=== PATIENT | male | born 1935 | race Caucasian/White ===

== ENCOUNTER → 2016-05-23 | Outpatient (CLI) | payer BC ==
[~2016-05-23] MED LIST: ATEN-173 PO; ATOR-26 PO; CALC500C70 PO; CELE100C PO; CLB100 PO; CMP/10 PO; CYCL10TA6 PO; CYCL1CAP19 PO; DENOINJ IM; ENOX80IN SQ; ENZA1CAP PO; EZET10TA63 PO; IBUP-103 PO; LNX125 PO; LPRI75 IM; LVQ750 PO; MTR500 PO; MTRG45 TOP; MULTTAB PO; NTRGSL/4 UT; PRED-301 PO; PRED10TA PO; ULT50 PO; WARF5TAB7 PO; [UNRECOGNIZED DRUG - CODE] PO; atenolol PO
[2016-05-23 09:56] LABS: CHOLESTEROL/HDL RATIO 2.4
== END | disposition home or self-care (01) ==
LOC: C.LAB1850 08:42
PROVIDERS: ATTEND Internal Medicine Cardiovascular Disease
DX: E78.5 Hyperlipidemia, unspecified (principal)

== ENCOUNTER → 2016-06-27 | Outpatient (CLI) | payer BC ==
--- NOTE | 2016-06-27 14:55 | DIAGNOSTIC IMAGING REPORT ---
ULTRASOUND RIGHT VENOUS DOPP LOWER EXT UNILAT CLINICAL HISTORY: Right leg swelling. Prostate carcinoma. COMPARISON STUDY: No previous studies for comparison. FINDINGS: No thrombus is visualized in the common femoral or superficial femoral vein. There is acute occlusive thrombus within the right popliteal vein. Thrombus is also visualized within the right peroneal vein. IMPRESSION: Acute right popliteal vein DVT. Electronically signed by: Chandana Rojo M.D. 06/27/2016 2:54 PM Dictated Date/Time: 06/27/2016 2:50 PM
== END | disposition home or self-care (01) ==
LOC: C.ULTRBC 14:16
PROVIDERS: ATTEND Nurse Practitioner Family
DX: C61 Malignant neoplasm of prostate (principal); I82.431 Acute embolism and thrombosis of right popliteal vein

== ENCOUNTER → 2016-08-14 | Outpatient (CLI) | payer BC ==
[~2016-08-14] MED LIST changes: -CLB100 PO; -CYCL10TA6 PO; -IBUP-103 PO
--- NOTE | 2016-08-14 13:47 | DIAGNOSTIC IMAGING REPORT ---
ABDOMEN AND PELVIS CT WITH IV AND ORAL CONTRAST CT DOSE: HISTORY: Prostate carcinoma PROSTATE CANCER F/U CR = 1.3 ON 07/24/16 TECHNIQUE: Multiaxial CT images of the abdomen and pelvis were performed following the use of intravenous and oral contrast. COMPARISON STUDY: 11/04/2015 FINDINGS: Stable basilar nodularity and calcified granulomas. Liver spleen and pancreas remain unremarkable. Pancreas remains atrophic. Bilateral renal cysts unchanged. There is interval development of mild retroperitoneal and or perinephric adenopathy. Several nodes are present measuring from 0.8 to 1.6 cm. Several retrocrural nodes are present measuring up to 9 mm. Bowel pattern is nonobstructive. The rest of chronic sigmoid diverticulosis. There is a small focus of sclerosis involving the anterior margin left femoral head. Moderate degenerative change of the osseous structures persists. The sclerotic change anterior aspect of at least one right rib is unchanged. IMPRESSION: 1. Findings of a developing and or progressive aortic and retrocrural adenopathy. 2. Possible slight progression of bony metastatic change. 3. Stable bilateral renal cysts. Electronically signed by: Prudencio Pickens M.D. 08/14/2016 1:45 PM Dictated Date/Time: 08/14/2016 1:33 PM
--- NOTE | 2016-08-14 13:54 | DIAGNOSTIC IMAGING REPORT ---
CHEST CT WITH CONTRAST CT DOSE: 783.41 mGy.cm HISTORY: PROSTATE CANCER F/U CR = 1.3 ON 07/24/16 TECHNIQUE: Multiaxial CT images of the chest were performed following the intravenous administration of contrast. COMPARISON: Chest CT 11/04/2015. FINDINGS: The central airways are patent. No pleural effusions. No pneumothorax. Multiple scattered calcified granulomas are seen throughout the lungs. Patchy groundglass density within the right lung apex also remains unchanged. No new focal lung consolidations. Mild peripheral interstitial thickening at the lung bases persists. Old, healed left rib fractures. No change in the dense sclerotic lesion within the right fifth rib. There is an 8 mm sclerotic focus within the left anterior fifth rib on image 39 of 60. This is also unchanged. No new blastic lesions identified. No change in the 12 mm right axilla lymph node. There are 2 new enlarged right axillary lymph node measuring up to 19 x 14 mm. Calcified mediastinal and hilar lymph nodes. The heart is normal in size. The central pulmonary arteries are patent. Normal caliber thoracic aorta. IMPRESSION: 1. Progressive right axillary lymphadenopathy. 2. No change in the dense blastic lesion within the right anterior fifth rib and small sclerotic focus within the left anterior fifth rib. 3. Stable chronic changes within the lungs. Electronically signed by: Yinka Chang M.D. 08/14/2016 1:53 PM Dictated Date/Time: 08/14/2016 1:45 PM
--- NOTE | 2016-08-14 15:07 | DIAGNOSTIC IMAGING REPORT ---
WHOLE BODY BONE SCAN HISTORY: PROSTATE CANCER RADIOTRACER: 26.3 mCi Tc-99m MDP STUDY/IMAGES: Planar anterior and posterior whole body imaging was performed 3 hours following the intravenous administration of radiotracer. COMPARISON: Bone scan 01/20/2016. FINDINGS: There is again noted faint radiotracer uptake associated with the right anterior fifth rib. Mild radiotracer uptake within the left AC joint, right L4-5 facet, and wrists favor degenerative change. This remains unchanged. There is also a focal area of radiation uptake at the left hip which favors degenerative change. IMPRESSION: No change in the mild radiotracer uptake associated with the right anterior fifth rib lesion. No additional areas of suspicious radiotracer uptake seen within the axial or appendicular skeleton. Electronically signed by: Yinka Chang M.D. 08/14/2016 3:06 PM Dictated Date/Time: 08/14/2016 3:00 PM
== END | disposition home or self-care (01) ==
LOC: C.CTS 10:55
PROVIDERS: ATTEND Nurse Practitioner Family
DX: C61 Malignant neoplasm of prostate (principal); R59.0 Localized enlarged lymph nodes; N28.1 Cyst of kidney, acquired; M89.9 Disorder of bone, unspecified

== ENCOUNTER 2016-09-29 09:37 | Inpatient (IN) | payer OTHER, BC ==
[2016-09-29] VITALS (22 sets, daily range): BP systolic 75–101; BP diastolic 43–75; PULSE 110–120; TEMP 36.4–38.1; O2SAT 81–96; BMI 26.4
[~2016-09-29] VITALS: Ht 177.8 cm; Wt 85.1 kg
[~2016-09-29 09:37] MED LIST changes: -CELE100C PO; -CMP/10 PO; -CYCL1CAP19 PO; -ENOX80IN SQ; -ENZA1CAP PO; -LNX125 PO; -LVQ750 PO; -MTR500 PO; -MTRG45 TOP; -PRED10TA PO; -ULT50 PO; -[UNRECOGNIZED DRUG - CODE] PO; -atenolol PO
[2016-09-29] MEDS ORDERED: SODIUM CHLORIDE 0.9% 500ML 500 ML IV STA ×2 (10:04→21:04)
[2016-09-29] MEDS ORDERED: CMP/10 PO (10:27)
[2016-09-29] MEDS ORDERED: ENZA1CAP PO (10:27)
[2016-09-29] MEDS ORDERED: ULT50 PO (10:27)
[2016-09-29] MEDS ORDERED: PRED10TA PO (10:27)
[2016-09-29] MEDS ORDERED: CELE100C PO (10:27)
--- NOTE | 2016-09-29 10:35 | DIAGNOSTIC IMAGING REPORT ---
CHEST ONE VIEW PORTABLE HISTORY: Short of breath. COMPARISON: Chest 06/10/2013. Chest CT 08/14/2016. FINDINGS: Multiple scattered calcified granulomas are again noted. Small peripheral airspace of passive the within the right upper lobe is not significant changed. The heart is normal in size. Calcified mediastinal lymph nodes. No pleural effusions. No pneumothorax. Right anterior fifth rib sclerotic lesion is again noted. Question small nodular density the left lung base is likely due to a left anterior fifth rib lesion. This is unchanged from the prior chest CT. IMPRESSION: No change compared to the prior chest CT. Groundglass right upper lobe opacity remains stable and may represent chronic scarring. Bilateral anterior fifth rib sclerotic lesions are again noted. Electronically signed by: Yinka Chang M.D. 09/29/2016 10:33 AM Dictated Date/Time: 09/29/2016 10:30 AM
[2016-09-29 10:57] LABS: INR 1.9 (0.9-1.1); PARTIAL THROMBOPLASTIN RATIO 1.7
[2016-09-29 11:06] LABS: BUN/CREATININE RATIO 18.9 (10-20); CREATININE 2.1 mg/dl (0.60-1.40); MAGNESIUM 2.1 mg/dl (1.8-2.4); POTASSIUM 5.4 mmol/L (3.5-5.1)
[2016-09-29 11:08] LABS: CALCIUM 9.2 mg/dl (8.5-10.1); MEAN CORPUSCULAR HGB CONC 34.5 g/dl (32-36)
[2016-09-29] MEDS ORDERED: NovoLIN-R INSULIN PER UNIT CHARGE IV STA (11:08)
[2016-09-29] MEDS ORDERED: DEXTROSE 50% 50 ML SYR IV STA (11:08)
[2016-09-29 11:13] LABS: MEAN PLATELET VOLUME 10.2 fL (7.4-10.4); PLATELET COUNT 53 K/uL (130-400)
[2016-09-29 11:18] LABS: HEMATOCRIT 36.8 % (42-52); MEAN CELL VOLUME 95.3 fL (80-100); MEAN CORPUSCULAR HEMOGLOBIN 32.9 pg (25-34); RED BLOOD COUNT 3.86 M/uL (4.7-6.1); WHITE BLOOD COUNT 0.15 K/uL (4.8-10.8)
[2016-09-29 11:22] LABS: COMPLETE YES; GIANT PLATELETS 1+; LARGE PLATELETS 1+; LYMPH % 73.3 %; LYMPH ABS # 0.11 K/uL (1.2-3.4); NEUT % 6.7 %; PLT ESTIMATE DECREASED; TOXIC GRANULATION 1+
[2016-09-29] MEDS ORDERED: NITROGLYCERIN 0.4 MG SL PER TAB CHARGE UT PRN (11:45)
[2016-09-29] MEDS ORDERED: TRAMADOL HCL 50 MG TAB PO PRN (11:45)
[2016-09-29] MEDS ORDERED: MAGNESIUM HYDROXIDE SUSP 30 ML UDC PO PRN (12:15)
[2016-09-29] MEDS ORDERED: POLYETHYLENE (MIRALAX) 17 GM PACK PO PRN (12:15)
[2016-09-29] MEDS ORDERED: ALUMINUM/MAGNESIUM/SIMETH (MAALOX MAX) 30 ML UDC PO PRN (12:15)
[2016-09-29] MEDS ORDERED: ONDANSETRON INJ 2 MG/ML 2 ML VIAL IV PRN (12:15)
--- NOTE | 2016-09-29 12:40 | History and Physical ---
History & Physical Date & Time of Service: Sep 29, 2016 at 12:21 Chief Complaint: Lethargic Primary Care Physician: Sylvia Lara MD History of Present Illness Source: patient, family This patient presents particularly one week after recent chemotherapy for metastatic prostate cancer with decreased appetite, nausea, mild abdominal pain and profound weakness. The patient has had similar events in the past after chemotherapy but has not been in the hospital most recently. Patient states he has not been in he drink much due to his nausea has tried oral antiemetics without much help. The patient did receive Neulasta one week ago on Sunday the patient had variable bowel response but has not been constipated, he claims he making timmy colored urine. His only other complaint is mild neck discomfort from DJD of the cervical spine In the emergency department he started pancytopenia due to antineoplastic chemotherapy and have acute on chronic renal failure stage III Past Medical/Surgical History Medical Problems: (1) Arthritis pain of shoulder Status: Chronic (2) Prostate cancer Permanent Comment: blastic skeletal lesions Status: Chronic Family History Cancer Heart disease Hypertension Social History Smoking Status: Former Smoker Marital Status: Occupational Status: retired Immunizations History of Influenza Vaccine: No History of Tetanus Vaccine?: utd Tetanus Immunization Date: Nov 18, 2009 History of Pneumococcal: Yes History of Hepatitis B Vaccine: No Multi-Drug Resistant Organisms History of MDRO: No Allergies Coded Allergies: Amoxicillin (Verified Allergy, Intermediate, HIVES, 06/30/16) unverified; has had them since with no problem Cephalexin (Verified Allergy, Intermediate, HIVES, 06/30/16) has had recent allergy testing; unverified Levofloxacin (Verified Allergy, Intermediate, RED VEIN, FLUSHED, 03/06/14) Valacyclovir (Verified Allergy, Unknown, Unknown rxn, 03/06/14) Azithromycin (Verified Adverse Reaction, Mild, Nausea/Vomiting, 06/30/16) unverified; has taken since without porblems Home Medications Scheduled Atenolol (Tenormin), 12.5 MG PO DAILY Atorvastatin (Lipitor), 80 MG PO DAILY Calcium/Vitamin D (Os-Colton 500 Plus D), 1 TABLET PO BID Celecoxib (Celebrex), 200 MG PO DAILY Denosumab (Xgeva), 120 MG IM Q4WK Enzalutamide (Xtandi), 160 MG PO DAILY Ezetimibe (Zetia), 10 MG PO DAILY Leuprolide Acetate (Lupron Depot), 7.5 MG IM Q3 MONTHS Multivitamins/Minerals (Mvi With Minerals), 1 TABLET PO DAILY Prednisone Tab (Prednisone), 10 MG PO DAILY Warfarin Sod (Jantoven), 2.5 MG PO 5XWK Warfarin Sod (Jantoven), 5 MG PO 2XWK Scheduled PRN Nitroglycerin (Nitrostat), 0.4 MG UT UD PRN for Chest Pain Prochlorperazine Maleate (Prochlorperazine Maleate), 10 MG PO Q8 PRN for Nausea Tramadol HCl (Tramadol HCl), 50 MG PO Q6 PRN for Pain Review of Systems ROS: well nourished well developed No double vision blurry vision No problems with speech or swallowing, but has dry mouth No palpitations, chest pain or pressure Wheezing or breathing issues Mild abdominal pain nausea without vomiting or diarrhea No burning urine urine frequency or changes in color No focal joint pain or muscle pain, but profound weakness No skin rashes gross oral lesions No unusual bruising or bleeding No focused back pain or numbness or loss of strength, but cervical spine pain as mentioned this is 3 sharp in nature /10 worsened with movements No changes in memory or confusion Physical Exam Vital Signs Date Time Temp Pulse Resp B/P (MAP) Pulse Ox O2 Delivery O2 Flow Rate FiO2 09/29/16 11:53 94 Room Air 09/29/16 11:22 103 16 105/66 94 Room Air 09/29/16 11:04 101 16 95/54 105 85/54 09/29/16 10:01 102 09/29/16 09:40 36.9 101 18 92/69 94 Room Air General Appearance: WD/WN, + mild distress Head: normocephalic, atraumatic Eyes: PERRL, EOMI, sclerae normal ENT: hearing grossly normal, pharynx normal Neck: supple, no JVD Respiratory/Chest: chest non-tender, lungs clear, normal breath sounds Cardiovascular: regular rate, rhythm, no murmur Abdomen/GI: normal bowel sounds, soft, + tenderness Back: no CVA tenderness, no muscle spasm Extremities/Musculoskelatal: no pedal edema, normal range of motion Neurologic/Psych: alert, oriented x 3 Skin: normal color, warm/dry, no rash Diagnostics Laboratory Results Results Past 24 Hours Test 09/29/16 10:35 09/29/16 10:41 Range/Units White Blood Count 0.15 4.8-10.8 K/uL Red Blood Count 3.86 4.7-6.1 M/uL Hemoglobin 12.7 14.0-18.0 g/dL Hematocrit 36.8 42-52 % Mean Corpuscular Volume 95.3 80-100 fL Mean Corpuscular Hemoglobin 32.9 25-34 pg Mean Corpuscular Hemoglobin Concent 34.5 32-36 g/dl Platelet Count 53 130-400 K/uL Mean Platelet Volume 10.2 7.4-10.4 fL Neutrophils (%) (Auto) 6.7 % Lymphocytes (%) (Auto) 73.3 % Monocytes (%) (Auto) 20.0 % Eosinophils (%) (Auto) 0.0 % Basophils (%) (Auto) 0.0 % Neutrophils # (Auto) 0.01 1.4-6.5 K/uL Lymphocytes # (Auto) 0.11 1.2-3.4 K/uL Monocytes # (Auto) 0.03 0.11-0.59 K/uL Eosinophils # (Auto) 0.00 0-0.5 K/uL Basophils # (Auto) 0.00 0-0.2 K/uL RDW Standard Deviation 44.8 36.4-46.3 fL RDW Coefficient of Variation 12.9 11.5-14.5 % Immature Granulocyte % (Auto) 0.0 % Immature Granulocyte # (Auto) 0.00 0.00-0.02 K/uL Toxic Granulation 1+ Platelet Estimate DECREASED Large Platelets 1+ Giant Platelets 1+ Prothrombin Time 21.0 9.0-12.0 SECONDS Prothromb Time International Ratio 1.9 0.9-1.1 Activated Partial Thromboplast Time 44.3 21.0-31.0 SECONDS Partial Thromboplastin Ratio 1.7 Sodium Level 133 136-145 mmol/L Potassium Level 5.4 3.5-5.1 mmol/L Chloride Level 101 98-107 mmol/L Carbon Dioxide Level 23 21-32 mmol/L Anion Gap 9.0 3-11 mmol/L Blood Urea Nitrogen 40 7-18 mg/dl Creatinine 2.10 0.60-1.40 mg/dl Est Creatinine Clear Calc Drug Dose 28.0 ml/min Estimated GFR () 33.0 Estimated GFR (Non- 28.5 BUN/Creatinine Ratio 18.9 10-20 Random Glucose 93 70-99 mg/dl Calcium Level 9.2 8.5-10.1 mg/dl Magnesium Level 2.1 1.8-2.4 mg/dl Total Bilirubin 1.1 0.2-1 mg/dl Direct Bilirubin 0.4 0-0.2 mg/dl Aspartate Amino Transf (AST/SGOT) 22 15-37 U/L Alanine Aminotransferase (ALT/SGPT) 21 12-78 U/L Alkaline Phosphatase 47 45-117 U/L Total Protein 6.6 6.4-8.2 gm/dl Albumin 2.9 3.4-5.0 gm/dl Bedside Troponin I < 0.030 0-0.045 ng/ml CXR normal (minor changes rul non acute) Normal EKG Impression Assessment and Plan 79-year-old male with pancytopenia related to antineoplastic medication as treatment for prostate cancer. With acute on chronic renal failure stage III Regarding his pancytopenia is hemoglobin is 12. Platelets are 53 and neutrophil count is less than 0.1. The patient did receive Neulasta and should have a rebound of his bone marrow soon. We'll provide supportive care, he does not need platelet transfusion at this point in time as he is not bleeding, and he will have Neutropenic precautions Acute renal failure with hyperkalemia, the patient will be hydrated at this time he is no acute EKG changes not administer Kayexalate unless this persists and is currently 5.4 normal being 5.1 or less Coumadin anticoagulation for DVT in May, I found coagulation clinic who follows his INR since he was 3 months since his acute event we will let her know regarding the continuation of Coumadin versus transition to Lovenox at preventative dosing History of coronary artery disease status post stenting and and non-STEMI no aspirin due to low platelet count continue atenolol and risk reduction with atorvastatin and Zetia Level of Care Med/Surg Advanced Directives Existing Living Will: Yes Existing Power of Asset Recovery Specialist: Yes Resuscitation Status FULL RESUSCITATION VTE Prophylaxis VTE Risk Assessment Done? Y/N: Yes Risk Level: High Given or contraindicated: Warfarin (Coumadin)
[2016-09-29] MEDS ORDERED: HYDROCORTISONE IV 50 MG in SYRINGE 0 ML IV SCH (14:00)
[2016-09-29] MEDS: SODIUM CHLORIDE 0.9% 1000ML 1,000 ML IV SCH ×2 (14:23→22:01)
[2016-09-29 14:57] LABS: URINE APPEARANCE CLEAR (CLEAR); URINE BILIRUBIN NEG (NEG); URINE COLOR DK YELLOW; URINE EPITHELIAL CELL AUTO 20-30 /lpf (0-5); URINE NITRITE NEG (NEG); URINE PH 5.5 (4.5-7.5); URINE SPECIFIC GRAVITY 1.018 (1.000-1.030); UROBILINOGEN NEG (NEG)
[2016-09-29 15:08] LABS: MANUAL MICROSCOPIC REQUIRED? NO; REVIEW REQ? YES
[2016-09-29] MEDS ORDERED: WARFARIN SOD 5 MG TAB PO SCH (16:00)
[2016-09-29 16:07] LABS: URINE PATH CASTS 0-3 GRANULAR CASTS /lpf (0)
[2016-09-29] MEDS ORDERED: SODIUM CHLORIDE 0.9% 500ML 500 ML IV SCH (16:15)
[2016-09-29] MEDS ORDERED: MoRPHine SULFATE 2 MG/ML CARP IV PRN (16:15)
--- NOTE | 2016-09-29 16:29 | EMERGENCY ROOM VISIT NOTE ---
History Report prepared by Meaghan: Milly Drummond Under the Supervision of: Dr. Nathanael Villagran M.D. First contact with patient: 09:56 Chief Complaint: WEAKNESS Stated Complaint: LETHARGIC History of Present Illness The patient is a 81 year old male who presents to the Emergency Room with complaints of weakness beginning 2 weeks ago. The patient states that he has metastatic prostate cancer that was found in 2 lymph nodes. He states that he had chemotherapy 8 days ago and that he has felt weak ever since, but did not pass out. He reports that he was short of breath this morning and has also had abdominal pain which has subsided. He denies vomiting, chest pain, fevers, and headaches. The patient states that he has not had much to eat since yesterday. He reports that he had clots in his right leg and that he is currently on Coumadin. His right leg is normally larger than the left. The patient also complains of right shoulder pain from arthritis that he has had for 10 years. He came in today because he felt weaker than normal today. Source of History: patient Onset: 2 weeks ago Position: other (global) Quality: other (weakness ) Timing: constant Modifying Factors (Relieving): other (none) Associated Symptoms: + SOB, + abdominal pain, No fevers, No headache, No chest pain, No vomiting Review of Systems See HPI for pertinent positives & negatives. A total of 10 systems reviewed and were otherwise negative. Past Medical & Surgical Medical Problems: (1) Arthritis pain of shoulder (2) CAD (coronary artery disease) (3) Chronic diastolic (congestive) heart failure (4) Pancytopenia due to antineoplastic chemotherapy (5) Prostate cancer Family History Cancer Heart disease Hypertension Social History Smoking Status: Never Smoker Alcohol Use: occasionally Marital Status: Housing Status: lives with significant other Occupation Status: retired Current/Historical Medications Scheduled Atenolol (Tenormin), 12.5 MG PO DAILY Atorvastatin (Lipitor), 80 MG PO DAILY Calcium/Vitamin D (Os-[place] 500 Plus D), 1 TABLET PO BID Celecoxib (Celebrex), 200 MG PO DAILY Denosumab (Xgeva), 120 MG IM Q4WK Ezetimibe (Zetia), 10 MG PO DAILY Leuprolide Acetate (Lupron Depot), 7.5 MG IM Q3 MONTHS Multivitamins/Minerals (Mvi With Minerals), 1 TABLET PO DAILY Prednisone Tab (Prednisone), 10 MG PO DAILY Warfarin Sod (Jantoven), 2.5 MG PO 5XWK Warfarin Sod (Jantoven), 5 MG PO 2XWK Scheduled PRN Nitroglycerin (Nitrostat), 0.4 MG UT UD PRN for Chest Pain Prochlorperazine Maleate (Prochlorperazine Maleate), 10 MG PO Q8 PRN for Nausea Tramadol HCl (Tramadol HCl), 50 MG PO Q6 PRN for Pain Allergies Coded Allergies: Amoxicillin (Verified Allergy, Intermediate, HIVES, 06/30/16) unverified; has had them since with no problem Cephalexin (Verified Allergy, Intermediate, HIVES, 06/30/16) has had recent allergy testing; unverified Levofloxacin (Verified Allergy, Intermediate, RED VEIN, FLUSHED, 03/06/14) Valacyclovir (Verified Allergy, Unknown, Unknown rxn, 03/06/14) Azithromycin (Verified Adverse Reaction, Mild, Nausea/Vomiting, 06/30/16) unverified; has taken since without porblems Physical Exam Vital Signs Date Time Temp Pulse Resp B/P (MAP) Pulse Ox O2 Delivery O2 Flow Rate FiO2 09/29/16 11:53 94 Room Air 09/29/16 11:22 103 16 105/66 94 Room Air 09/29/16 11:04 101 16 95/54 105 85/54 09/29/16 10:01 102 09/29/16 09:40 36.9 101 18 92/69 94 Room Air Physical Exam Constitutional: Vital signs reviewed. Hypotensive. Eyes: Pupils are equal round reactive to light. Conjunctiva are noninjected. ENT: Pharynx is clear without erythema or exudate. Mucous membranes are moist. Neck supple without meningeal signs. No midline tenderness to the cervical spine. Respiratory: Clear to auscultation bilaterally. Breath sounds are equal bilaterally. Cardiovascular: Regular rate and rhythm. No rubs or gallops. GI: Soft, nondistended and nontender. Bowel sounds are present. Musculoskeletal: Right leg is larger than the left. No lower extremity tenderness. No bony tenderness to the left shoulder. Integumentary: No cyanosis. Neurological: The patient is awake and alert. No focal deficits. Psychiatric: Normal affect. Medical Decision & Procedures ER Provider Diagnostic Interpretation: X-ray results as stated below per interpretation by me and the radiologist: CHEST ONE VIEW PORTABLE HISTORY: Short of breath. COMPARISON: Chest 06/10/2013. Chest CT 08/14/2016. FINDINGS: Multiple scattered calcified granulomas are again noted. Small peripheral airspace of passive the within the right upper lobe is not significant changed. The heart is normal in size. Calcified mediastinal lymph nodes. No pleural effusions. No pneumothorax. Right anterior fifth rib sclerotic lesion is again noted. Question small nodular density the left lung base is likely due to a left anterior fifth rib lesion. This is unchanged from the prior chest CT. IMPRESSION: No change compared to the prior chest CT. [place]glass right upper lobe opacity remains stable and may represent chronic scarring. Bilateral anterior fifth rib sclerotic lesions are again noted. Electronically signed by: Yinka Chang M.D. 09/29/2016 10:33 AM Dictated Date/Time: 09/29/2016 10:30 AM Laboratory Results 09/29/16 10:35 Red Blood Count 3.86, Mean Corpuscular Volume 95.3, Mean Corpuscular Hemoglobin 32.9, Mean Corpuscular Hemoglobin Concent 34.5, Mean Platelet Volume 10.2, Neutrophils (%) (Auto) 6.7, Lymphocytes (%) (Auto) 73.3, Monocytes (%) (Auto) 20.0, Eosinophils (%) (Auto) 0.0, Basophils (%) (Auto) 0.0, Neutrophils # (Auto ) 0.01, Lymphocytes # (Auto) 0.11, Monocytes # (Auto) 0.03, Eosinophils # (Auto ) 0.00, Basophils # (Auto) 0.00 09/29/16 10:35 Test 09/29/16 00:00 09/29/16 10:35 09/29/16 10:41 Urine Color DK YELLOW Urine Appearance CLEAR (CLEAR) Urine pH 5.5 (4.5-7.5) Urine Specific [place] 1.018 (1.000-1.030) Urine Protein 2+ (NEG) Urine Glucose (UA) NEG (NEG) Urine Ketones NEG (NEG) Urine Occult Blood 1+ (NEG) Urine Nitrite NEG (NEG) Urine Bilirubin NEG (NEG) Urine Urobilinogen NEG (NEG) Urine Leukocyte Esterase NEG (NEG) Urine WBC (Auto) 1-5 /hpf (0-5) Urine RBC (Auto) 0-4 /hpf (0-4) Urine Hyaline Casts (Auto) 10-30 /lpf (0-5) Urine Epithelial Cells (Auto) 20-30 /lpf (0-5) Urine Bacteria (Auto) NEG (NEG) Urine Pathogenic Casts 0-3 GRANULAR CASTS /lpf (0) White Blood Count 0.15 K/uL (4.8-10.8) Red Blood Count 3.86 M/uL (4.7-6.1) Hemoglobin 12.7 g/dL (14.0-18.0) Hematocrit 36.8 % (42-52) Mean Corpuscular Volume 95.3 fL (80-100) Mean Corpuscular Hemoglobin 32.9 pg (25-34) Mean Corpuscular Hemoglobin Concent 34.5 g/dl (32-36) Platelet Count 53 K/uL (130-400) Mean Platelet Volume 10.2 fL (7.4-10.4) Neutrophils (%) (Auto) 6.7 % Lymphocytes (%) (Auto) 73.3 % Monocytes (%) (Auto) 20.0 % Eosinophils (%) (Auto) 0.0 % Basophils (%) (Auto) 0.0 % Neutrophils # (Auto) 0.01 K/uL (1.4-6.5) Lymphocytes # (Auto) 0.11 K/uL (1.2-3.4) Monocytes # (Auto) 0.03 K/uL (0.11-0.59) Eosinophils # (Auto) 0.00 K/uL (0-0.5) Basophils # (Auto) 0.00 K/uL (0-0.2) RDW Standard Deviation 44.8 fL (36.4-46.3) RDW Coefficient of Variation 12.9 % (11.5-14.5) Immature Granulocyte % (Auto) 0.0 % Immature Granulocyte # (Auto) 0.00 K/uL (0.00-0.02) Toxic Granulation 1+ Platelet Estimate DECREASED Large Platelets 1+ Giant Platelets 1+ Prothrombin Time 21.0 SECONDS (9.0-12.0) Prothromb Time International Ratio 1.9 (0.9-1.1) Activated Partial Thromboplast Time 44.3 SECONDS (21.0-31.0) Partial Thromboplastin Ratio 1.7 Anion Gap 9.0 mmol/L (3-11) Est Creatinine Clear Calc Drug Dose 28.0 ml/min Estimated GFR () 33.0 Estimated GFR (Non- 28.5 BUN/Creatinine Ratio 18.9 (10-20) Calcium Level 9.2 mg/dl (8.5-10.1) Magnesium Level 2.1 mg/dl (1.8-2.4) Total Bilirubin 1.1 mg/dl (0.2-1) Direct Bilirubin 0.4 mg/dl (0-0.2) Aspartate Amino Transf (AST/SGOT) 22 U/L (15-37) Alanine Aminotransferase (ALT/SGPT) 21 U/L (12-78) Alkaline Phosphatase 47 U/L (45-117) Total Protein 6.6 gm/dl (6.4-8.2) Albumin 2.9 gm/dl (3.4-5.0) Bedside Troponin I < 0.030 ng/ml (0-0.045) Laboratory results as reviewed by me. Medications Administered Medications (Trade) Dose Ordered Sig/Bisi Route Start Time Stop Time Status Last Admin Dose Admin Sodium Chloride 500 ml @ 999 mls/hr Q31M STAT IV 09/29/16 10:04 09/29/16 10:34 DC 09/29/16 11:00 999 MLS/HR Insulin Human Regular (novoLIN-R U-100 PER UNIT) 5 units NOW STAT IV 09/29/16 11:08 09/29/16 11:09 DC 09/29/16 11:25 5 UNITS Dextrose (Dextrose 50% 50ML Syringe) 30 ml NOW STAT IV 09/29/16 11:08 09/29/16 11:09 DC 09/29/16 11:27 30 ML Ondansetron HCl (Zofran Inj) 4 mg Q6H PRN IV 09/29/16 12:15 10/29/16 12:14 09/29/16 14:50 4 MG Sodium Chloride 1,000 ml @ 125 mls/hr Q8H IV 09/29/16 12:15 10/29/16 12:14 09/29/16 14:23 125 MLS/HR ECG Indication: weakness Rate (beats per minute): 101 Rhythm: sinus tachycardia Findings: Q waves (Inferior), T-wave inversion (Anterolateral), other (low voltage QRS) ED Course 0958: The patient was evaluated in room A2. A complete history and physical exam was performed. 1004: Ordered Sodium Chloride 500 ml @ 999 mls/hr IV. 1108: Ordered Dextrose 30 ml IV, Insulin Human Regular 5 units IV. 1118: I discussed the test results with the patient. 1125: I spoke with Dr. Kimbrough of [facility]. We discussed the patient and his results. The patient will be further evaluated by Dr. Kimbrough. Medical Decision This is an 81-year-old male who presents with weakness. Differential diagnosis includes anemia, neutropenia, infection, dehydration, renal failure, cardiac. I did perform a limited focused review of portions of the patient's old chart on the electronic medical record. The patient has had no recent pertinent visits to this hospital. The patient was found to be hypotensive. Medication Reconciliation: I attest that I have personally reviewed the patient' s current medication list. I did evaluate the patient as noted above. The patient is presenting with generalized weakness. He recently had chemotherapy. He is mildly hypotensive. IV access was established. The patient was placed on a continuous monitor tech. I did treat him with normal saline IV. I did order and personally review the patient's 12-lead EKG and chest x-ray as described above. I did order and review the patient's blood work as noted in the electronic medical record. He is severely neutropenic. He denies any fever. Neutropenia precautions were observed. He also has worsening kidney function. His potassium is elevated. I did treat him with IV insulin and glucose. I did discuss the test results with the patient. I did discuss case with the hospitalist and high risk case manager. Consults Time Called: 1120 Consulting Physician: Dr. Kimbrough- [facility] Returned Call: [address] Kimbrough of [facility]. We discussed the patient and his results. The patient will be further evaluated by Dr. Kimbrough. Impression Primary Impression: Severe neutropenia Additional Impressions: Acute renal failure Hypotension Hyperkalemia Subtherapeutic international normalized ratio (INR) Scribe Attestation The scribe's documentation has been prepared under my direct and personally reviewed by me in its entirety. I confirm that the note above accurately reflects all work, treatment, procedures, and medical decision making performed by me. Departure Information Dispostion Being Evaluated By Hospitalist Referrals Sylvia Lara MD (PCP) Patient Instructions My [facility] Problem Qualifiers Additional Impressions: Acute renal failure Acute renal failure type: unspecified Qualified Codes: N17.9 - Acute kidney failure, unspecified Hypotension Hypotension type: unspecified hypotension type Qualified Codes: I95.9 - Hypotension, unspecified
--- NOTE | 2016-09-29 16:46 | DIAGNOSTIC IMAGING REPORT ---
CT OF THE HEAD WITHOUT CONTRAST CLINICAL HISTORY: Low platelets. Evaluate for hemorrhage. COMPARISON STUDY: Head CT February 15, 2014. CT DOSE: 1228.53 mGy.cm TECHNIQUE: Helical axial images of the head were obtained without IV contrast. Automated exposure control was utilized for the study. FINDINGS: No acute intracranial hemorrhage, midline shift or mass effect is present. Ventricular system is stable. Basilar cisterns are patent. There are no extra-axial collections. Mild white matter hypodensity suggests small vessel disease. There are no findings to suggest acute dural sinus thrombosis or acute territorial infarct. A small amount of fluid is noted within the left mastoid air cells. There are no significant calvarial abnormalities. IMPRESSION: No acute intracranial findings. Electronically signed by: Trell Moseley M.D. 09/29/2016 4:44 PM Dictated Date/Time: 09/29/2016 4:41 PM
[2016-09-29] MEDS: ACETAMINOPHEN 325 MG TAB PO PRN (17:06)
[2016-09-29] MEDS ORDERED: IMIPENEM-CILASTATIN 500 MG in DEXTROSE 5% 100ML 100 ML IV ONE (17:30)
[2016-09-29] MEDS ORDERED: IMIPENEM/CILASTATIN CONSULT ACTIVE PRN (17:30)
[2016-09-29 18:32] LABS: BUN/CREATININE RATIO 16.8 (10-20); CALCIUM 8.3 mg/dl (8.5-10.1); CREATININE 2.4 mg/dl (0.60-1.40); POTASSIUM 4.7 mmol/L (3.5-5.1)
[2016-09-29] MEDS ORDERED: VANCOMYCIN CONSULT ACTIVE SCH (18:35)
[2016-09-29] MEDS ORDERED: NURSING VERBAL MED ORDER ONE ×2 (19:30→21:00)
[2016-09-29] MEDS ORDERED: ALBUMIN HUMAN 25% 12.5 GM/50 ML VIAL IV SCH ×2 (19:45→21:45)
--- NOTE | 2016-09-29 19:51 | Pharmacy Progress Note ---
Pharmacy Antibiotic Consult Date of Service: Sep 29, 2016. Pharmacy Dosing Scope Pharmacy is consulted to initiate vancomycin and imipenem IV dosing therapy, order appropriate labs and adjust drug dose/frequency. Subjective The patient is a 81 year old male admitted on Sep 29, 2016 at 12:20 with neutropenic fever. History of metastatic prostate Ca, chemotherapy one week ago , acute on chronic renal impairment. Objective Height (Feet): 5 Height (Inches): 10.00 Weight (Kilograms): 83.300 Lab Results (24hrs): Test 09/29/16 00:00 09/29/16 10:35 09/29/16 10:41 09/29/16 17:50 Urine Color DK YELLOW Urine Appearance CLEAR (CLEAR) Urine pH 5.5 (4.5-7.5) Urine Specific [place] 1.018 (1.000-1.030) Urine Protein 2+ (NEG) Urine Glucose (UA) NEG (NEG) Urine Ketones NEG (NEG) Urine Occult Blood 1+ (NEG) Urine Nitrite NEG (NEG) Urine Bilirubin NEG (NEG) Urine Urobilinogen NEG (NEG) Urine Leukocyte Esterase NEG (NEG) Urine WBC (Auto) 1-5 /hpf (0-5) Urine RBC (Auto) 0-4 /hpf (0-4) Urine Hyaline Casts (Auto) 10-30 /lpf (0-5) Urine Epithelial Cells (Auto) 20-30 /lpf (0-5) Urine Bacteria (Auto) NEG (NEG) Urine Pathogenic Casts 0-3 GRANULAR CASTS /lpf (0) White Blood Count 0.15 K/uL (4.8-10.8) Red Blood Count 3.86 M/uL (4.7-6.1) Hemoglobin 12.7 g/dL (14.0-18.0) Hematocrit 36.8 % (42-52) Mean Corpuscular Volume 95.3 fL (80-100) Mean Corpuscular Hemoglobin 32.9 pg (25-34) Mean Corpuscular Hemoglobin Concent 34.5 g/dl (32-36) Platelet Count 53 K/uL (130-400) Mean Platelet Volume 10.2 fL (7.4-10.4) Neutrophils (%) (Auto) 6.7 % Lymphocytes (%) (Auto) 73.3 % Monocytes (%) (Auto) 20.0 % Eosinophils (%) (Auto) 0.0 % Basophils (%) (Auto) 0.0 % Neutrophils # (Auto) 0.01 K/uL (1.4-6.5) Lymphocytes # (Auto) 0.11 K/uL (1.2-3.4) Monocytes # (Auto) 0.03 K/uL (0.11-0.59) Eosinophils # (Auto) 0.00 K/uL (0-0.5) Basophils # (Auto) 0.00 K/uL (0-0.2) RDW Standard Deviation 44.8 fL (36.4-46.3) RDW Coefficient of Variation 12.9 % (11.5-14.5) Immature Granulocyte % (Auto) 0.0 % Immature Granulocyte # (Auto) 0.00 K/uL (0.00-0.02) Toxic Granulation 1+ Platelet Estimate DECREASED Large Platelets 1+ Giant Platelets 1+ Prothrombin Time 21.0 SECONDS (9.0-12.0) Prothromb Time International Ratio 1.9 (0.9-1.1) Activated Partial Thromboplast Time 44.3 SECONDS (21.0-31.0) Partial Thromboplastin Ratio 1.7 Sodium Level 133 mmol/L (136-145) 132 mmol/L (136-145) Potassium Level 5.4 mmol/L (3.5-5.1) 4.7 mmol/L (3.5-5.1) Chloride Level 101 mmol/L (98-107) 101 mmol/L (98-107) Carbon Dioxide Level 23 mmol/L (21-32) 20 mmol/L (21-32) Anion Gap 9.0 mmol/L (3-11) 11.0 mmol/L (3-11) Blood Urea Nitrogen 40 mg/dl (7-18) 40 mg/dl (7-18) Creatinine 2.10 mg/dl (0.60-1.40) 2.40 mg/dl (0.60-1.40) Est Creatinine Clear Calc Drug Dose 28.0 ml/min 24.5 ml/min Estimated GFR () 33.0 28.1 Estimated GFR (Non- 28.5 24.2 BUN/Creatinine Ratio 18.9 (10-20) 16.8 (10-20) Random Glucose 93 mg/dl (70-99) 81 mg/dl (70-99) Calcium Level 9.2 mg/dl (8.5-10.1) 8.3 mg/dl (8.5-10.1) Magnesium Level 2.1 mg/dl (1.8-2.4) Total Bilirubin 1.1 mg/dl (0.2-1) Direct Bilirubin 0.4 mg/dl (0-0.2) Aspartate Amino Transf (AST/SGOT) 22 U/L (15-37) Alanine Aminotransferase (ALT/SGPT) 21 U/L (12-78) Alkaline Phosphatase 47 U/L (45-117) Total Protein 6.6 gm/dl (6.4-8.2) Albumin 2.9 gm/dl (3.4-5.0) Bedside Troponin I < 0.030 ng/ml (0-0.045) Troponin I 0.039 ng/ml (0-0.045) Chemistry Specimen Hemolysis Micro Results: 09/29 blood x2 pending Recent Pertinent Medications Item Value Date Time Imipenem/ 110 ml @ 100 mls/hr 09/30/16 0000 Cilastatin Sodium Q6H/IV 250 mg/Dextrose Vancomycin HCl 535 ml @ 200 mls/hr 09/29/16 2000 1750 mg/Sodium TODAY@2000/IV 09/29/16 1942 Chloride Imipenem/ 120 ml @ 100 mls/hr 09/29/16 1730 Cilastatin Sodium 1730 ONCE/IV 09/29/16 1803 500 mg/Dextrose Assessment & Plan Loading dose: vancomycin 1750 mg IV X 1 dose (~21 mg/kg) then: due to changing renal function will redose when random vancomycin level is less than 18. Goal peak level estimate: between 25-40 mcg/mL. Goal trough level estimate: between 15-20 mcg/mL. Random level has been ordered for: 09/30/16 with am labs. Imipenem loading dose 500 mg x1, then 250 mg IV q6h for CrCl 10-50 ml/min. Pharmacy will continue to follow and will adjust dose/frequency as necessary. Thank you
[2016-09-29] MEDS ORDERED: VANCOMYCIN INJ 1,750 MG in SODIUM CHLORIDE 0.9% 500ML 500 ML IV SCH (20:00)
--- NOTE | 2016-09-29 20:03 | DIAGNOSTIC IMAGING REPORT ---
SINGLE VIEW CHEST CLINICAL HISTORY: CHF. FINDINGS: An AP, portable, upright chest radiograph is compared to study performed the same day 09/29/2016 and correlated with chest CT dated 08/14/2016. The examination is significantly degraded by portable technique and patient rotation. There are calcified mediastinal and hilar lymph nodes. The heart is enlarged and there is atherosclerotic calcification of the thoracic aorta. The pulmonary vasculature is noncongested. Chronic interstitial thickening is noted. Numerous calcified granulomas and foci of parenchymal scarring are similar to previous. No lobar consolidation or large pleural effusion is identified. Left basilar atelectasis is observed. No pneumothorax is seen. The bony thorax is grossly intact. IMPRESSION: 1. Cardiomegaly without radiographic evidence of congestive failure. 2. No lobar consolidation or pleural effusion is identified. There has been no significant change from today's earlier examination. 3. Numerous calcified granulomas, foci of parenchymal scarring, and calcified mediastinal/hilar lymph nodes are similar to previous. Electronically signed by: Ramon Ruggiero M.D. 09/29/2016 8:02 PM Dictated Date/Time: 09/29/2016 8:00 PM
[2016-09-29] MEDS ORDERED: NOREPINEPHRINE BIT INJ 8 MG in DEXTROSE 5% 500ML 500 ML IV PRN (21:17)
[2016-09-29 21:47] LABS: ISTAT ALLEN TEST Pass; ISTAT ARTERIAL BLOOD GAS HCO3 17 meq/L (19-24); ISTAT ARTERIAL BLOOD GAS PCO2 28 mmHg (35-46); ISTAT ARTERIAL BLOOD GAS PO2 75 mmHg (80-95); ISTAT ARTERIAL BLOOD GAS pH 7.39 (7.35-7.45); ISTAT CARBON DIOXIDE 17 mEq/l (24-31); ISTAT DELIVERY SYSTEM Cannula; ISTAT SITE R Radial
[2016-09-29 21:47] LABS: ISTAT ALLEN TEST Pass; ISTAT ARTERIAL BLOOD GAS HCO3 19 meq/L (19-24); ISTAT ARTERIAL BLOOD GAS PCO2 36 mmHg (35-46); ISTAT ARTERIAL BLOOD GAS PO2 < 32 mmHg (80-95); ISTAT ARTERIAL BLOOD GAS pH 7.32 (7.35-7.45); ISTAT CARBON DIOXIDE 20 mEq/l (24-31); ISTAT DELIVERY SYSTEM Cannula; ISTAT SITE R Brachial
[2016-09-29 21:49] LABS: HEMATOCRIT 29.4 % (42-52); MEAN CELL VOLUME 94.2 fL (80-100); MEAN CORPUSCULAR HEMOGLOBIN 32.7 pg (25-34); MEAN CORPUSCULAR HGB CONC 34.7 g/dl (32-36); MEAN PLATELET VOLUME 10.4 fL (7.4-10.4); PLATELET COUNT 40 K/uL (130-400); RED BLOOD COUNT 3.12 M/uL (4.7-6.1); WHITE BLOOD COUNT 0.14 K/uL (4.8-10.8)
[2016-09-29] MEDS: HYDROCORTISONE IV 100 MG in SYRINGE 0 ML IV SCH (22:13)
[2016-09-29 22:14] LABS: COMPLETE YES; EOS % 14.3 %; LYMPH % 21.4 %; LYMPH ABS # 0.03 K/uL (1.2-3.4); MONO % 21.4 %; NEUT % 42.9 %
[2016-09-29 22:17] LABS: CKMB/CK RATIO 0.7 (0-3.0)
--- NOTE | 2016-09-29 23:03 | Critical Care Consultation ---
Critical Care Consultation Date of Consultation: Sep 29, 2016. Attending Physician: Nathanael Kimbrough M.D. Reason for Consultation: Hypotension History of Present Illness The patient is an 81-year-old man with a history of prostate cancer diagnosed in 2004. He has had many different treatments for what is now metastatic prostate cancer, most recently receiving Cabizatexel at [facility] 8 days ago. He presented to the emergency department today complaining of weakness. His reports that after his treatment with chemotherapy he was constipated but that seemed to pass. He became increasingly weak to the point where he couldn't walk today. She denies any falls but he also has had some complaints of shortness of breath and decreased appetite. He had some nausea but no vomiting. She believes he was drinking well until yesterday. He cannot give me any history of present secondary to drowsiness. He has chronic neck and shoulder pain but denies any recent headache, chest pain, fevers, chills, diarrhea. He has a history of a right lower extremity DVT and has been on Coumadin since May of this year. His denies any cough, nasal congestion, chest congestion, rashes. He was seen in the emergency department where labs were drawn and he was found to be pancytopenic, specifically his white blood cell count was 0.15, platelets 53. His creatinine was also 2.1 with a potassium of 5.4. He underwent chest x- ray which shows a groundglass right upper lobe opacity which remains stable and may represent chronic scarring. He also has bilateral anterior fifth rib sclerotic lesions which were noted again. He was ordered 500 mL of normal saline, insulin and dextrose and the hospitalist service was consulted for admission. EKG showed sinus tachycardia with anterolateral T-wave inversions. He was admitted to the floor and due to hypotension at some point was transferred to telemetry. He was later transferred to the intensive care unit secondary to ongoing hypotension. It is unclear to me how much IV fluid he is actually received as nothing is documented in the I/O's for the day. A Burdick catheter placement was attempted on arrival to the ICU however it was not able to be placed secondary to resistance with the catheter. Bladder scan shows 42 mL of urine. With fluid boluses in the ICU his blood pressure has improved to the 90s systolically. Blood cultures have also been done during this admission and he has been placed on imipenem and vancomycin. 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 He is undergone brachii therapy as well as multiple medications for his cancer. His most recent chemotherapy was the first dose that he is received of that particular drug for several years. He had a 7 year remission at one point. Chronic kidney disease stage III Right lower extremity DVT Degenerative joint disease of the C-spine History of diverticulosis Hypertension Coronary artery disease status post stenting, followed by Dr. Lea Tonsillectomy Dental extractions Family History Cancer Heart disease Hypertension Social History He quit smoking in 1964. 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 He does not drink any alcohol. Smoking Status: Never Smoker Marital Status: Housing Status: lives with significant other Occupation Status: retired Allergies Coded Allergies: Amoxicillin (Verified Allergy, Intermediate, HIVES, 06/30/16) unverified; has had them since with no problem Cephalexin (Verified Allergy, Intermediate, HIVES, 06/30/16) has had recent allergy testing; unverified Levofloxacin (Verified Allergy, Intermediate, RED VEIN, FLUSHED, 03/06/14) Valacyclovir (Verified Allergy, Unknown, Unknown rxn, 03/06/14) Azithromycin (Verified Adverse Reaction, Mild, Nausea/Vomiting, 06/30/16) unverified; has taken since without porblems Home Medications Scheduled Atenolol (Tenormin), 12.5 MG PO DAILY Atorvastatin (Lipitor), 80 MG PO DAILY Calcium/Vitamin D (Os-[place] 500 Plus D), 1 TABLET PO BID Celecoxib (Celebrex), 200 MG PO DAILY Denosumab (Xgeva), 120 MG IM Q4WK Ezetimibe (Zetia), 10 MG PO DAILY Leuprolide Acetate (Lupron Depot), 7.5 MG IM Q3 MONTHS Multivitamins/Minerals (Mvi With Minerals), 1 TABLET PO DAILY Prednisone Tab (Prednisone), 10 MG PO DAILY Warfarin Sod (Jantoven), 2.5 MG PO 5XWK Warfarin Sod (Jantoven), 5 MG PO 2XWK Scheduled PRN Nitroglycerin (Nitrostat), 0.4 MG UT UD PRN for Chest Pain Prochlorperazine Maleate (Prochlorperazine Maleate), 10 MG PO Q8 PRN for Nausea Tramadol HCl (Tramadol HCl), 50 MG PO Q6 PRN for Pain Current Inpatient Medications Current Inpatient Medications Medications (Trade) Dose Ordered Sig/Bisi Route Start Time Stop Time Status Last Admin Dose Admin Atorvastatin Calcium (Lipitor Tab) 80 mg DAILY PO 09/30/16 08:00 10/30/16 08:59 EZETIMIBE (Zetia Tab) 10 mg DAILY PO 09/30/16 08:00 10/30/16 08:59 Multivitamins/ Minerals (Multivitamin W/ Minerals Tab) 1 tab DAILY PO 09/30/16 08:00 10/30/16 08:59 Tramadol HCl (Ultram Tab) 50 mg Q6 PRN PO 09/29/16 11:45 10/29/16 11:44 Acetaminophen (Tylenol Tab) 650 mg Q4H PRN PO 09/29/16 12:15 10/29/16 12:14 09/29/16 17:06 650 MG Al Hydrox/Mg Hydrox/Simethicone (Maalox Max Susp) 15 ml Q4H PRN PO 09/29/16 12:15 10/29/16 12:14 Magnesium Hydroxide (Milk Of Magnesia Susp) 30 ml Q6H PRN PO 09/29/16 12:15 10/29/16 12:14 Polyethylene (Miralax Powder Packet) 17 gm DAILY PRN PO 09/29/16 12:15 10/29/16 12:14 Ondansetron HCl (Zofran Inj) 4 mg Q6H PRN IV 09/29/16 12:15 10/29/16 12:14 09/29/16 14:50 4 MG Sodium Chloride 1,000 ml @ 125 mls/hr Q8H IV 09/29/16 12:15 10/29/16 12:14 09/29/16 22:01 125 MLS/HR Prednisone (PredniSONE TAB) 10 mg DAILY PO 10/01/16 08:00 10/31/16 08:59 Warfarin Sodium (Coumadin Tab) 2.5 mg SuTuWeThSa@1600 PO 09/30/16 16:00 10/30/16 15:59 Warfarin Sodium (Coumadin Tab) 5 mg MoFr@1600 PO 09/29/16 16:00 10/29/16 15:59 09/29/16 17:07 5 MG Imipenem/ Cilastatin Sodium 250 mg/Dextrose 110 ml @ 100 mls/hr Q6H IV 09/30/16 00:00 10/02/16 00:00 Imipenem/ Cilastatin Sodium (Consult) 1 ea UD PRN N/A 09/29/16 17:30 10/29/16 17:29 Vancomycin HCl (Consult) 1 ea UD N/A 09/29/16 18:35 10/29/16 18:34 Vancomycin HCl 1750 mg/Sodium Chloride 535 ml @ 200 mls/hr TODAY@2000 IV 09/29/16 20:00 09/30/16 02:00 09/29/16 19:42 200 MLS/HR Hydrocortisone Sodium Succinate 100 mg/Syringe 2 ml @ 4 mls/min Q8 IV 09/29/16 22:00 09/30/16 23:00 09/29/16 22:13 4 MLS/MIN Norepinephrine Bitartrate 8 mg/ Dextrose 508 ml @ 0 mls/hr Q0M PRN IV 09/29/16 21:17 10/29/16 21:16 Review of Systems A 12 point review of systems was obtained. No focal weakness, no numbness or tingling. No fevers or chills. No recent diarrhea. Urine has been dark. No back pain. Additional review of systems are negative or noncontributory at 12 point system other than what is presented in history of present illness. Physical Exam Date Time Temp Pulse Resp B/P (MAP) Pulse Ox O2 Delivery O2 Flow Rate FiO2 09/29/16 22:29 37.5 110 20 81/57 (65) 96 Room Air 09/29/16 21:04 82/51 (61) 09/29/16 20:55 36.9 114 22 78/57 (64) 94 Nasal Cannula 3.0 09/29/16 20:42 92 Nasal Cannula 3.0 09/29/16 20:41 36.8 120 22 75/43 (54) 81 Room Air 09/29/16 20:10 36.7 111 20 94/59 (71) 91 Room Air 09/29/16 20:00 Room Air 09/29/16 19:16 36.8 117 22 93/58 (70) 91 Room Air 09/29/16 18:36 99/61 (74) 09/29/16 18:06 36.6 110 24 86/53 (64) 92 Room Air 09/29/16 17:46 79/50 (60) 09/29/16 17:30 114 30 88/58 (68) 92 Room Air 09/29/16 17:00 Room Air 09/29/16 16:45 38.1 111 28 80/53 (62) 93 Room Air 09/29/16 16:42 36.6 112 24 93 09/29/16 15:51 36.6 112 26 75/52 (60) 93 Room Air 09/29/16 13:50 36.4 120 22 101/65 (77) 93 Room Air 09/29/16 13:20 117 16 105/68 09/29/16 12:29 111 16 114/75 09/29/16 12:27 110 09/29/16 11:53 94 Room Air 09/29/16 11:22 103 16 105/66 94 Room Air 09/29/16 11:04 101 16 95/54 105 85/54 09/29/16 10:01 102 09/29/16 09:40 36.9 101 18 92/69 94 Room Air General: This is an elderly man who appears younger than his stated age lying supine in no distress. Neuro: He will awaken and talk to me but falls asleep quite easily. His speech is a bit garbled secondary to his dry mouth. He will follow simple commands and move all 4 extremities spontaneously but is very weak. His exam is limited by his inability to stay awake. Tongue is midline, no facial droop HEENT: Pupils are equally round and reactive to light, no scleral icterus, oral mucosa is extremely dry. Lungs: clear to auscultation bilaterally with moderate inspiratory effort. No rales rhonchi or wheezes Heart: Mildly tachycardic, regular no murmurs noted Abdomen: Soft mildly distended nontender active bowel sounds no rebound no guarding. Extremities: Warm, satisfactory capillary refill, the right leg is slightly larger than the left around the thigh. Radial and dorsalis pedis pulses are 1+ bilaterally. He has a peripheral IV in each arm. Skin: No obvious rashes. Laboratory Results Last 24 Hours Test 09/29/16 00:00 09/29/16 10:35 09/29/16 10:41 09/29/16 17:50 Urine Color DK YELLOW Urine Appearance CLEAR Urine pH 5.5 Urine Specific [place] 1.018 Urine Protein 2+ Urine Glucose (UA) NEG Urine Ketones NEG Urine Occult Blood 1+ Urine Nitrite NEG Urine Bilirubin NEG Urine Urobilinogen NEG Urine Leukocyte Esterase NEG Urine WBC (Auto) 1-5 /hpf Urine RBC (Auto) 0-4 /hpf Urine Hyaline Casts (Auto) 10-30 /lpf Urine Epithelial Cells (Auto) 20-30 /lpf Urine Bacteria (Auto) NEG Urine Pathogenic Casts 0-3 GRANULAR CASTS /lpf White Blood Count 0.15 K/uL Red Blood Count 3.86 M/uL Hemoglobin 12.7 g/dL Hematocrit 36.8 % Mean Corpuscular Volume 95.3 fL Mean Corpuscular Hemoglobin 32.9 pg Mean Corpuscular Hemoglobin Concent 34.5 g/dl Platelet Count 53 K/uL Mean Platelet Volume 10.2 fL Neutrophils (%) (Auto) 6.7 % Lymphocytes (%) (Auto) 73.3 % Monocytes (%) (Auto) 20.0 % Eosinophils (%) (Auto) 0.0 % Basophils (%) (Auto) 0.0 % Neutrophils # (Auto) 0.01 K/uL Lymphocytes # (Auto) 0.11 K/uL Monocytes # (Auto) 0.03 K/uL Eosinophils # (Auto) 0.00 K/uL Basophils # (Auto) 0.00 K/uL RDW Standard Deviation 44.8 fL RDW Coefficient of Variation 12.9 % Immature Granulocyte % (Auto) 0.0 % Immature Granulocyte # (Auto) 0.00 K/uL Toxic Granulation 1+ Platelet Estimate DECREASED Large Platelets 1+ Giant Platelets 1+ Prothrombin Time 21.0 SECONDS Prothromb Time International Ratio 1.9 Activated Partial Thromboplast Time 44.3 SECONDS Partial Thromboplastin Ratio 1.7 Sodium Level 133 mmol/L 132 mmol/L Potassium Level 5.4 mmol/L 4.7 mmol/L Chloride Level 101 mmol/L 101 mmol/L Carbon Dioxide Level 23 mmol/L 20 mmol/L Anion Gap 9.0 mmol/L 11.0 mmol/L Blood Urea Nitrogen 40 mg/dl 40 mg/dl Creatinine 2.10 mg/dl 2.40 mg/dl Est Creatinine Clear Calc Drug Dose 28.0 ml/min 24.5 ml/min Estimated GFR () 33.0 28.1 Estimated GFR (Non- 28.5 24.2 BUN/Creatinine Ratio 18.9 16.8 Random Glucose 93 mg/dl 81 mg/dl Calcium Level 9.2 mg/dl 8.3 mg/dl Magnesium Level 2.1 mg/dl Total Bilirubin 1.1 mg/dl Direct Bilirubin 0.4 mg/dl Aspartate Amino Transf (AST/SGOT) 22 U/L Alanine Aminotransferase (ALT/SGPT) 21 U/L Alkaline Phosphatase 47 U/L Total Protein 6.6 gm/dl Albumin 2.9 gm/dl Bedside Troponin I < 0.030 ng/ml Troponin I 0.039 ng/ml Chemistry Specimen Hemolysis Test 09/29/16 21:25 09/29/16 21:27 09/29/16 21:34 09/29/16 22:25 White Blood Count 0.14 K/uL Red Blood Count 3.12 M/uL Hemoglobin 10.2 g/dL Hematocrit 29.4 % Mean Corpuscular Volume 94.2 fL Mean Corpuscular Hemoglobin 32.7 pg Mean Corpuscular Hemoglobin Concent 34.7 g/dl Platelet Count 40 K/uL Mean Platelet Volume 10.4 fL Neutrophils (%) (Auto) 42.9 % Lymphocytes (%) (Auto) 21.4 % Monocytes (%) (Auto) 21.4 % Eosinophils (%) (Auto) 14.3 % Basophils (%) (Auto) 0.0 % Neutrophils # (Auto) 0.06 K/uL Lymphocytes # (Auto) 0.03 K/uL Monocytes # (Auto) 0.03 K/uL Eosinophils # (Auto) 0.02 K/uL Basophils # (Auto) 0.00 K/uL RDW Standard Deviation 45.1 fL RDW Coefficient of Variation 13.1 % Immature Granulocyte % (Auto) 0.0 % Immature Granulocyte # (Auto) 0.00 K/uL Nucleated RBC Absolute Count (auto) 0.05 K/uL Nucleated Red Blood Cells % 33.7 % Red Blood Cell Morphology Unremarkable Total Creatine Kinase 152 U/L Creatine Kinase MB 1.0 ng/ml Creatine Kinase MB Ratio 0.7 Troponin I 0.043 ng/ml Blood Gas Sample Site R Brachial R Radial Bedside Blood Gas pH (LAB) 7.32 7.39 Bedside Blood Gas pCO2 (LAB) 36 mmHg 28 mmHg Bedside Blood Gas pO2 (LAB) < 32 mmHg 75 mmHg Bedside Blood Gas HCO3 (LAB) 19 meq/L 17 meq/L Bedside Blood Gas Total CO2 20 mEq/l 17 mEq/l Bedside Blood Gas Base Excess (LAB) -8.0 meq/L -8.0 meq/L Bedside Blood Gas O2 Saturation 29.0 % 95.0 % Marko Test Pass Pass Oxygen Delivery Device Cannula Cannula Diagnostic Results EKG from 17:32 --- sinus tachycardia nonspecific ST-T wave changes. CT brain from today, no acute intracranial findings. Chest x-ray 2 from today reviewed. No definite infiltrate or effusion. Numerous calcified granulomas and foci of parenchymal scarring and calcified mediastinal lymph nodes are present. Assessment & Plan 1. Hypotension, likely secondary to volume depletion, sepsis or both. He is responding to volume resuscitation and lactate is pending. 2. Acute kidney injury with metabolic acidosis on chronic kidney disease stage III, likely ATN. Elevated potassium earlier in the day which improved. 3. Metabolic encephalopathy, no definitive focal neurologic signs 4. Neutropenia and thrombocytopenia status post his first round of IV chemotherapy 8 days ago. He has been given Neulasta within the past week, I believe about 1 week ago. 5. History of right lower extremity DVT, on Coumadin with INR 1.9 6. Metastatic prostate cancer 7. Profound weakness Plan: Cardiovascular: I have attempted to obtain consent for triple-lumen catheter and /or PICC line. His is reluctant to sign them recently. Continue volume resuscitation and peripheral vasodilators if necessary. Continue to rule out myocardial infarction and check echocardiogram tomorrow. Discontinue atenolol Infectious disease: Continue broad antibiotic coverage with imipenem and vancomycin. Follow cultures. Await lactic acid and trend. Pro calcitonin. Heme: Continue to watch for signs of bleeding. Consult the hematology/oncology service. Hopefully his counts will begin to recover. Recheck coags tomorrow before deciding on his Coumadin dosing. Pulmonary: If he is awake enough, encourage incentive spirometry. Watch for increasing oxygen requirements and acute lung injury. Renal: Continue volume resuscitation, renal ultrasound has been ordered, appropriately dose of medications and avoid nephrotoxins. I've discontinued Celebrex. Treat elevated potassium medically. Hopefully his renal function will improve, if not attempt coudet catheter. Continue bladder scans. GI: Maintain nothing by mouth status. GI prophylaxis with proton pump inhibitor IV. Endocrine: He is on stress dose steroids started by the hospitalist service. Check a random cortisol. Neuro: Avoid sedatives. He will certainly need physical therapy and occupational therapy once he improves. I discontinued his morphine secondary to its potential sedative effects. I discussed his care in detail with his . Questions were answered. She is still deciding about blood transfusion, triple-lumen catheter and/or PICC line insertion consent. Critical care time 60 minutes
--- NOTE | 2016-09-29 23:07 | DIAGNOSTIC IMAGING REPORT ---
ULTRASOUND KIDNEYS AND BLADDER CLINICAL HISTORY: Acute renal insufficiency. COMPARISON STUDY: Abdominal CT dated 08/14/2016. TECHNIQUE: Real-time, grayscale, and color flow sonography of the kidneys and bladder is performed. Images are reviewed in the transverse and longitudinal planes. FINDINGS: Kidneys: The kidneys demonstrate cortical atrophy. The right kidney measures 10.3 x 5.1 x 7.9 cm and the left kidney measures 11.3 x 6.0 x 7.7 cm. There is no hydronephrosis. No shadowing renal calculi are identified. A 7.3 cm cyst arises from the left kidney. There is no sonographic evidence of contour deforming renal mass lesion. No perinephric fluid is identified. Bladder: The bladder is decompressed and not well assessed. Ureteral jets could not be evaluated. IMPRESSION: 1. The kidneys are atrophic and without hydronephrosis. 2. The bladder was decompressed and not well assessed. Electronically signed by: Ramon Ruggiero M.D. 09/29/2016 11:06 PM Dictated Date/Time: 09/29/2016 11:05 PM
[2016-09-29] MEDS: IMIPENEM-CILASTATIN 250 MG in DEXTROSE 5% 100ML 100 ML IV SCH (23:41)
[2016-09-30] VITALS (61 sets, daily range): BP systolic 66–147; BP diastolic 45–93; PULSE 93–111; TEMP 36.4–36.8; O2SAT 85–99; Ht 177.8 cm; Wt 85.1 kg
[2016-09-30 00:05] LABS: BUN/CREATININE RATIO 17.6 (10-20); CALCIUM 8.1 mg/dl (8.5-10.1); CREATININE 2.4 mg/dl (0.60-1.40); POTASSIUM 4.6 mmol/L (3.5-5.1)
[2016-09-30] MEDS ORDERED: NURSING VERBAL MED ORDER ONE ×3 (00:30→21:00)
[2016-09-30] MEDS ORDERED: ALBUMIN HUMAN 25% 12.5 GM/50 ML VIAL IV ONE (00:45)
[2016-09-30] MEDS ORDERED: SODIUM CHLORIDE 0.9% 500ML 500 ML IV SCH (00:45)
[2016-09-30 01:59] LABS: CREATININE 2.4 mg/dl (0.60-1.40); POTASSIUM 4.7 mmol/L (3.5-5.1)
[2016-09-30 06:04] LABS: INR 3.5 (0.9-1.1)
[2016-09-30 06:18] LABS: HEMATOCRIT 32.2 % (42-52); MEAN CELL VOLUME 95.5 fL (80-100); MEAN CORPUSCULAR HEMOGLOBIN 32.9 pg (25-34); MEAN CORPUSCULAR HGB CONC 34.5 g/dl (32-36); PLATELET COUNT 33 K/uL (130-400); RED BLOOD COUNT 3.37 M/uL (4.7-6.1); WHITE BLOOD COUNT 0.29 K/uL (4.8-10.8)
[2016-09-30] MEDS: IMIPENEM-CILASTATIN 250 MG in DEXTROSE 5% 100ML 100 ML IV SCH ×4 (06:29→23:52)
[2016-09-30] MEDS: HYDROCORTISONE IV 100 MG in SYRINGE 0 ML IV SCH (06:30)
[2016-09-30 06:42] LABS: ECHINOCYTES 2+; LARGE PLATELETS 2+; TOXIC GRANULATION 1+; VACUOLIZATION 1+
[2016-09-30 06:44] LABS: COMPLETE YES; LYMPH ABS # 0.12 K/uL (1.2-3.4); LYMPHOCYTE % 40.2 %; NEUTROPHILS % 48.6 %
[2016-09-30 06:58] LABS: BUN/CREATININE RATIO 19.9 (10-20); CALCIUM 7.5 mg/dl (8.5-10.1); CKMB/CK RATIO 4.3 (0-3.0); CREATININE 2.3 mg/dl (0.60-1.40); PHOSPHORUS 5.2 mg/dl (2.5-4.9); POTASSIUM 4.7 mmol/L (3.5-5.1); THYROID STIMULATING HORMONE 0.624 uIu/ml (0.300-4.500)
[2016-09-30] MEDS ORDERED: PERFLUTREN LIPID MICROSPHERE (DEFINITY) IV ONE (07:41)
[2016-09-30] MEDS: SODIUM CHLORIDE 0.9% 1000ML 1,000 ML IV SCH (07:41)
[2016-09-30] MEDS ORDERED: CeleBREX 200 MG CAP PO SCH (08:00)
--- NOTE | 2016-09-30 08:13 | Medical Consult ---
Consultation Date of Consultation: Sep 30, 2016. Attending Physician: Nathanael Kimbrough M.D. History of Present Illness admitted after not feeling well. low uo after chemo last week. did have g csf but found to have pancytopenia on admission. anc remains low today, wbc slightly increased to 0.29, had fever, isotated yesterday, transferred to ICU, placed on broad spectrum abx, cultures obtained, penidng. ID asked to see pt for imipenem approval. family at bedside. states some nausea and poor po intake since sun. no vomiting. no diarrhea, no abd pain, no cp,cough, sob, wheeze, low uo but no pain. cxr, renal ultrasound, head ct negative. tolerating abx. currently abfebrile, on pressors. all remaining ros reviewed and are negative. Past Medical/Surgical History Medical Problems: (1) Acute renal failure Status: Acute (2) Hyperkalemia Status: Acute (3) Hypotension Status: Acute (4) Severe neutropenia Status: Acute (5) Subtherapeutic international normalized ratio (INR) Status: Acute Family History Cancer Heart disease Hypertension Social History Smoking Status: Never Smoker Marital Status: Housing Status: lives with significant other Occupation Status: retired Allergies Coded Allergies: Amoxicillin (Verified Allergy, Intermediate, HIVES, 06/30/16) unverified; has had them since with no problem Cephalexin (Verified Allergy, Intermediate, HIVES, 06/30/16) has had recent allergy testing; unverified Levofloxacin (Verified Allergy, Intermediate, RED VEIN, FLUSHED, 03/06/14) Valacyclovir (Verified Allergy, Unknown, Unknown rxn, 03/06/14) Azithromycin (Verified Adverse Reaction, Mild, Nausea/Vomiting, 06/30/16) unverified; has taken since without porblems Current Inpatient Medications Current Inpatient Medications Medications (Trade) Dose Ordered Sig/Bisi Route Start Time Stop Time Status Last Admin Dose Admin Atorvastatin Calcium (Lipitor Tab) 80 mg DAILY PO 09/30/16 08:00 10/30/16 08:59 EZETIMIBE (Zetia Tab) 10 mg DAILY PO 09/30/16 08:00 10/30/16 08:59 Multivitamins/ Minerals (Multivitamin W/ Minerals Tab) 1 tab DAILY PO 09/30/16 08:00 10/30/16 08:59 Tramadol HCl (Ultram Tab) 50 mg Q6 PRN PO 09/29/16 11:45 10/29/16 11:44 Acetaminophen (Tylenol Tab) 650 mg Q4H PRN PO 09/29/16 12:15 10/29/16 12:14 09/29/16 17:06 650 MG Al Hydrox/Mg Hydrox/Simethicone (Maalox Max Susp) 15 ml Q4H PRN PO 09/29/16 12:15 10/29/16 12:14 Magnesium Hydroxide (Milk Of Magnesia Susp) 30 ml Q6H PRN PO 09/29/16 12:15 10/29/16 12:14 Polyethylene (Miralax Powder Packet) 17 gm DAILY PRN PO 09/29/16 12:15 10/29/16 12:14 Ondansetron HCl (Zofran Inj) 4 mg Q6H PRN IV 09/29/16 12:15 10/29/16 12:14 09/29/16 14:50 4 MG Sodium Chloride 1,000 ml @ 125 mls/hr Q8H IV 09/29/16 12:15 10/29/16 12:14 09/30/16 07:41 125 MLS/HR Warfarin Sodium (Coumadin Tab) 5 mg MoFr@1600 PO 09/29/16 16:00 10/29/16 15:59 Future Hold 09/29/16 17:07 5 MG Imipenem/ Cilastatin Sodium 250 mg/Dextrose 110 ml @ 100 mls/hr Q6H IV 09/30/16 00:00 10/02/16 00:00 09/30/16 06:29 100 MLS/HR Imipenem/ Cilastatin Sodium (Consult) 1 ea UD PRN N/A 09/29/16 17:30 10/29/16 17:29 Vancomycin HCl (Consult) 1 ea UD N/A 09/29/16 18:35 10/29/16 18:34 Norepinephrine Bitartrate 8 mg/ Dextrose 508 ml @ 0 mls/hr Q0M PRN IV 09/29/16 21:17 10/29/16 21:16 09/29/16 23:40 0 MLS/HR Hydrocortisone Sodium Succinate 75 mg/Syringe 1.5 ml @ 4 mls/min Q8 IV 09/30/16 14:00 09/30/16 23:00 Physical Exam Date Time Temp Pulse Resp B/P (MAP) Pulse Ox O2 Delivery O2 Flow Rate FiO2 09/30/16 06:10 22 117/82 (94) 89 Nasal Cannula 5.0 09/30/16 06:00 21 129/92 (104) 09/30/16 05:50 18 112/82 (92) 88 Nasal Cannula 5.0 09/30/16 05:40 22 121/89 (100) 86 Nasal Cannula 3.0 09/30/16 05:30 20 119/90 (100) 09/30/16 05:20 20 115/81 (92) 88 Nasal Cannula 3.0 09/30/16 05:10 18 104/76 (85) 09/30/16 05:00 19 115/76 (89) 89 Nasal Cannula 3.0 09/30/16 04:50 18 111/79 (90) 09/30/16 04:45 23 90 09/30/16 04:45 23 90 09/30/16 04:40 17 110/83 (92) 09/30/16 04:30 18 108/78 (88) 09/30/16 04:22 20 109/88 (95) 89 09/30/16 04:15 31 88 09/30/16 04:10 20 110/79 (89) 09/30/16 04:00 36.4 18 110/80 (90) 91 Nasal Cannula 3.0 09/30/16 04:00 Nasal Cannula 3.0 09/30/16 03:50 16 105/76 (86) 90 09/30/16 03:45 21 90 09/30/16 03:40 25 117/85 (96) 09/30/16 03:30 20 109/77 (88) 90 09/30/16 03:20 19 105/78 (87) 09/30/16 03:15 18 89 09/30/16 03:10 20 114/82 (93) 09/30/16 03:01 19 115/77 (90) 91 09/30/16 02:50 16 99/68 (78) 09/30/16 02:40 16 88/65 (73) 09/30/16 02:30 17 87/59 (68) 09/30/16 02:21 22 83/64 (70) 93 09/30/16 02:11 19 93/64 (74) 93 09/30/16 02:00 24 88/61 (70) 09/30/16 01:50 18 82/55 (64) 09/30/16 01:45 21 92 09/30/16 01:40 17 75/55 (62) 09/30/16 01:31 19 66/45 (52) 09/30/16 01:30 20 94 09/30/16 01:21 20 82/56 (65) 91 09/30/16 01:15 22 94 09/30/16 01:11 22 100/74 (83) 93 Nasal Cannula 3.0 09/30/16 01:01 18 98/73 (81) 94 Nasal Cannula 3.0 09/30/16 00:30 18 93/71 (78) 92 Nasal Cannula 3.0 09/30/16 00:20 20 96/67 (77) 93 Nasal Cannula 3.0 09/30/16 00:10 16 91/70 (77) 94 Nasal Cannula 3.0 09/30/16 00:00 17 84/61 (69) 94 Nasal Cannula 3.0 09/29/16 23:59 Nasal Cannula 09/29/16 23:51 19 88/61 (70) 93 Nasal Cannula 3.0 09/29/16 23:40 23 85/59 (68) 94 Nasal Cannula 3.0 09/29/16 23:31 18 78/58 (65) 95 Nasal Cannula 3.0 09/29/16 23:20 20 79/57 (64) 91 Nasal Cannula 3.0 09/29/16 23:11 26 91/75 (80) 84 Nasal Cannula 3.0 09/29/16 23:00 36.5 23 79/55 (63) 92 Nasal Cannula 3.0 09/29/16 22:29 37.5 110 20 81/57 (65) 96 Room Air 09/29/16 21:04 82/51 (61) 09/29/16 20:55 36.9 114 22 78/57 (64) 94 Nasal Cannula 3.0 09/29/16 20:42 92 Nasal Cannula 3.0 09/29/16 20:41 36.8 120 22 75/43 (54) 81 Room Air 09/29/16 20:10 36.7 111 20 94/59 (71) 91 Room Air 09/29/16 20:00 Room Air 09/29/16 19:16 36.8 117 22 93/58 (70) 91 Room Air 09/29/16 18:36 99/61 (74) 09/29/16 18:06 36.6 110 24 86/53 (64) 92 Room Air 09/29/16 17:46 79/50 (60) 09/29/16 17:30 114 30 88/58 (68) 92 Room Air 09/29/16 17:00 Room Air 09/29/16 16:45 38.1 111 28 80/53 (62) 93 Room Air 09/29/16 16:42 36.6 112 24 93 09/29/16 15:51 36.6 112 26 75/52 (60) 93 Room Air 09/29/16 13:50 36.4 120 22 101/65 (77) 93 Room Air 09/29/16 13:20 117 16 105/68 09/29/16 12:29 111 16 114/75 09/29/16 12:27 110 09/29/16 11:53 94 Room Air 09/29/16 11:22 103 16 105/66 94 Room Air 09/29/16 11:04 101 16 95/54 105 85/54 09/29/16 10:01 102 09/29/16 09:40 36.9 101 18 92/69 94 Room Air General Appearance: WD/WN, no apparent distress Head: normocephalic, atraumatic Eyes: normal inspection, EOMI Neck: supple Respiratory/Chest: lungs clear, normal breath sounds, no respiratory distress Cardiovascular: regular rate, rhythm, no edema Abdomen/GI: non tender, soft Extremities/Musculoskelatal: normal inspection, no calf tenderness, no pedal edema Neurologic/Psych: alert, oriented x 3 Skin: normal color Laboratory Results Last 24 Hours Test 09/29/16 10:35 09/29/16 10:41 09/29/16 17:50 09/29/16 21:25 White Blood Count 0.15 K/uL 0.14 K/uL Red Blood Count 3.86 M/uL 3.12 M/uL Hemoglobin 12.7 g/dL 10.2 g/dL Hematocrit 36.8 % 29.4 % Mean Corpuscular Volume 95.3 fL 94.2 fL Mean Corpuscular Hemoglobin 32.9 pg 32.7 pg Mean Corpuscular Hemoglobin Concent 34.5 g/dl 34.7 g/dl Platelet Count 53 K/uL 40 K/uL Mean Platelet Volume 10.2 fL 10.4 fL Neutrophils (%) (Auto) 6.7 % 42.9 % Lymphocytes (%) (Auto) 73.3 % 21.4 % Monocytes (%) (Auto) 20.0 % 21.4 % Eosinophils (%) (Auto) 0.0 % 14.3 % Basophils (%) (Auto) 0.0 % 0.0 % Neutrophils # (Auto) 0.01 K/uL 0.06 K/uL Lymphocytes # (Auto) 0.11 K/uL 0.03 K/uL Monocytes # (Auto) 0.03 K/uL 0.03 K/uL Eosinophils # (Auto) 0.00 K/uL 0.02 K/uL Basophils # (Auto) 0.00 K/uL 0.00 K/uL RDW Standard Deviation 44.8 fL 45.1 fL RDW Coefficient of Variation 12.9 % 13.1 % Immature Granulocyte % (Auto) 0.0 % 0.0 % Immature Granulocyte # (Auto) 0.00 K/uL 0.00 K/uL Toxic Granulation 1+ Platelet Estimate DECREASED Large Platelets 1+ Giant Platelets 1+ Prothrombin Time 21.0 SECONDS Prothromb Time International Ratio 1.9 Activated Partial Thromboplast Time 44.3 SECONDS Partial Thromboplastin Ratio 1.7 Sodium Level 133 mmol/L 132 mmol/L 132 mmol/L Potassium Level 5.4 mmol/L 4.7 mmol/L 4.6 mmol/L Chloride Level 101 mmol/L 101 mmol/L 102 mmol/L Carbon Dioxide Level 23 mmol/L 20 mmol/L 18 mmol/L Anion Gap 9.0 mmol/L 11.0 mmol/L 12.0 mmol/L Blood Urea Nitrogen 40 mg/dl 40 mg/dl 42 mg/dl Creatinine 2.10 mg/dl 2.40 mg/dl 2.40 mg/dl Est Creatinine Clear Calc Drug Dose 28.0 ml/min 24.5 ml/min 24.5 ml/min Estimated GFR () 33.0 28.1 28.1 Estimated GFR (Non- 28.5 24.2 24.2 BUN/Creatinine Ratio 18.9 16.8 17.6 Random Glucose 93 mg/dl 81 mg/dl 81 mg/dl Calcium Level 9.2 mg/dl 8.3 mg/dl 8.1 mg/dl Magnesium Level 2.1 mg/dl Total Bilirubin 1.1 mg/dl Direct Bilirubin 0.4 mg/dl Aspartate Amino Transf (AST/SGOT) 22 U/L Alanine Aminotransferase (ALT/SGPT) 21 U/L Alkaline Phosphatase 47 U/L Total Protein 6.6 gm/dl Albumin 2.9 gm/dl Bedside Troponin I < 0.030 ng/ml Troponin I 0.039 ng/ml 0.043 ng/ml Chemistry Specimen Hemolysis Nucleated RBC Absolute Count (auto) 0.05 K/uL Nucleated Red Blood Cells % 33.7 % Red Blood Cell Morphology Unremarkable Total Creatine Kinase 152 U/L Creatine Kinase MB 1.0 ng/ml Creatine Kinase MB Ratio 0.7 Test 09/29/16 21:27 09/29/16 21:34 09/29/16 22:37 09/30/16 00:53 Blood Gas Sample Site R Brachial R Radial Bedside Blood Gas pH (LAB) 7.32 7.39 Bedside Blood Gas pCO2 (LAB) 36 mmHg 28 mmHg Bedside Blood Gas pO2 (LAB) < 32 mmHg 75 mmHg Bedside Blood Gas HCO3 (LAB) 19 meq/L 17 meq/L Bedside Blood Gas Total CO2 20 mEq/l 17 mEq/l Bedside Blood Gas Base Excess (LAB) -8.0 meq/L -8.0 meq/L Bedside Blood Gas O2 Saturation 29.0 % 95.0 % Marko Test Pass Pass Oxygen Delivery Device Cannula Cannula Lactic Acid Level 2.6 mmol/L Sodium Level 134 mmol/L Potassium Level 4.7 mmol/L Chloride Level 105 mmol/L Carbon Dioxide Level 17 mmol/L Anion Gap 12.0 mmol/L Blood Urea Nitrogen 46 mg/dl Creatinine 2.40 mg/dl Est Creatinine Clear Calc Drug Dose 24.5 ml/min Estimated GFR () 28.1 Estimated GFR (Non- 24.2 BUN/Creatinine Ratio 19.0 Random Glucose 84 mg/dl Calcium Level 8.0 mg/dl Troponin I 0.160 ng/ml Test 09/30/16 05:40 White Blood Count 0.29 K/uL Red Blood Count 3.37 M/uL Hemoglobin 11.1 g/dL Hematocrit 32.2 % Mean Corpuscular Volume 95.5 fL Mean Corpuscular Hemoglobin 32.9 pg Mean Corpuscular Hemoglobin Concent 34.5 g/dl Platelet Count 33 K/uL Mean Platelet Volume 11.0 fL RDW Standard Deviation 46.6 fL RDW Coefficient of Variation 13.3 % Neutrophils % (Manual) 48.6 % Lymphocytes % (Manual) 40.2 % Monocytes % (Manual) 11.2 % Neutrophils # (Manual) 0.14 K/uL Total Absolute Neutrophils 0.14 K/uL Lymphocytes # (Manual) 0.12 K/uL Total Absolute Lymphocytes 0.12 K/uL Monocytes # (Manual) 0.03 K/uL Toxic Granulation 1+ Toxic Vacuolation 1+ Large Platelets 2+ Echinocytes 2+ Prothrombin Time 39.0 SECONDS Prothromb Time International Ratio 3.5 Sodium Level 134 mmol/L Potassium Level 4.7 mmol/L Chloride Level 106 mmol/L Carbon Dioxide Level 18 mmol/L Anion Gap 10.0 mmol/L Blood Urea Nitrogen 46 mg/dl Creatinine 2.30 mg/dl Est Creatinine Clear Calc Drug Dose 28.9 ml/min Estimated GFR () 29.5 Estimated GFR (Non- 25.5 BUN/Creatinine Ratio 19.9 Random Glucose 103 mg/dl Lactic Acid Level 2.0 mmol/L Calcium Level 7.5 mg/dl Phosphorus Level 5.2 mg/dl Magnesium Level 2.0 mg/dl Total Bilirubin 1.2 mg/dl Direct Bilirubin 0.6 mg/dl Aspartate Amino Transf (AST/SGOT) 71 U/L Alanine Aminotransferase (ALT/SGPT) 38 U/L Alkaline Phosphatase 38 U/L Total Creatine Kinase 203 U/L Creatine Kinase MB 8.8 ng/ml Creatine Kinase MB Ratio 4.3 Troponin I 0.988 ng/ml Total Protein 6.1 gm/dl Albumin 2.9 gm/dl Procalcitonin 96.03 ng/ml Thyroid Stimulating Hormone (TSH) 0.624 uIu/ml Random Vancomycin Level 17.5 mcg/ml Assessment & Plan (1) Neutropenic fever Assessment & Plan: continue broad abx, follow cultures. consider g-csf as well.
--- NOTE | 2016-09-30 08:19 | DIAGNOSTIC IMAGING REPORT ---
CHEST ONE VIEW PORTABLE CLINICAL HISTORY: Hypoxia. COMPARISON STUDY: Chest radiograph September 29, [address] August 14, 2016. FINDINGS: There is no pneumothorax or pleural effusion. 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 Lung volumes are slightly diminished. There are calcified mediastinal lymph nodes. There is been interval development of interstitial thickening and asymmetric right lung airspace opacity. There is mild left basilar opacity. IMPRESSION: Interval development of bilateral airspace opacities and interstitial thickening. In part, the findings could be related to a hypoventilatory study but raise the possibility of an infectious process or pulmonary edema. Electronically signed by: Trell Moseley M.D. 09/30/2016 8:17 AM Dictated Date/Time: 09/30/2016 8:14 AM
[2016-09-30] MEDS: ATORVASTATIN 40 MG TAB PO SCH ×2 (09:00→09:14)
[2016-09-30] MEDS: EZETIMIBE 10MG TAB PO SCH ×2 (09:00→09:14)
[2016-09-30] MEDS: CEROVITE ADV FORMULA TAB PO SCH ×2 (09:00→09:14)
[2016-09-30] MEDS ORDERED: FUROSEMIDE 40 MG/4 ML VIAL IV STA (09:46)
[2016-09-30 10:28] LABS: ISTAT ALLEN TEST Pass; ISTAT ARTERIAL BLOOD GAS HCO3 15 meq/L (19-24); ISTAT ARTERIAL BLOOD GAS PCO2 29 mmHg (35-46); ISTAT ARTERIAL BLOOD GAS PO2 51 mmHg (80-95); ISTAT ARTERIAL BLOOD GAS pH 7.32 (7.35-7.45); ISTAT CARBON DIOXIDE 16 mEq/l (24-31); ISTAT DELIVERY SYSTEM SimpleMask; ISTAT SITE R Radial
--- NOTE | 2016-09-30 12:06 | Pharmacy Progress Note ---
Pharmacy Abx Dose Progress Nt Date of Service Sep 30, 2016. Pharmacy Dosing Scope The patient is currently receiving the following antimicrobial agents per Pharmacy consult: IV Vanco PRN and Primaxin Objective Height (Feet): 5 Height (Inches): 10.00 Weight (Kilograms): 97.000 Vital Signs (Past 12Hrs) Vital Signs Past 12 Hours Date Time Temp Pulse Resp B/P (MAP) Pulse Ox O2 Delivery O2 Flow Rate FiO2 09/30/16 10:30 103 98 100 09/30/16 08:00 95 21 108/83 (91) 89 Oxymask 11.0 09/30/16 06:10 22 117/82 (94) 89 Nasal Cannula 5.0 09/30/16 06:00 21 129/92 (104) 09/30/16 05:50 18 112/82 (92) 88 Nasal Cannula 5.0 09/30/16 05:40 22 121/89 (100) 86 Nasal Cannula 3.0 09/30/16 05:30 20 119/90 (100) 09/30/16 05:20 20 115/81 (92) 88 Nasal Cannula 3.0 09/30/16 05:10 18 104/76 (85) 09/30/16 05:00 19 115/76 (89) 89 Nasal Cannula 3.0 09/30/16 04:50 18 111/79 (90) 09/30/16 04:45 23 90 09/30/16 04:45 23 90 09/30/16 04:40 17 110/83 (92) 09/30/16 04:30 18 108/78 (88) 09/30/16 04:22 20 109/88 (95) 89 09/30/16 04:15 31 88 09/30/16 04:10 20 110/79 (89) 09/30/16 04:00 36.4 18 110/80 (90) 91 Nasal Cannula 3.0 09/30/16 04:00 Nasal Cannula 3.0 09/30/16 03:50 16 105/76 (86) 90 09/30/16 03:45 21 90 09/30/16 03:40 25 117/85 (96) 09/30/16 03:30 20 109/77 (88) 90 09/30/16 03:20 19 105/78 (87) 09/30/16 03:15 18 89 09/30/16 03:10 20 114/82 (93) 09/30/16 03:01 19 115/77 (90) 91 09/30/16 02:50 16 99/68 (78) 09/30/16 02:40 16 88/65 (73) 09/30/16 02:30 17 87/59 (68) 09/30/16 02:21 22 83/64 (70) 93 09/30/16 02:11 19 93/64 (74) 93 09/30/16 02:00 24 88/61 (70) 09/30/16 01:50 18 82/55 (64) 09/30/16 01:45 21 92 09/30/16 01:40 17 75/55 (62) 09/30/16 01:31 19 66/45 (52) 09/30/16 01:30 20 94 09/30/16 01:21 20 82/56 (65) 91 09/30/16 01:15 22 94 09/30/16 01:11 22 100/74 (83) 93 Nasal Cannula 3.0 09/30/16 01:01 18 98/73 (81) 94 Nasal Cannula 3.0 09/30/16 00:30 18 93/71 (78) 92 Nasal Cannula 3.0 09/30/16 00:20 20 96/67 (77) 93 Nasal Cannula 3.0 09/30/16 00:10 16 91/70 (77) 94 Nasal Cannula 3.0 09/30/16 00:00 17 84/61 (69) 94 Nasal Cannula 3.0 09/29/16 23:59 Nasal Cannula Lab Results (24Hrs) Laboratory Tests (24 Hours) Test 09/29/16 21:25 09/30/16 05:40 White Blood Count 0.14 K/uL (4.8-10.8) *L 0.29 K/uL (4.8-10.8) *L Red Blood Count 3.12 M/uL (4.7-6.1) L 3.37 M/uL (4.7-6.1) L Hemoglobin 10.2 g/dL (14.0-18.0) L 11.1 g/dL (14.0-18.0) L Hematocrit 29.4 % (42-52) L 32.2 % (42-52) L Mean Corpuscular Volume 94.2 fL (80-100) 95.5 fL (80-100) Mean Corpuscular Hemoglobin 32.7 pg (25-34) 32.9 pg (25-34) Mean Corpuscular Hemoglobin Concent 34.7 g/dl (32-36) 34.5 g/dl (32-36) Platelet Count 40 K/uL (130-400) L 33 K/uL (130-400) L Mean Platelet Volume 10.4 fL (7.4-10.4) 11.0 fL (7.4-10.4) H Neutrophils (%) (Auto) 42.9 % Lymphocytes (%) (Auto) 21.4 % Monocytes (%) (Auto) 21.4 % Eosinophils (%) (Auto) 14.3 % Basophils (%) (Auto) 0.0 % Neutrophils # (Auto) 0.06 K/uL (1.4-6.5) *L Lymphocytes # (Auto) 0.03 K/uL (1.2-3.4) L Monocytes # (Auto) 0.03 K/uL (0.11-0.59) L Eosinophils # (Auto) 0.02 K/uL (0-0.5) Basophils # (Auto) 0.00 K/uL (0-0.2) Lactic Acid Level 2.0 mmol/L (0.4-2.0) Procalcitonin 96.03 ng/ml (0-0.5) H Total Creatine Kinase 203 U/L (39-308) Micro Results Date/Time Source Procedure Growth Status 09/29/16 17:58 Blood Blood Culture - Preliminary Gram Negative Bacilli Resulted 09/29/16 17:50 Blood Blood Culture - Preliminary Gram Negative Bacilli Resulted 09/30/16 07:11 Urine , Clean Catch Urine Culture Pending Received Risk Factors for Resistance * Hospitalization for 48 hours or more within the past 90 days * Immunocompromised: leukopenia Assessment & Plan 09/30: Mr. Dalton p/w neutropenic fever and now growing GNRs in 2/2 BC. UC is pending. It doesn't appear that he has a h/o MDRO. However, due to his recent hospital admission and immunocompromised state I feel keeping him on broad spectrum antibx is prudent. Fever has since resolved. His renal fxn is elevated compared to his baseline. Current pt population p' kinetics: t1/2=24hrs, ke=.0285, Vd=0.6. He received a Vanco dose of 1750mg (21mg/kg) @1942 on 09/29 which achieved a peak of roughly 31mcg/mL. Random lvl this AM was 17.5mcg/mL. Which suggests he may be eliminating more Vanco than his NATALIIA/renal fxn suggests. I/O currently not being documented. Will receive Vanco 750mg (~9mg/kg) x1 @ 1400 today to ensure he remains therapeutic. Will check random lvl 10/01 @ 0444. Goal trough 15- 20mcg/mL for bacteremia. Primaxin: If renal fxn increases to eCrCl >30cc/min may need to increase Primaxin to 300mg q6h 10/01: Random lvl this AM slightly subtherapeutic at 14.8mcg/mL. Will increase dose to 1250mg(15mg/kg) daily. His renal fxn has improved closer to his baseline. Pt population p'kinetics: t1/2=20hrs, ke=[id number]. Trough ordered for 10/03 @ 0930. BC growing GNRs w sensitivities still pending. Repeat BC are pending. Will continue with MRSA coverage for now due to the critical nature of this patient and repeat BC still pending. Depending on pt improvement may consider d/c'ing Vanco in the future if c/s's not growing gram+/MRSA pathogens? Pharmacy will continue to follow and will adjust dose/frequency as necessary. Thank you.
[2016-09-30] MEDS ORDERED: DEXTROSE 5% IV ONE (13:00)
[2016-09-30] MEDS ORDERED: GENTAMICIN IV ONE (13:00)
[2016-09-30 13:47] LABS: BUN/CREATININE RATIO 19.6 (10-20); CALCIUM 7.7 mg/dl (8.5-10.1); CREATININE 2.3 mg/dl (0.60-1.40); POTASSIUM 4.4 mmol/L (3.5-5.1)
[2016-09-30] MEDS ORDERED: HYDROCORTISONE IV 50 MG in SYRINGE 0 ML IV SCH (14:00)
[2016-09-30] MEDS ORDERED: VANCOMYCIN INJ 750 MG in SODIUM CHLORIDE 0.9% 250ML 250 ML IV ONE (14:00)
[2016-09-30] MEDS ORDERED: HYDROCORTISONE IV 75 MG in SYRINGE 0 ML IV SCH (14:00)
--- NOTE | 2016-09-30 14:00 | Progress Note ---
Progress Note Date of Service Sep 30, 2016. 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 This afternoon his blood cultures have come back positive for gram negatives bacilli in both sets. He received 1 dose of gentamicin. He required low-dose Levophed overnight which has been weaned off. A Burdick catheter was finally able to be placed today. He became hypoxemic this morning and is now on BiPAP 12/7 100% with an oxygen saturation of 100%. He is comfortable out of bed sitting in a chair while on the BiPAP. He received Lasix 20 mg IV 1. Please also note that his intake and output for the past 24 hours may not be accurate. The only documentation for input and output was done once he was in the intensive care unit. He denies pain and is feeling better. His is pleased with his progress. Vital signs: Maximum temperature 38.1 heart rate 105-112 respiratory rate 21-30 oxygen saturation 100% blood pressure 75-129/70 temp 90. Fluid balance overnight +1.6 L. Exam: General: He is awake and alert, sitting in a chair breathing comfortably on the BiPAP. Lungs: Bibasilar rales no rhonchi or wheezes Heart: Tachycardic, regular, no murmurs. Abdomen: Soft, nondistended, nontender, active bowel sounds. Extremities: The right leg is slightly larger than the left. There is trace pretibial edema bilaterally. Neuro: He is oriented to person place and year. He follows commands and moves all 4 extremities but is still profoundly weak throughout. Medications: Acetaminophen, Maalox, Lipitor, Zetia, gentamicin 1 dose, hydrocortisone, imipenem day 2, milk of magnesia, multivitamin, Zofran, MiraLAX , normal saline 75 mL per hour, tramadol, vancomycin day 2, warfarin. Portable chest x-ray from this morning shows bilateral airspace opacities concerning for infection or pulmonary edema. Renal ultrasound from last night shows atrophic kidneys without hydronephrosis, bladder was decompressed and not well assessed. 09/30/16 05:40 Red Blood Count 3.37, Mean Corpuscular Volume 95.5, Mean Corpuscular Hemoglobin 32.9, Mean Corpuscular Hemoglobin Concent 34.5, Mean Platelet Volume 11.0 Test 09/29/16 17:50 09/29/16 21:25 09/30/16 05:40 09/30/16 10:15 Chemistry Specimen Hemolysis Immature Granulocyte % (Auto) 0.0 % White Blood Count 0.14 K/uL (4.8-10.8) 0.29 K/uL (4.8-10.8) Red Blood Count 3.12 M/uL (4.7-6.1) 3.37 M/uL (4.7-6.1) Hemoglobin 10.2 g/dL (14.0-18.0) 11.1 g/dL (14.0-18.0) Hematocrit 29.4 % (42-52) 32.2 % (42-52) Mean Corpuscular Volume 94.2 fL (80-100) 95.5 fL (80-100) Mean Corpuscular Hemoglobin 32.7 pg (25-34) 32.9 pg (25-34) Mean Corpuscular Hemoglobin Concent 34.7 g/dl (32-36) 34.5 g/dl (32-36) Platelet Count 40 K/uL (130-400) 33 K/uL (130-400) Mean Platelet Volume 10.4 fL (7.4-10.4) 11.0 fL (7.4-10.4) Neutrophils (%) (Auto) 42.9 % Lymphocytes (%) (Auto) 21.4 % Monocytes (%) (Auto) 21.4 % Eosinophils (%) (Auto) 14.3 % Basophils (%) (Auto) 0.0 % Neutrophils # (Auto) 0.06 K/uL (1.4-6.5) Lymphocytes # (Auto) 0.03 K/uL (1.2-3.4) Monocytes # (Auto) 0.03 K/uL (0.11-0.59) Eosinophils # (Auto) 0.02 K/uL (0-0.5) Basophils # (Auto) 0.00 K/uL (0-0.2) Immature Granulocyte # (Auto) 0.00 K/uL (0.00-0.02) Nucleated RBC Absolute Count (auto) 0.00 K/uL (0-0) Nucleated Red Blood Cells % 0.0 % Red Blood Cell Morphology Unremarkable RDW Standard Deviation 46.6 fL (36.4-46.3) RDW Coefficient of Variation 13.3 % (11.5-14.5) Neutrophils % (Manual) 48.6 % Lymphocytes % (Manual) 40.2 % Monocytes % (Manual) 11.2 % Neutrophils # (Manual) 0.14 K/uL (1.4-6.5) Total Absolute Neutrophils 0.14 K/uL (1.4-6.5) Lymphocytes # (Manual) 0.12 K/uL (1.2-3.4) Total Absolute Lymphocytes 0.12 K/uL (1.2-3.4) Monocytes # (Manual) 0.03 K/uL (0.11-0.59) Toxic Granulation 1+ Toxic Vacuolation 1+ Large Platelets 2+ Echinocytes 2+ Prothrombin Time 39.0 SECONDS (9.0-12.0) Prothromb Time International Ratio 3.5 (0.9-1.1) Est Creatinine Clear Calc Drug Dose 28.9 ml/min Lactic Acid Level 2.0 mmol/L (0.4-2.0) Phosphorus Level 5.2 mg/dl (2.5-4.9) Magnesium Level 2.0 mg/dl (1.8-2.4) Total Bilirubin 1.2 mg/dl (0.2-1) Direct Bilirubin 0.6 mg/dl (0-0.2) Aspartate Amino Transf (AST/SGOT) 71 U/L (15-37) Alanine Aminotransferase (ALT/SGPT) 38 U/L (12-78) Alkaline Phosphatase 38 U/L (45-117) Total Protein 6.1 gm/dl (6.4-8.2) Albumin 2.9 gm/dl (3.4-5.0) Procalcitonin 96.03 ng/ml (0-0.5) Thyroid Stimulating Hormone (TSH) 0.624 uIu/ml (0.300-4.500) Random Cortisol > 150.00 mcg/dl Random Vancomycin Level 17.5 mcg/ml Blood Gas Sample Site R Radial Bedside Blood Gas pH (LAB) 7.32 (7.35-7.45) Bedside Blood Gas pCO2 (LAB) 29 mmHg (35-46) Bedside Blood Gas pO2 (LAB) 51 mmHg (80-95) Bedside Blood Gas HCO3 (LAB) 15 meq/L (19-24) Bedside Blood Gas Total CO2 16 mEq/l (24-31) Bedside Blood Gas Base Excess (LAB) -11.0 meq/L (-9-1.8) Bedside Blood Gas O2 Saturation 84.0 % (90-95) Marko Test Pass Oxygen Delivery Device SimpleMask Test 09/30/16 11:36 09/30/16 13:16 Bedside Glucose 107 mg/dl (70-99) Creatine Kinase MB Ratio (0-3.0) Impression: 1. Gram-negative bacteremia in this neutropenic patient who is status post chemotherapy for metastatic prostate cancer 9 days ago. No definitive etiology identified. His abdominal exam is benign and he has not had any recent central lines. He is developing pulmonary infiltrates which may be secondary to sepsis and not the primary problem. This could also be secondary to translocation from the gut. 2. Septic shock, receiving imipenem and vancomycin and he has had one dose of gentamicin. He was on low-dose Levophed for several hours last night and that has been weaned off. Pro calcitonin 96.03 3. Neutropenia, improved 4. Thrombocytopenia, worse today. No signs of acute bleeding. His INR is also 3.5 and Coumadin is being held. 5. Acute hypoxemic respiratory failure, possible acute lung injury secondary to #2. 6. Metastatic prostate cancer 7. Acute kidney injury on chronic kidney disease, creatinine has not worsened over the past 24 hours. Potassium improved. 8. Acute metabolic encephalopathy, improved 9. Profound weakness 10. History of right lower extremity DVT diagnosed in May of this year. Supra therapeutic INR at 3.5. Coumadin being held. 11. Metastatic prostate cancer diagnosed in 2004 Plan: Infectious disease: Continue imipenem, vancomycin and gentamicin. Follow cultures and consider right upper quadrant ultrasound but his abdominal exam is completely benign. Repeat blood cultures tomorrow. Follow Pro calcitonin and lactic acid. Pulmonary: He has received Lasix 20 mg IV and this had a brisk response. Wean FiO2 on the BiPAP and consider bronchodilators. Cardiovascular: Await echocardiogram report. Hold any antihypertensives. Renal: Consider stopping IV fluids. Appropriately adjust medications and avoid nephrotoxins. Replete electro lites when necessary. GI: Clears for now and consider nutritional supplements. Hopefully he will be able to have breaks off the BiPAP mask. Heme: Consult hematology/oncology regarding whether or not another dose of Neulasta or Neupogen is reasonable. Watch for signs of bleeding and hold Coumadin. Endocrine: Decrease hydrocortisone. Eventually he can go back to his prednisone 10 mg daily. Neuro: Avoid sedatives, physical therapy and occupational therapy once his respiratory status improves. His signed a consent for PICC line and triple-lumen catheter. At this point his peripheral access is adequate and I would like to see what happens with his creatinine. I suspect he will be on IV antibiotics for a prolonged course and will need a PICC line eventually. I updated his at the bedside and questions were answered. Critical care time 60 minutes
[2016-09-30 14:26] LABS: CKMB/CK RATIO 5.8 (0-3.0)
--- NOTE | 2016-09-30 14:56 | Family Medicine Progress Note ---
Progress Note Date of Service Sep 30, 2016. Subjective Pt evaluation today including: conversation w/ patient, conversation w/ family , physical exam, chart review, lab review, review of studies, review of inpatient medication list Pain: pain improved PO Intake: Per nurse, Voiding: jose catheter in place Patient got a jose placed today and got Lasix and is maintaining urine output. He has been weened off Levophed. This AM, at encounter pat still wearing oxymask however pulse ox was 89 on % on 5L Constitutional: No fever, No chills Respiratory: + shortness of breath, No wheezing Cardiovascular: No chest pain, No claudication Abdomen: No pain, No nausea, No vomiting Male : + problem reported (jose in place) Neurologic: No numbness/tingling Skin: No rash, No itch Medications Current Inpatient Medications Medications (Trade) Dose Ordered Sig/Bisi Route Start Time Stop Time Status Last Admin Dose Admin Atorvastatin Calcium (Lipitor Tab) 80 mg DAILY PO 09/30/16 08:00 10/30/16 08:59 EZETIMIBE (Zetia Tab) 10 mg DAILY PO 09/30/16 08:00 10/30/16 08:59 Multivitamins/ Minerals (Multivitamin W/ Minerals Tab) 1 tab DAILY PO 09/30/16 08:00 10/30/16 08:59 Tramadol HCl (Ultram Tab) 50 mg Q6 PRN PO 09/29/16 11:45 10/29/16 11:44 Acetaminophen (Tylenol Tab) 650 mg Q4H PRN PO 09/29/16 12:15 10/29/16 12:14 09/29/16 17:06 650 MG Al Hydrox/Mg Hydrox/Simethicone (Maalox Max Susp) 15 ml Q4H PRN PO 09/29/16 12:15 10/29/16 12:14 Magnesium Hydroxide (Milk Of Magnesia Susp) 30 ml Q6H PRN PO 09/29/16 12:15 10/29/16 12:14 Polyethylene (Miralax Powder Packet) 17 gm DAILY PRN PO 09/29/16 12:15 10/29/16 12:14 Ondansetron HCl (Zofran Inj) 4 mg Q6H PRN IV 09/29/16 12:15 10/29/16 12:14 09/29/16 14:50 4 MG Sodium Chloride 1,000 ml @ 125 mls/hr Q8H IV 09/29/16 12:15 10/29/16 12:14 09/30/16 07:41 125 MLS/HR Warfarin Sodium (Coumadin Tab) 5 mg MoFr@1600 PO 09/29/16 16:00 10/29/16 15:59 Future Hold 09/29/16 17:07 5 MG Imipenem/ Cilastatin Sodium 250 mg/Dextrose 110 ml @ 100 mls/hr Q6H IV 09/30/16 00:00 10/07/16 00:00 09/30/16 12:33 100 MLS/HR Imipenem/ Cilastatin Sodium (Consult) 1 ea UD PRN N/A 09/29/16 17:30 10/29/16 17:29 Vancomycin HCl (Consult) 1 ea UD N/A 09/29/16 18:35 10/29/16 18:34 Norepinephrine Bitartrate 8 mg/ Dextrose 508 ml @ 0 mls/hr Q0M PRN IV 09/29/16 21:17 10/29/16 21:16 09/29/16 23:40 0 MLS/HR Hydrocortisone Sodium Succinate 50 mg/Syringe 1 ml @ 4 mls/min Q12H IV 09/30/16 14:00 09/30/16 23:00 09/30/16 14:06 4 MLS/MIN Vancomycin HCl 750 mg/Sodium Chloride 265 ml @ 125 mls/hr 1400 ONCE IV 09/30/16 14:00 09/30/16 16:07 09/30/16 14:06 125 MLS/HR Objective Vital Signs Date Time Temp Pulse Resp B/P (MAP) Pulse Ox O2 Delivery O2 Flow Rate FiO2 09/30/16 14:43 99 99 60 09/30/16 14:00 36.4 93 16 89/62 (71) 97 BiPAP 50 09/30/16 12:00 BiPAP 09/30/16 12:00 36.6 96 30 120/85 (97) 99 BiPAP 09/30/16 10:30 103 98 100 09/30/16 10:00 36.6 104 30 147/93 (111) 85 Oxymask 11.0 09/30/16 08:00 Oxymask 11.0 09/30/16 08:00 95 21 108/83 (91) 89 Oxymask 11.0 09/30/16 06:10 22 117/82 (94) 89 Nasal Cannula 5.0 09/30/16 06:00 21 129/92 (104) 09/30/16 05:50 18 112/82 (92) 88 Nasal Cannula 5.0 09/30/16 05:40 22 121/89 (100) 86 Nasal Cannula 3.0 09/30/16 05:30 20 119/90 (100) 09/30/16 05:20 20 115/81 (92) 88 Nasal Cannula 3.0 09/30/16 05:10 18 104/76 (85) 09/30/16 05:00 19 115/76 (89) 89 Nasal Cannula 3.0 09/30/16 04:50 18 111/79 (90) 09/30/16 04:45 23 90 09/30/16 04:45 23 90 09/30/16 04:40 17 110/83 (92) 09/30/16 04:30 18 108/78 (88) 09/30/16 04:22 20 109/88 (95) 89 09/30/16 04:15 31 88 09/30/16 04:10 20 110/79 (89) 09/30/16 04:00 36.4 18 110/80 (90) 91 Nasal Cannula 3.0 09/30/16 04:00 Nasal Cannula 3.0 09/30/16 03:50 16 105/76 (86) 90 09/30/16 03:45 21 90 09/30/16 03:40 25 117/85 (96) 09/30/16 03:30 20 109/77 (88) 90 09/30/16 03:20 19 105/78 (87) 09/30/16 03:15 18 89 09/30/16 03:10 20 114/82 (93) 09/30/16 03:01 19 115/77 (90) 91 09/30/16 02:50 16 99/68 (78) 09/30/16 02:40 16 88/65 (73) 09/30/16 02:30 17 87/59 (68) 09/30/16 02:21 22 83/64 (70) 93 09/30/16 02:11 19 93/64 (74) 93 09/30/16 02:00 24 88/61 (70) 09/30/16 01:50 18 82/55 (64) 09/30/16 01:45 21 92 09/30/16 01:40 17 75/55 (62) 09/30/16 01:31 19 66/45 (52) 09/30/16 01:30 20 94 09/30/16 01:21 20 82/56 (65) 91 09/30/16 01:15 22 94 09/30/16 01:11 22 100/74 (83) 93 Nasal Cannula 3.0 09/30/16 01:01 18 98/73 (81) 94 Nasal Cannula 3.0 09/30/16 00:30 18 93/71 (78) 92 Nasal Cannula 3.0 09/30/16 00:20 20 96/67 (77) 93 Nasal Cannula 3.0 09/30/16 00:10 16 91/70 (77) 94 Nasal Cannula 3.0 09/30/16 00:00 17 84/61 (69) 94 Nasal Cannula 3.0 09/29/16 23:59 Nasal Cannula 09/29/16 23:51 19 88/61 (70) 93 Nasal Cannula 3.0 09/29/16 23:40 23 85/59 (68) 94 Nasal Cannula 3.0 09/29/16 23:31 18 78/58 (65) 95 Nasal Cannula 3.0 09/29/16 23:20 20 79/57 (64) 91 Nasal Cannula 3.0 09/29/16 23:11 26 91/75 (80) 84 Nasal Cannula 3.0 09/29/16 23:00 36.5 23 79/55 (63) 92 Nasal Cannula 3.0 09/29/16 22:29 37.5 110 20 81/57 (65) 96 Room Air 09/29/16 21:04 82/51 (61) 09/29/16 20:55 36.9 114 22 78/57 (64) 94 Nasal Cannula 3.0 09/29/16 20:42 92 Nasal Cannula 3.0 09/29/16 20:41 36.8 120 22 75/43 (54) 81 Room Air 09/29/16 20:10 36.7 111 20 94/59 (71) 91 Room Air 09/29/16 20:00 Room Air 09/29/16 19:16 36.8 117 22 93/58 (70) 91 Room Air 09/29/16 18:36 99/61 (74) 09/29/16 18:06 36.6 110 24 86/53 (64) 92 Room Air 09/29/16 17:46 79/50 (60) 09/29/16 17:30 114 30 88/58 (68) 92 Room Air 09/29/16 17:00 Room Air 09/29/16 16:45 38.1 111 28 80/53 (62) 93 Room Air 09/29/16 16:42 36.6 112 24 93 09/29/16 15:51 36.6 112 26 75/52 (60) 93 Room Air Physical Exam General Appearance: WD/WN, no apparent distress Eyes: PERRL, EOMI Neck: supple, no carotid bruits, trachea midline Respiratory/Chest: no respiratory distress, no accessory muscle use, + rales ( khang basilar) Cardiovascular: regular rate, rhythm, no edema, no murmur Abdomen: normal bowel sounds, non tender, soft Extremities: no pedal edema, no calf tenderness Neurologic/Psychiatric: alert, normal mood/affect Skin: normal color, warm/dry Laboratory Results Results Past 24 Hours Test 09/29/16 17:50 09/29/16 21:25 09/29/16 21:27 09/29/16 21:34 Range/Units Sodium Level 132 132 136-145 mmol/L Potassium Level 4.7 4.6 3.5-5.1 mmol/L Chloride Level 101 102 98-107 mmol/L Carbon Dioxide Level 20 18 21-32 mmol/L Anion Gap 11.0 12.0 3-11 mmol/L Blood Urea Nitrogen 40 42 7-18 mg/dl Creatinine 2.40 2.40 0.60-1.40 mg/dl Est Creatinine Clear Calc Drug Dose 24.5 24.5 ml/min Estimated GFR () 28.1 28.1 Estimated GFR (Non- 24.2 24.2 BUN/Creatinine Ratio 16.8 17.6 10-20 Random Glucose 81 81 70-99 mg/dl Calcium Level 8.3 8.1 8.5-10.1 mg/dl Troponin I 0.039 0.043 0-0.045 ng/ml Chemistry Specimen Hemolysis White Blood Count 0.14 4.8-10.8 K/uL Red Blood Count 3.12 4.7-6.1 M/uL Hemoglobin 10.2 14.0-18.0 g/dL Hematocrit 29.4 42-52 % Mean Corpuscular Volume 94.2 80-100 fL Mean Corpuscular Hemoglobin 32.7 25-34 pg Mean Corpuscular Hemoglobin Concent 34.7 32-36 g/dl Platelet Count 40 130-400 K/uL Mean Platelet Volume 10.4 7.4-10.4 fL Neutrophils (%) (Auto) 42.9 % Lymphocytes (%) (Auto) 21.4 % Monocytes (%) (Auto) 21.4 % Eosinophils (%) (Auto) 14.3 % Basophils (%) (Auto) 0.0 % Neutrophils # (Auto) 0.06 1.4-6.5 K/uL Lymphocytes # (Auto) 0.03 1.2-3.4 K/uL Monocytes # (Auto) 0.03 0.11-0.59 K/uL Eosinophils # (Auto) 0.02 0-0.5 K/uL Basophils # (Auto) 0.00 0-0.2 K/uL RDW Standard Deviation 45.1 36.4-46.3 fL RDW Coefficient of Variation 13.1 11.5-14.5 % Immature Granulocyte % (Auto) 0.0 % Immature Granulocyte # (Auto) 0.00 0.00-0.02 K/uL Nucleated RBC Absolute Count (auto) 0.00 0-0 K/uL Nucleated Red Blood Cells % 0.0 % Red Blood Cell Morphology Unremarkable Total Creatine Kinase 152 39-308 U/L Creatine Kinase MB 1.0 0.5-3.6 ng/ml Creatine Kinase MB Ratio 0.7 0-3.0 Blood Gas Sample Site R Brachial R Radial Bedside Blood Gas pH (LAB) 7.32 7.39 7.35-7.45 Bedside Blood Gas pCO2 (LAB) 36 28 35-46 mmHg Bedside Blood Gas pO2 (LAB) < 32 75 80-95 mmHg Bedside Blood Gas HCO3 (LAB) 19 17 19-24 meq/L Bedside Blood Gas Total CO2 20 17 24-31 mEq/l Bedside Blood Gas Base Excess (LAB) -8.0 -8.0 -9-1.8 meq/L Bedside Blood Gas O2 Saturation 29.0 95.0 90-95 % Marko Test Pass Pass Oxygen Delivery Device Cannula Cannula Test 09/29/16 22:37 09/30/16 00:53 09/30/16 05:40 09/30/16 10:15 Range/Units Lactic Acid Level 2.6 2.0 0.4-2.0 mmol/L Sodium Level 134 134 136-145 mmol/L Potassium Level 4.7 4.7 3.5-5.1 mmol/L Chloride Level 105 106 98-107 mmol/L Carbon Dioxide Level 17 18 21-32 mmol/L Anion Gap 12.0 10.0 3-11 mmol/L Blood Urea Nitrogen 46 46 7-18 mg/dl Creatinine 2.40 2.30 0.60-1.40 mg/dl Est Creatinine Clear Calc Drug Dose 24.5 28.9 ml/min Estimated GFR () 28.1 29.5 Estimated GFR (Non- 24.2 25.5 BUN/Creatinine Ratio 19.0 19.9 10-20 Random Glucose 84 103 70-99 mg/dl Calcium Level 8.0 7.5 8.5-10.1 mg/dl Troponin I 0.160 0.988 0-0.045 ng/ml White Blood Count 0.29 4.8-10.8 K/uL Red Blood Count 3.37 4.7-6.1 M/uL Hemoglobin 11.1 14.0-18.0 g/dL Hematocrit 32.2 42-52 % Mean Corpuscular Volume 95.5 80-100 fL Mean Corpuscular Hemoglobin 32.9 25-34 pg Mean Corpuscular Hemoglobin Concent 34.5 32-36 g/dl Platelet Count 33 130-400 K/uL Mean Platelet Volume 11.0 7.4-10.4 fL RDW Standard Deviation 46.6 36.4-46.3 fL RDW Coefficient of Variation 13.3 11.5-14.5 % Neutrophils % (Manual) 48.6 % Lymphocytes % (Manual) 40.2 % Monocytes % (Manual) 11.2 % Neutrophils # (Manual) 0.14 1.4-6.5 K/uL Total Absolute Neutrophils 0.14 1.4-6.5 K/uL Lymphocytes # (Manual) 0.12 1.2-3.4 K/uL Total Absolute Lymphocytes 0.12 1.2-3.4 K/uL Monocytes # (Manual) 0.03 0.11-0.59 K/uL Toxic Granulation 1+ Toxic Vacuolation 1+ Large Platelets 2+ Echinocytes 2+ Prothrombin Time 39.0 9.0-12.0 SECONDS Prothromb Time International Ratio 3.5 0.9-1.1 Phosphorus Level 5.2 2.5-4.9 mg/dl Magnesium Level 2.0 1.8-2.4 mg/dl Total Bilirubin 1.2 0.2-1 mg/dl Direct Bilirubin 0.6 0-0.2 mg/dl Aspartate Amino Transf (AST/SGOT) 71 15-37 U/L Alanine Aminotransferase (ALT/SGPT) 38 12-78 U/L Alkaline Phosphatase 38 45-117 U/L Total Creatine Kinase 203 39-308 U/L Creatine Kinase MB 8.8 0.5-3.6 ng/ml Creatine Kinase MB Ratio 4.3 0-3.0 Total Protein 6.1 6.4-8.2 gm/dl Albumin 2.9 3.4-5.0 gm/dl Procalcitonin 96.03 0-0.5 ng/ml Thyroid Stimulating Hormone (TSH) 0.624 0.300-4.500 uIu/ml Random Cortisol > 150.00 mcg/dl Random Vancomycin Level 17.5 mcg/ml Blood Gas Sample Site R Radial Bedside Blood Gas pH (LAB) 7.32 7.35-7.45 Bedside Blood Gas pCO2 (LAB) 29 35-46 mmHg Bedside Blood Gas pO2 (LAB) 51 80-95 mmHg Bedside Blood Gas HCO3 (LAB) 15 19-24 meq/L Bedside Blood Gas Total CO2 16 24-31 mEq/l Bedside Blood Gas Base Excess (LAB) -11.0 -9-1.8 meq/L Bedside Blood Gas O2 Saturation 84.0 90-95 % Marko Test Pass Oxygen Delivery Device SimpleMask Test 09/30/16 11:36 09/30/16 13:16 Range/Units Bedside Glucose 107 70-99 mg/dl Sodium Level 134 136-145 mmol/L Potassium Level 4.4 3.5-5.1 mmol/L Chloride Level 104 98-107 mmol/L Carbon Dioxide Level 17 21-32 mmol/L Anion Gap 13.0 3-11 mmol/L Blood Urea Nitrogen 45 7-18 mg/dl Creatinine 2.30 0.60-1.40 mg/dl Est Creatinine Clear Calc Drug Dose 28.9 ml/min Estimated GFR () 29.5 Estimated GFR (Non- 25.5 BUN/Creatinine Ratio 19.6 10-20 Random Glucose 101 70-99 mg/dl Calcium Level 7.7 8.5-10.1 mg/dl Total Creatine Kinase 216 39-308 U/L Creatine Kinase MB 12.5 0.5-3.6 ng/ml Creatine Kinase MB Ratio 5.8 0-3.0 Troponin I 1.730 0-0.045 ng/ml Microbiology Results 09/29/16 Blood Culture - Preliminary, Resulted Gram Negative Bacilli 09/29/16 Blood Culture - Preliminary, Resulted Gram Negative Bacilli 09/30/16 Urine Culture, Received Pending Assessment and Plan 81 yo m w/ hx of Metastatic Prostate Cancer (2004) s/p chemo 1 wk ferry [employer] p/w nausea , dec'd appetite , abdominal pain, admitted with Pancytopenia secondary to chemotherapy, septic shock, Acute on Chronic Kidney Injury, and confirmed gram negative bacteremia on blood cx Sepsis with septic shock, Gram negative bacteremia in setting of Pancytopenia secondary to Chemotherapy - Blood cx's x2 positive for gram negative bacilli - c/w IV fluids, weaned off Levophed - awaiting final cx, and sensitivities - C/w Imipenem, Vanc, gentamycin - Procalcitonin: 96 - f/u repeat Cx's, procalcitonin, lactate Acute on Chronic Kidney Disease - Baseline Cr 1.1 -1.4 - Cr 2.3 - Continue to monitor BMP'S - C/w IV fluids Pancytopenia - secondary to chemotherapy for Metastatic Prostate Ca - Per infectious Disease, consider G-CSF Hx of DVT on coumadin at home - INR 3.5 -Warfarin held today CAD s/p stent,Chronic Diastolic HF -received Lasix today - weaned from Bipap to High flow thia AM - Echo ordered. F/u report c/s Ezetimibe, Atorvastatin Metastatic Prostate Cancer - dx 2004 -s/p chemotherapy 1 wk ferry [employer] DVT Proph -INR 3.5 - off warfarin currently -F/u repeat NR tmr Code status: Full Continued [facility] stay due to: abnormal vital signs Discharge planning: uncertain Resident Tracking Resident Involvement: Resident Care Provided Care Provided: Adult Hospital Medicine Reviewed: Pt Seen/Exam by Me History comfortable in bed off Levophed now c/o lower abdomen pain Constitutional: denies: fever Respiratory: negative: short of breath Cardiovascular: denies chest pain Gastrointestinal/Abdominal: negative: abdominal pain General Appearance: no apparent distress Respiratory: lungs clear, no respiratory distress Cardiovascular: regular rate, rhythm Gastrointestinal: normal bowel sounds, soft, tenderness (lower abdomen) Neurologic/Psychiatric: alert, oriented x 3 Skin Characteristics: warm/dry Assessment/Plan Resident Physician Supervision Note: I was present with Dr. Javed in bedside. I verified the mckeon history and physical, reviewed labs and image studies, discussed the case with the resident and agree with the findings and care plan.
[2016-09-30] MEDS ORDERED: WARFARIN SOD 2.5 MG TAB PO SCH (16:00)
[2016-09-30 17:07] LABS: BUN/CREATININE RATIO 21.5 (10-20); CALCIUM 7.5 mg/dl (8.5-10.1); CREATININE 2.2 mg/dl (0.60-1.40); POTASSIUM 4.6 mmol/L (3.5-5.1)
[2016-09-30] MEDS ORDERED: SODIUM BICARBONATE 8.4% INJ 150 MEQ in DEXTROSE 5% 1000ML 1,000 ML IV SCH (17:30)
--- NOTE | 2016-09-30 18:41 | ECHOCARDIOGRAM REPORT ---
*NOTICE TO RECEIVING [employer] [facility] This information is strictly Confidential and protected under [place] law. [place] law prohibits you from making any further disclosure of this information unless further disclosure is expressly permitted by the written consent of the person to whom it pertains or is authorized by law. A general authorization for the release of medical or other information is not sufficient for this purpose. Hospital accepts no responsibility if the information is made available to any other person, INCLUDING THE PATIENT. Interpretation Summary * Name: KI MONROE JR Study Date: 09/30/2016 06:53 AM BP: 110/83 mmHg * Patient Location: .MSICU\S\E112\S\1 HR: 102 * : 1935 (M/d/) Gender: Male Height: 70 in * Age: 81 yrs Ethnicity: CA Weight: 183 lb * Ordering Physician: Ara Godfrey * Referring Physician: Self, Referred * Performed By: Eduin Chaney RDCS * * Reason For Study: Hypotension, recent chemo * BSA: 2.0 m2 * -- Conclusions -- * 1. Normal left ventricular size with low-normal systolic function. Estimated EF 50%. Severe hypokinesis to akinesis of the inferior base and septal base. No left ventricular hypertrophy. Type 1 diastolic dysfunction. * 2. There is mild mitral regurgitation. * 3. Technically difficult study, enhanced with IV Definity. * 4. Compared to prior study on 12/19/2010, LV systolic function is no longer hyperdynamic, but rather low normal. Procedure Details * A complete two-dimensional transthoracic echocardiogram was performed (2D, M-mode, Doppler and color flow Doppler). * The study was technically difficult. * There were technical limitations due to patient'spoor positioning * The study was technically difficult, but visualization was adequate with the administration of Definity ultrasound contrast. * A contrast injection of Definity was performed to improve assessment of LV function. * Contrast was injected into an intravenous site in the left arm. * One vial of Definity ultrasound contrast was diluted in normal saline to a total volume of 10 ml. A total of '5' ml of solution was administered during imaging. * Lot # [id number] of Definity utilized for procedure. * Expiration date . * The attending nurse who injected the contrast agent was RADHIKA Casillas. Left Ventricle * Normal left ventricular size with low-normal systolic function. Estimated EF 50%. Severe hypokinesis to akinesis of the inferior base and septal base. No left ventricular hypertrophy. Type 1 diastolic dysfunction. Right Ventricle * The right ventricle is normal in size and function. * The right ventricular systolic function is normal as assessed by tricuspid annular plane systolic excursion (TAPSE) (normal >1.5 cm). Atria * The left atrial size is normal. * Right atrial size is normal. * There is no evidence of atrial septal defect, but resolution does not allow assessment for a patent foramen ovale. Mitral Valve * There is mild mitral annular calcification. * There is no mitral valve stenosis. * There is mild mitral regurgitation. Tricuspid Valve * The tricuspid valve is not well visualized, but is grossly normal. * There is no tricuspid stenosis. * There is trace tricuspid regurgitation. Aortic Valve * The aortic valve is not well visualized. * The aortic valve opens well. * No hemodynamically significant valvular aortic stenosis. * No aortic regurgitation is present. Pulmonic Valve * The pulmonic valve is not well visualized. * There is no pulmonic valvular stenosis. * There is no significant pulmonary regurgitation. Great Vessels * The aortic root is normal size. Pericardium/Pleural * There is no pericardial effusion. Great Vessels * Mildly dilated IVC. MMode 2D Measurements and Calculations IVSd 1.0 cm IVSs 1.5 cm LVIDd 4.9 cm LVIDs 3.2 cm LVPWd 0.94 cm IVS/LVPW 1.1 FS 35.3 % EDV(Teich) 113.9 ml ESV(Teich) 40.4 ml EF(Teich) 64.5 % EDV(cubed) 119.1 ml ESV(cubed) 32.2 ml EF(cubed) 72.9 % % IVS thick 45.5 % LV mass(C)d 174.7 grams LV mass(C)dI 86.9 grams/m\S\2 SV(Teich) 73.5 ml SI(Teich) 36.5 ml/m\S\2 SV(cubed) 86.8 ml SI(cubed) 43.2 ml/m\S\2 Ao root diam 3.1 cm Ao root area 7.7 cm\S\2 ACS 1.8 cm LA dimension 4.0 cm LA/Ao 1.3 LVOT diam 2.0 cm LVOT area 3.2 cm\S\2 LVAd ap4 41.6 cm\S\2 LVLd ap4 9.6 cm EDV(MOD-sp4) 144.0 ml EDV(sp4-el) 102.7 ml LVAs ap4 26.9 cm\S\2 LVLs ap4 8.5 cm ESV(MOD-sp4) 68.0 ml ESV(sp4-el) 50.1 ml EF(MOD-sp4) 52.8 % EF(sp4-el) 51.2 % LVAd ap2 24.9 cm\S\2 LVLd ap2 7.3 cm EDV(MOD-sp2) 71.0 ml LVAs ap2 16.1 cm\S\2 LVLs ap2 6.3 cm ESV(MOD-sp2) 35.0 ml EF(MOD-sp2) 50.7 % SV(MOD-sp4) 76.0 ml SI(MOD-sp4) 37.8 ml/m\S\2 SV(MOD-sp2) 36.0 ml SI(MOD-sp2) 17.9 ml/m\S\2 SV(sp4-el) 52.6 ml SI(sp4-el) 26.2 ml/m\S\2 Doppler Measurements and Calculations MV E max eduar 70.6 cm/sec MV A max eduar 78.5 cm/sec MV E/A 0.90 MV dec time 0.11 sec Ao V2 max 83.3 cm/sec Ao max PG 2.8 mmHg Ao max PG (full) 1.5 mmHg CLIFF(V,A) 2.1 cm\S\2 CLIFF(V,D) 2.1 cm\S\2 LV V1 max PG 1.3 mmHg LV V1 max 56.3 cm/sec PA V2 max 80.8 cm/sec PA max PG 2.6 mmHg TR max eduar 247.1 cm/sec
[2016-09-30] MEDS ORDERED: BOOST VANILLA PO STA ×2 (21:03)
[2016-09-30] MEDS ORDERED: HYDROCORTISONE IV 50 MG in SYRINGE 0 ML IV ONE (23:45)
[2016-09-30] MEDS ORDERED: HYDROCORTISONE SOD SUCCINATE 100 MG/2 ML VIAL IV ONE (23:45)
[2016-09-30] MEDS: HYDROCORTISONE IV 50 MG in SYRINGE 0 ML IV SCH (23:52)
[2016-10-01] VITALS (28 sets, daily range): BP systolic 84–123; BP diastolic 55–89; PULSE 91–146; TEMP 36.4–36.8; O2SAT 90–95
[2016-10-01] MEDS ORDERED: NURSING VERBAL MED ORDER ONE ×4 (04:30→21:30)
[2016-10-01] MEDS ORDERED: DIGOXIN IV 250 MCG in SYRINGE 9 ML IV ONE (04:45)
[2016-10-01] MEDS: IMIPENEM-CILASTATIN 250 MG in DEXTROSE 5% 100ML 100 ML IV SCH ×3 (05:32→17:26)
[2016-10-01] MEDS ORDERED: ALBUMIN HUMAN 25% 12.5 GM/50 ML VIAL IV ONE (05:45)
[2016-10-01] MEDS ORDERED: LORAZEPAM 2 MG/ML 1 ML VIAL IV STA (05:50)
[2016-10-01 05:51] LABS: PROTHROMBIN TIME (PATIENT) 97.7 SECONDS (9.0-12.0)
[2016-10-01] MEDS ORDERED: LORAZEPAM 2 MG/ML 1 ML VIAL ONE (05:53)
[2016-10-01] MEDS ORDERED: SODIUM CHLORIDE 0.9% 500ML 500 ML IV ONE (06:00)
[2016-10-01 06:01] LABS: BUN/CREATININE RATIO 23.8 (10-20); CALCIUM 7.1 mg/dl (8.5-10.1); CREATININE 1.8 mg/dl (0.60-1.40); POTASSIUM 3.3 mmol/L (3.5-5.1)
[2016-10-01 06:11] LABS: INR > 8.0 (0.9-1.1)
[2016-10-01 06:12] LABS: HEMATOCRIT 29.5 % (42-52); MEAN CELL VOLUME 92.5 fL (80-100); MEAN CORPUSCULAR HEMOGLOBIN 32.9 pg (25-34); MEAN CORPUSCULAR HGB CONC 35.6 g/dl (32-36); MEAN PLATELET VOLUME 10.7 fL (7.4-10.4); PLATELET COUNT 32 K/uL (130-400); RED BLOOD COUNT 3.19 M/uL (4.7-6.1); WHITE BLOOD COUNT 0.55 K/uL (4.8-10.8)
[2016-10-01] MEDS ORDERED: NURSING VERBAL MED ORDER STA (06:13)
[2016-10-01 06:21] LABS: ECHINOCYTES 1+; GIANT PLATELETS 3+; TOXIC GRANULATION 2+; VACUOLIZATION 2+
[2016-10-01 06:22] LABS: COMPLETE YES; LYMPH ABS # 0.21 K/uL (1.2-3.4); LYMPHOCYTE % 37.3 %; NEUTROPHILS % 49.3 %
[2016-10-01 06:23] LABS: ISTAT ALLEN TEST Pass; ISTAT ARTERIAL BLOOD GAS HCO3 18 meq/L (19-24); ISTAT ARTERIAL BLOOD GAS PCO2 27 mmHg (35-46); ISTAT ARTERIAL BLOOD GAS PO2 66 mmHg (80-95); ISTAT ARTERIAL BLOOD GAS pH 7.44 (7.35-7.45); ISTAT CARBON DIOXIDE 19 mEq/l (24-31); ISTAT DELIVERY SYSTEM Other; ISTAT FIO2 0 %; ISTAT SITE R Radial
[2016-10-01] MEDS ORDERED: TIGEcycline INJ 100 MG in DEXTROSE 5% 100ML 100 ML IV ONE (06:30)
[2016-10-01] MEDS ORDERED: PHYTONADIONE INJ 10 MG in SODIUM CHLORIDE 0.9% 50ML 50 ML IV ONE (06:45)
[2016-10-01] MEDS ORDERED: POTASSIUM CHLORIDE 10 MEQ TABCR PO STA (07:58)
[2016-10-01] MEDS: ATORVASTATIN 40 MG TAB PO SCH (09:00)
[2016-10-01] MEDS: EZETIMIBE 10MG TAB PO SCH (09:00)
[2016-10-01] MEDS: CEROVITE ADV FORMULA TAB PO SCH (09:00)
--- NOTE | 2016-10-01 09:00 | DIAGNOSTIC IMAGING REPORT ---
SINGLE VIEW CHEST CLINICAL HISTORY: Follow-up airspace consolidation. FINDINGS: An AP, portable, upright chest radiograph is compared to study performed the same day 09/30/2016 and correlated with chest CT dated 08/14/2016. The examination is significantly degraded by portable technique and patient rotation. There are calcified mediastinal and hilar lymph nodes. The heart is enlarged and there is atherosclerotic calcification of the thoracic aorta. There is mild pulmonary vascular congestion. Chronic interstitial thickening is noted. Bilateral airspace opacities are observed. Numerous calcified granulomas and foci of parenchymal scarring are similar to previous. There are small pleural effusions. No pneumothorax is seen. The skeletal structures are osteopenic. The bony thorax is grossly intact. IMPRESSION: 1. Cardiomegaly with developing pulmonary vascular congestion. 2. There are patchy bilateral airspace opacities. This likely represents a component of interstitial edema. Orally clinically for evidence of superimposed pneumonia. 3. Trace pleural effusions. 4. Numerous calcified granulomas, foci of parenchymal scarring, and calcified mediastinal/hilar lymph nodes are similar to previous. Electronically signed by: Ramon Ruggiero M.D. 10/01/2016 8:58 AM Dictated Date/Time: 10/01/2016 8:56 AM
[2016-10-01] MEDS: HYDROCORTISONE IV 50 MG in SYRINGE 0 ML IV SCH ×2 (09:08→16:16)
[2016-10-01] MEDS: POTASSIUM CHLR 10 MEQ / WTR 10 MEQ in PREMIXED WATER 100 ML IV SCH ×8 (09:08→19:11)
[2016-10-01 09:32] LABS: INR 3.1 (0.9-1.1); PROTHROMBIN TIME (PATIENT) 35.2 SECONDS (9.0-12.0)
[2016-10-01] MEDS ORDERED: FUROSEMIDE 40 MG/4 ML VIAL IV STA (10:58)
[2016-10-01] MEDS ORDERED: METOPROLOL TARTRATE 1 MG/ML VIAL IV ONE (11:00)
--- NOTE | 2016-10-01 11:46 | Family Medicine Progress Note ---
Progress Note Date of Service Oct 01, 2016. Subjective Pt evaluation today including: conversation w/ patient, conversation w/ family , physical exam, chart review, lab review, review of studies, conversation w/ polymer materials consultant (Critical Care), review of inpatient medication list Pain: denies Voiding: jose catheter in place Overnight, Patient went in to Afib, and became hypotensive. He was given dose of IV Digoxin and started on Tigecycline. Patient was also given ativan for sleep however was reported to have acute confusion and hallucinations this morning. INR this AM was >8 f for which he was given Vit K 10 mg Additional Comments: Constitutional: No fever, No chills Respiratory: + shortness of breath, No wheezing Cardiovascular: No chest pain, No claudication Abdomen: No pain, No nausea, No vomiting Male : + problem reported (jose in place) Neurologic: No numbness/tingling Skin: No rash, No itch Medications Current Inpatient Medications Medications (Trade) Dose Ordered Sig/Bisi Route Start Time Stop Time Status Last Admin Dose Admin Atorvastatin Calcium (Lipitor Tab) 80 mg DAILY PO 09/30/16 08:00 10/30/16 08:59 EZETIMIBE (Zetia Tab) 10 mg DAILY PO 09/30/16 08:00 10/30/16 08:59 Multivitamins/ Minerals (Multivitamin W/ Minerals Tab) 1 tab DAILY PO 09/30/16 08:00 10/30/16 08:59 Tramadol HCl (Ultram Tab) 50 mg Q6 PRN PO 09/29/16 11:45 10/29/16 11:44 10/01/16 04:07 50 MG Acetaminophen (Tylenol Tab) 650 mg Q4H PRN PO 09/29/16 12:15 10/29/16 12:14 09/29/16 17:06 650 MG Al Hydrox/Mg Hydrox/Simethicone (Maalox Max Susp) 15 ml Q4H PRN PO 09/29/16 12:15 10/29/16 12:14 Magnesium Hydroxide (Milk Of Magnesia Susp) 30 ml Q6H PRN PO 09/29/16 12:15 10/29/16 12:14 Polyethylene (Miralax Powder Packet) 17 gm DAILY PRN PO 09/29/16 12:15 10/29/16 12:14 Ondansetron HCl (Zofran Inj) 4 mg Q6H PRN IV 09/29/16 12:15 10/29/16 12:14 09/29/16 14:50 4 MG Warfarin Sodium (Coumadin Tab) 5 mg MoFr@1600 PO 09/29/16 16:00 10/29/16 15:59 Future Hold 09/29/16 17:07 5 MG Imipenem/ Cilastatin Sodium 250 mg/Dextrose 110 ml @ 100 mls/hr Q6H IV 09/30/16 00:00 10/07/16 00:00 10/01/16 12:05 100 MLS/HR Imipenem/ Cilastatin Sodium (Consult) 1 ea UD PRN N/A 09/29/16 17:30 10/29/16 17:29 Vancomycin HCl (Consult) 1 ea UD N/A 09/29/16 18:35 10/29/16 18:34 Norepinephrine Bitartrate 8 mg/ Dextrose 508 ml @ 0 mls/hr Q0M PRN IV 09/29/16 21:17 10/29/16 21:16 09/29/16 23:40 0 MLS/HR Hydrocortisone Sodium Succinate 50 mg/Syringe 1 ml @ 4 mls/min Q8H IV 10/01/16 00:00 10/31/16 00:00 10/01/16 09:08 4 MLS/MIN Tigecycline 50 mg/ Dextrose 105 ml @ 200 mls/hr Q12H IV 10/01/16 18:00 10/15/16 17:59 Potassium Chloride 10 meq/ Prmx 100 ml @ 100 mls/hr Q1H IV 10/01/16 11:15 10/01/16 13:14 10/01/16 12:05 100 MLS/HR Metoprolol Tartrate (Lopressor Iv) 2.5 mg Q4H IV. 10/01/16 14:00 10/31/16 13:59 Objective Vital Signs Date Time Temp Pulse Resp B/P (MAP) Pulse Ox O2 Delivery O2 Flow Rate FiO2 10/01/16 12:01 109 10/01/16 12:00 36.6 106 22 123/74 (90) 92 Nasal Cannula 2.0 10/01/16 12:00 Oxymask 2.0 Nasal Cannula 10/01/16 10:00 36.6 94 24 121/76 (91) 90 Nasal Cannula 2.0 10/01/16 08:00 Oxymask 2.0 Nasal Cannula 10/01/16 08:00 116 23 107/66 (80) 92 Nasal Cannula 2.0 10/01/16 06:00 140 26 93/69 (77) 93 10/01/16 05:31 144 21 94/56 (69) 93 10/01/16 05:00 137 24 115/73 (87) 94 10/01/16 04:38 140 10/01/16 04:30 130 24 102/76 (85) 92 10/01/16 04:23 36.8 146 27 117/78 (91) 90 10/01/16 04:11 93 Nasal Cannula 4.0 10/01/16 04:00 116 33 113/66 (82) 92 10/01/16 03:00 108 27 93/55 (68) 94 10/01/16 02:54 103 23 87/61 (70) 94 10/01/16 02:08 36.8 108 26 91/59 (70) 94 10/01/16 02:00 100 19 84/57 (66) 93 10/01/16 01:30 106 23 92/58 (69) 94 10/01/16 01:00 108 21 96/60 (72) 95 10/01/16 00:00 93 Nasal Cannula 4.0 10/01/16 00:00 108 27 91/56 (68) 93 Oxymask 4.0 09/30/16 23:30 105 22 93/56 (68) 94 Oxymask 4.0 09/30/16 23:19 106 22 82/59 (67) 95 Oxymask 4.0 09/30/16 23:00 106 23 86/49 (61) 94 Oxymask 4.0 09/30/16 22:00 110 24 116/71 (86) 92 Oxymask 09/30/16 21:30 111 24 122/77 (92) 93 Oxymask 09/30/16 21:00 104 24 98/69 (79) 93 Oxymask 09/30/16 20:30 104 28 104/70 (81) 94 Oxymask 4.0 09/30/16 20:00 93 Nasal Cannula 4.0 09/30/16 20:00 36.8 107 31 110/75 (87) Oxymask 4.0 09/30/16 19:31 107 29 95/67 (76) 91 09/30/16 19:00 109 27 103/70 (81) 93 09/30/16 18:00 36.6 98 18 104/65 (78) 93 Nasal Cannula 4.0 09/30/16 16:00 Nasal Cannula 4.0 09/30/16 16:00 104 25 92/68 (76) 95 Nasal Cannula 4.0 09/30/16 14:43 99 99 60 09/30/16 14:00 36.4 93 16 89/62 (71) 97 BiPAP 50 Physical Exam Notes: General Appearance: WD/WN, no apparent distress Eyes: PERRL, EOMI Neck: supple, no carotid bruits, trachea midline Respiratory/Chest: no respiratory distress, no accessory muscle use, + rales ( khang basilar) Cardiovascular: regular rate, rhythm, no edema, no murmur Abdomen: normal bowel sounds, non tender, soft Extremities: no pedal edema, no calf tenderness Neurologic/Psychiatric: alert, normal mood/affect Skin: normal color, warm/dry Laboratory Results Results Past 24 Hours Test 09/30/16 16:39 09/30/16 17:52 10/01/16 00:09 10/01/16 05:15 Range/Units Sodium Level 133 133 136-145 mmol/L Potassium Level 4.6 3.3 3.5-5.1 mmol/L Chloride Level 106 102 98-107 mmol/L Carbon Dioxide Level 16 21 21-32 mmol/L Anion Gap 11.0 10.0 3-11 mmol/L Blood Urea Nitrogen 47 43 7-18 mg/dl Creatinine 2.20 1.80 0.60-1.40 mg/dl Est Creatinine Clear Calc Drug Dose 30.2 37.0 ml/min Estimated GFR () 31.2 39.7 Estimated GFR (Non- 26.9 34.3 BUN/Creatinine Ratio 21.5 23.8 10-20 Random Glucose 105 134 70-99 mg/dl Calcium Level 7.5 7.1 8.5-10.1 mg/dl Chemistry Specimen Hemolysis Bedside Glucose 136 143 70-99 mg/dl White Blood Count 0.55 4.8-10.8 K/uL Red Blood Count 3.19 4.7-6.1 M/uL Hemoglobin 10.5 14.0-18.0 g/dL Hematocrit 29.5 42-52 % Mean Corpuscular Volume 92.5 80-100 fL Mean Corpuscular Hemoglobin 32.9 25-34 pg Mean Corpuscular Hemoglobin Concent 35.6 32-36 g/dl Platelet Count 32 130-400 K/uL Mean Platelet Volume 10.7 7.4-10.4 fL RDW Standard Deviation 43.5 36.4-46.3 fL RDW Coefficient of Variation 12.7 11.5-14.5 % Neutrophils % (Manual) 49.3 % Lymphocytes % (Manual) 37.3 % Monocytes % (Manual) 13.4 % Neutrophils # (Manual) 0.27 1.4-6.5 K/uL Total Absolute Neutrophils 0.27 1.4-6.5 K/uL Lymphocytes # (Manual) 0.21 1.2-3.4 K/uL Total Absolute Lymphocytes 0.21 1.2-3.4 K/uL Monocytes # (Manual) 0.07 0.11-0.59 K/uL Toxic Granulation 2+ Toxic Vacuolation 2+ Giant Platelets 3+ Echinocytes 1+ Prothrombin Time 97.7 9.0-12.0 SECONDS Prothromb Time International Ratio > 8.0 0.9-1.1 Lactic Acid Level 2.5 0.4-2.0 mmol/L Magnesium Level 2.0 1.8-2.4 mg/dl Troponin I 0.891 0-0.045 ng/ml Random Vancomycin Level 14.8 mcg/ml Test 10/01/16 06:09 10/01/16 06:22 10/01/16 08:26 10/01/16 12:18 Range/Units Blood Gas Sample Site R Radial Bedside Blood Gas pH (LAB) 7.44 7.35-7.45 Bedside Blood Gas pCO2 (LAB) 27 35-46 mmHg Bedside Blood Gas pO2 (LAB) 66 80-95 mmHg Bedside Blood Gas HCO3 (LAB) 18 19-24 meq/L Bedside Blood Gas Total CO2 19 24-31 mEq/l Bedside Blood Gas Base Excess (LAB) -6.0 -9-1.8 meq/L Bedside Blood Gas O2 Saturation 94.0 90-95 % Marko Test Pass Oxygen Delivery Device Other Bedside FiO2 0 % Procalcitonin 50.16 0-0.5 ng/ml Prothrombin Time 35.2 9.0-12.0 SECONDS Prothromb Time International Ratio 3.1 0.9-1.1 Bedside Glucose 112 70-99 mg/dl Microbiology Results 10/01/16 Blood Culture, Received Pending 10/01/16 Blood Culture, Received Pending Assessment and Plan 81 yo m w/ hx of Metastatic Prostate Cancer (2004) s/p chemo 1 wk lpta p/w nausea , dec'd appetite , abdominal pain, admitted with Pancytopenia secondary to chemotherapy, septic shock, Acute on Chronic Kidney Injury, and confirmed gram negative bacteremia on blood cx Sepsis with septic shock, Gram negative bacteremia in setting of Pancytopenia secondary to Chemotherapy - Blood cx's x2 positive for gram negative bacilli - c/w IV fluids, weaned off Levophed (09/30) - awaiting final cx, and sensitivities - C/w Imipenem, Vanc, gentamycin - Procalcitonin: 96 --->50 - repeat Cx's Pending -Tigecycline started overnight to be held until ID weighs in Afib with RVR -asx -s/p Digoxin treatment overnight -HR as high as 146 this morning - Metoprolol IV 2.5mg q4 started today Delirium - acute confusion, hallucinations overnight - may have been secondary to Ativan usage -mental status improved from overnight - Ativan to be avoided -Continue to monitor Acute on Chronic Kidney Disease - Baseline Cr 1.1 -1.4 - Cr 2.3 -->1.8, trending down - Continue to monitor BMP'S - C/w IV fluids Pancytopenia - secondary to chemotherapy for Metastatic Prostate Ca - Per infectious Disease, consider G-CSF 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 -c/w Ezetimibe, Atorvastatin Metastatic Prostate Cancer - dx 2004 -s/p chemotherapy 1 wk lpta DVT Proph -INR 3.5 from 8+ as stated above -off warfarin currently -F/u repeat INR tmr PTOT Continued [facility] stay due to: abnormal vital signs, multiple IV medications needed Discharge planning: uncertain Resident Tracking Resident Involvement: Resident Care Provided Care Provided: Adult Hospital Medicine Reviewed: Pt Seen/Exam by Me History stable overnight. Constitutional: denies: fever Respiratory: negative: short of breath Cardiovascular: denies chest pain Gastrointestinal/Abdominal: negative: abdominal pain General Appearance: no apparent distress Respiratory: lungs clear, no respiratory distress Cardiovascular: regular rate, rhythm Gastrointestinal: normal bowel sounds, non tender, soft Neurologic/Psychiatric: alert, other (somnolent - appropriately responsive) Skin Characteristics: warm/dry Assessment/Plan Resident Physician Supervision Note: I was present with Dr. Javed in bedside. I verified the mckeon history and physical, reviewed labs and image studies, discussed the case with the resident and agree with the findings and care plan.
--- NOTE | 2016-10-01 12:47 | Critical Care Progress Note ---
Critical Care Progress Note Date of Service Oct 01, 2016. ICU Day ICU Day Number: 2 Attending Subjective Early this morning the patient went into atrial fibrillation with rapid ventricular response. He was evaluated by the hospitalist and given digoxin 0.25 mg, his sodium bicarbonate infusion was increased, and he received 2 mg of Ativan. His INR was greater than 8 and he received 10 mg of IV vitamin K. He was started on Tygacil and his hydrocortisone was increased to 50 mg IV every 8 hours from 50 mg IV every 12 hours. His arterial blood gas showed a respiratory alkalosis and he has been primarily in sinus rhythm from mid morning until noon. He required BiPAP 12/7 50% yesterday but has not used it since yesterday evening. He was given 1 dose of gentamicin yesterday when his blood cultures came back positive for gram-negative bacilli. His reports he has become more delirious over the night. The patient reports right shoulder pain which is chronic. He is not taking by mouth well, less so this morning due to his delirium. Objective Vitals: Maximum temperature 36.8, heart rate 95-140, respiratory rate 19-33, blood pressure 93-102 / 50s -60s, oxygen saturation 93% on 4 L oxygen max. 24 hour fluid balance +1.2 L. No bowel movement since admission Exam: Gen: He was asleep when I entered the room. He appears tired and has difficulty staying awake. Neuro: CAM assessment negative. Strength in the upper and lower extremities is 4 over 5, left lower extremity testing is limited by leg and back pain. Lungs: Bibasilar rales no rhonchi or wheezes. Heart: Regular rate, irregular rhythm. No murmurs. Abdomen: Very mildly distended, firm, nontender, active bowel sounds. Extremities: No significant edema. Assessment & Plan Assessment: 1. Neutropenic sepsis, gram-negative bacteremia status post chemotherapy for metastatic prostate cancer. He remains on Primaxin, vancomycin and tigecycline which was added by the hospitalist last night. He has multiple allergies to medications and has received one dose of gentamicin yesterday. Source is unclear, likely translocation from the gut. Abdominal exam is benign. 2. Septic shock, resolved 3. Atrial fibrillation with rapid ventricular response, treated with digoxin. He has had a mildly elevated troponin as well. This is likely secondary to demand ischemia. Echo with severe hypokinesis to akinesis of the inferior base and septal base, ejection fraction 50%. He has a history of coronary artery disease and is followed by Dr. Nelson as an outpatient. Atenolol has been held secondary to his hypotension. Pro calcitonin is decreasing. 4. Neutropenia, continues to improve. He received Neulasta the day after his chemotherapy. I discussed this with Dr. Arvizu yesterday via phone. He did not recommend additional dosing of Neulasta or Neupogen. 5. Thrombocytopenia, hopefully stabilizing. 6. Acute hypoxemic respiratory failure secondary to acute lung injury from sepsis. 7. Acute kidney injury on chronic kidney disease, improving. Renal ultrasound essentially unremarkable. Probable ATN. 8. Acute metabolic encephalopathy and delirium. I suspect it is worse due to the Ativan he received this morning. He seemed much better yesterday. 9. Constipation. 10. Elevated INR, secondary to Coumadin as well as acute illness. He received 10 mg of IV vitamin K today. Repeat INR is 3.5. 11. History of right lower extremity DVT diagnosed in May of this year. 12. Metastatic prostate cancer, diagnosis in 2004 Plan: Neuro: Avoid benzodiazepines. Treat pain with acetaminophen and Ultram if he can by mouth. This is an outpatient medication for him. Pulmonary: Wean oxygen and diuresis. BiPAP when necessary. Incentive spirometry when he is able. Cardiovascular: Begin Lopressor 5 mg IV every 4 hours. GI: Proton pump inhibitor for prophylaxis, Colace and MiraLAX, nutritional supplements and advance diet when he is more awake. Infectious disease: Continue Primaxin and vancomycin. He seems to be tolerating the tigecycline so I will keep that for now and await infectious disease recommendations. Renal: Gentle diuresis. Discontinue soda bicarbonate infusion. If he is not beginning to eat by later today, gentle IV fluids. Replete potassium. Heme: Continue to follow counts which hopefully will be improving. Watch for any signs of bleeding. SCDs for DVT prophylaxis. Endocrine: He is on prednisone 10 mg as an outpatient. Continue to wean hydrocortisone. Physical therapy and occupational therapy have been ordered to begin tomorrow. His has been updated in detail at the bedside and I have answered her questions. Overall, other than atrial fibrillation, he seems to have stabilized. He has peripheral IVs and a Burdick catheter. Eventually he will require a PICC line. Consults & Procedures Consultants: Infectious disease Dr. Conley Procedures: None Data Medications: Current Inpatient Medications Medications (Trade) Dose Ordered Sig/Ibsi Route Start Time Stop Time Status Last Admin Dose Admin Atorvastatin Calcium (Lipitor Tab) 80 mg DAILY PO 09/30/16 08:00 10/30/16 08:59 EZETIMIBE (Zetia Tab) 10 mg DAILY PO 09/30/16 08:00 10/30/16 08:59 Multivitamins/ Minerals (Multivitamin W/ Minerals Tab) 1 tab DAILY PO 09/30/16 08:00 10/30/16 08:59 Tramadol HCl (Ultram Tab) 50 mg Q6 PRN PO 09/29/16 11:45 10/29/16 11:44 10/01/16 04:07 50 MG Acetaminophen (Tylenol Tab) 650 mg Q4H PRN PO 09/29/16 12:15 10/29/16 12:14 09/29/16 17:06 650 MG Al Hydrox/Mg Hydrox/Simethicone (Maalox Max Susp) 15 ml Q4H PRN PO 09/29/16 12:15 10/29/16 12:14 Magnesium Hydroxide (Milk Of Magnesia Susp) 30 ml Q6H PRN PO 09/29/16 12:15 10/29/16 12:14 Polyethylene (Miralax Powder Packet) 17 gm DAILY PRN PO 09/29/16 12:15 10/29/16 12:14 Ondansetron HCl (Zofran Inj) 4 mg Q6H PRN IV 09/29/16 12:15 10/29/16 12:14 09/29/16 14:50 4 MG Warfarin Sodium (Coumadin Tab) 5 mg MoFr@1600 PO 09/29/16 16:00 10/29/16 15:59 Future Hold 09/29/16 17:07 5 MG Imipenem/ Cilastatin Sodium 250 mg/Dextrose 110 ml @ 100 mls/hr Q6H IV 09/30/16 00:00 10/07/16 00:00 10/01/16 12:05 100 MLS/HR Imipenem/ Cilastatin Sodium (Consult) 1 ea UD PRN N/A 09/29/16 17:30 10/29/16 17:29 Vancomycin HCl (Consult) 1 ea UD N/A 09/29/16 18:35 10/29/16 18:34 Norepinephrine Bitartrate 8 mg/ Dextrose 508 ml @ 0 mls/hr Q0M PRN IV 09/29/16 21:17 10/29/16 21:16 09/29/16 23:40 0 MLS/HR Hydrocortisone Sodium Succinate 50 mg/Syringe 1 ml @ 4 mls/min Q8H IV 10/01/16 00:00 10/31/16 00:00 10/01/16 09:08 4 MLS/MIN Tigecycline 50 mg/ Dextrose 105 ml @ 200 mls/hr Q12H IV 10/01/16 18:00 10/15/16 17:59 Potassium Chloride 10 meq/ Prmx 100 ml @ 100 mls/hr Q1H IV 10/01/16 11:15 10/01/16 13:14 10/01/16 12:05 100 MLS/HR Metoprolol Tartrate (Lopressor Iv) 2.5 mg Q4H IV. 10/01/16 14:00 10/31/16 13:59 Vital Signs: Date Time Temp Pulse Resp B/P (MAP) Pulse Ox O2 Delivery O2 Flow Rate FiO2 10/01/16 12:01 109 10/01/16 10:00 36.6 94 24 121/76 (91) 90 Nasal Cannula 2.0 10/01/16 08:00 Oxymask 2.0 Nasal Cannula 10/01/16 08:00 116 23 107/66 (80) 92 Nasal Cannula 2.0 10/01/16 06:00 140 26 93/69 (77) 93 10/01/16 05:31 144 21 94/56 (69) 93 10/01/16 05:00 137 24 115/73 (87) 94 10/01/16 04:38 140 10/01/16 04:30 130 24 102/76 (85) 92 10/01/16 04:23 36.8 146 27 117/78 (91) 90 10/01/16 04:11 93 Nasal Cannula 4.0 10/01/16 04:00 116 33 113/66 (82) 92 10/01/16 03:00 108 27 93/55 (68) 94 10/01/16 02:54 103 23 87/61 (70) 94 10/01/16 02:08 36.8 108 26 91/59 (70) 94 10/01/16 02:00 100 19 84/57 (66) 93 10/01/16 01:30 106 23 92/58 (69) 94 10/01/16 01:00 108 21 96/60 (72) 95 10/01/16 00:00 93 Nasal Cannula 4.0 10/01/16 00:00 108 27 91/56 (68) 93 Oxymask 4.0 09/30/16 23:30 105 22 93/56 (68) 94 Oxymask 4.0 09/30/16 23:19 106 22 82/59 (67) 95 Oxymask 4.0 09/30/16 23:00 106 23 86/49 (61) 94 Oxymask 4.0 09/30/16 22:00 110 24 116/71 (86) 92 Oxymask 09/30/16 21:30 111 24 122/77 (92) 93 Oxymask 09/30/16 21:00 104 24 98/69 (79) 93 Oxymask 09/30/16 20:30 104 28 104/70 (81) 94 Oxymask 4.0 09/30/16 20:00 93 Nasal Cannula 4.0 09/30/16 20:00 36.8 107 31 110/75 (87) Oxymask 4.0 09/30/16 19:31 107 29 95/67 (76) 91 09/30/16 19:00 109 27 103/70 (81) 93 09/30/16 18:00 36.6 98 18 104/65 (78) 93 Nasal Cannula 4.0 09/30/16 16:00 Nasal Cannula 4.0 09/30/16 16:00 104 25 92/68 (76) 95 Nasal Cannula 4.0 09/30/16 14:43 99 99 60 09/30/16 14:00 36.4 93 16 89/62 (71) 97 BiPAP 50 Laboratory Results: EKG is from this morning were reviewed. Chest x-ray 10/01/16 IMPRESSION: 1. Cardiomegaly with developing pulmonary vascular congestion. 2. There are patchy bilateral airspace opacities. This likely represents a component of interstitial edema. Orally clinically for evidence of superimposed pneumonia. 3. Trace pleural effusions. 4. Numerous calcified granulomas, foci of parenchymal scarring, and calcified mediastinal/hilar lymph nodes are similar to previous. Echocardiogram 7/1/17 * -- Conclusions -- * 1. Normal left ventricular size with low-normal systolic function. Estimated EF 50%. Severe hypokinesis to akinesis of the inferior base and septal base. No left ventricular hypertrophy. Type 1 diastolic dysfunction. * 2. There is mild mitral regurgitation. * 3. Technically difficult study, enhanced with IV Definity. 4. Compared to prior study on 12/19/2010, LV systolic function is no longer hyperdynamic, but rather low normal Last 24 Hours Test 09/30/16 13:16 09/30/16 16:39 09/30/16 17:52 10/01/16 00:09 Sodium Level 134 mmol/L 133 mmol/L Potassium Level 4.4 mmol/L 4.6 mmol/L Chloride Level 104 mmol/L 106 mmol/L Carbon Dioxide Level 17 mmol/L 16 mmol/L Anion Gap 13.0 mmol/L 11.0 mmol/L Blood Urea Nitrogen 45 mg/dl 47 mg/dl Creatinine 2.30 mg/dl 2.20 mg/dl Est Creatinine Clear Calc Drug Dose 28.9 ml/min 30.2 ml/min Estimated GFR () 29.5 31.2 Estimated GFR (Non- 25.5 26.9 BUN/Creatinine Ratio 19.6 21.5 Random Glucose 101 mg/dl 105 mg/dl Calcium Level 7.7 mg/dl 7.5 mg/dl Total Creatine Kinase 216 U/L Creatine Kinase MB 12.5 ng/ml Creatine Kinase MB Ratio 5.8 Troponin I 1.730 ng/ml Chemistry Specimen Hemolysis Bedside Glucose 136 mg/dl 143 mg/dl Test 10/01/16 05:15 10/01/16 06:09 10/01/16 06:22 10/01/16 08:26 White Blood Count 0.55 K/uL Red Blood Count 3.19 M/uL Hemoglobin 10.5 g/dL Hematocrit 29.5 % Mean Corpuscular Volume 92.5 fL Mean Corpuscular Hemoglobin 32.9 pg Mean Corpuscular Hemoglobin Concent 35.6 g/dl Platelet Count 32 K/uL Mean Platelet Volume 10.7 fL RDW Standard Deviation 43.5 fL RDW Coefficient of Variation 12.7 % Neutrophils % (Manual) 49.3 % Lymphocytes % (Manual) 37.3 % Monocytes % (Manual) 13.4 % Neutrophils # (Manual) 0.27 K/uL Total Absolute Neutrophils 0.27 K/uL Lymphocytes # (Manual) 0.21 K/uL Total Absolute Lymphocytes 0.21 K/uL Monocytes # (Manual) 0.07 K/uL Toxic Granulation 2+ Toxic Vacuolation 2+ Giant Platelets 3+ Echinocytes 1+ Prothrombin Time 97.7 SECONDS 35.2 SECONDS Prothromb Time International Ratio > 8.0 3.1 Sodium Level 133 mmol/L Potassium Level 3.3 mmol/L Chloride Level 102 mmol/L Carbon Dioxide Level 21 mmol/L Anion Gap 10.0 mmol/L Blood Urea Nitrogen 43 mg/dl Creatinine 1.80 mg/dl Est Creatinine Clear Calc Drug Dose 37.0 ml/min Estimated GFR () 39.7 Estimated GFR (Non- 34.3 BUN/Creatinine Ratio 23.8 Random Glucose 134 mg/dl Lactic Acid Level 2.5 mmol/L Calcium Level 7.1 mg/dl Magnesium Level 2.0 mg/dl Troponin I 0.891 ng/ml Random Vancomycin Level 14.8 mcg/ml Blood Gas Sample Site R Radial Bedside Blood Gas pH (LAB) 7.44 Bedside Blood Gas pCO2 (LAB) 27 mmHg Bedside Blood Gas pO2 (LAB) 66 mmHg Bedside Blood Gas HCO3 (LAB) 18 meq/L Bedside Blood Gas Total CO2 19 mEq/l Bedside Blood Gas Base Excess (LAB) -6.0 meq/L Bedside Blood Gas O2 Saturation 94.0 % Marko Test Pass Oxygen Delivery Device Other Bedside FiO2 0 % Procalcitonin 50.16 ng/ml
[2016-10-01] MEDS ORDERED: VANCOMYCIN INJ 1,250 MG in SODIUM CHLORIDE 0.9% 250ML 250 ML IV SCH (13:30)
[2016-10-01] MEDS ORDERED: METOPROLOL TARTRATE 1 MG/ML VIAL IV. SCH (14:00)
[2016-10-01 15:21] LABS: HEMATOCRIT 30.9 % (42-52); MEAN CELL VOLUME 91.7 fL (80-100); RED BLOOD COUNT 3.37 M/uL (4.7-6.1); WHITE BLOOD COUNT 1.06 K/uL (4.8-10.8)
[2016-10-01 15:28] LABS: INR 1.5 (0.9-1.1); PROTHROMBIN TIME (PATIENT) 16.1 SECONDS (9.0-12.0)
[2016-10-01 15:32] LABS: MEAN PLATELET VOLUME 11.5 fL (7.4-10.4); PLATELET COUNT 31 K/uL (130-400)
[2016-10-01 15:40] LABS: BUN/CREATININE RATIO 29.2 (10-20); CALCIUM 7.3 mg/dl (8.5-10.1); CREATININE 1.5 mg/dl (0.60-1.40); MAGNESIUM 1.9 mg/dl (1.8-2.4); POTASSIUM 3.4 mmol/L (3.5-5.1)
[2016-10-01] MEDS ORDERED: FUROSEMIDE INJ 20 MG in SYRINGE 0 ML IV SCH (16:00)
[2016-10-01] MEDS ORDERED: BISACODYL 10 MG SUPP PR PRN (16:00)
[2016-10-01] MEDS ORDERED: MAGNESIUM SULFATE 1GM / D5W 1 GM in PREMIXED IN D5W 100 ML IV ONE (16:15)
[2016-10-01] MEDS: METOPROLOL TARTRATE 1 MG/ML VIAL IV. SCH ×2 (17:26→23:18)
[2016-10-01] MEDS: TIGEcycline INJ 50 MG in DEXTROSE 5% 100ML 100 ML IV SCH (17:26)
[2016-10-01] MEDS: ACETAMINOPHEN 1000 MG/100 ML IV IV PRN (20:13)
[2016-10-01] MEDS ORDERED: BOOST VANILLA PO ONE ×2 (21:45)
[2016-10-02] VITALS (30 sets, daily range): BP systolic 100–128; BP diastolic 63–95; PULSE 81–112; TEMP 36.3–36.8; O2SAT 89–95
[2016-10-02] MEDS: IMIPENEM-CILASTATIN 250 MG in DEXTROSE 5% 100ML 100 ML IV SCH ×2 (00:08→05:07)
[2016-10-02] MEDS: HYDROCORTISONE IV 50 MG in SYRINGE 0 ML IV SCH ×2 (00:08→08:38)
[2016-10-02] MEDS: METOPROLOL TARTRATE 1 MG/ML VIAL IV. SCH ×2 (01:48→06:17)
[2016-10-02] MEDS: TIGEcycline INJ 50 MG in DEXTROSE 5% 100ML 100 ML IV SCH (05:07)
[2016-10-02 05:52] LABS: HEMATOCRIT 33.3 % (42-52); MEAN CELL VOLUME 91.7 fL (80-100); MEAN CORPUSCULAR HEMOGLOBIN 31.7 pg (25-34); MEAN CORPUSCULAR HGB CONC 34.5 g/dl (32-36); RED BLOOD COUNT 3.63 M/uL (4.7-6.1); WHITE BLOOD COUNT 2.55 K/uL (4.8-10.8)
[2016-10-02 05:55] LABS: MEAN PLATELET VOLUME 11.9 fL (7.4-10.4); PLATELET COUNT 31 K/uL (130-400)
[2016-10-02 06:05] LABS: INR 1.3 (0.9-1.1); PROTHROMBIN TIME (PATIENT) 13.5 SECONDS (9.0-12.0)
[2016-10-02 06:20] LABS: BUN/CREATININE RATIO 38.4 (10-20); CALCIUM 7.5 mg/dl (8.5-10.1); CREATININE 1.3 mg/dl (0.60-1.40); MAGNESIUM 2.1 mg/dl (1.8-2.4); POTASSIUM 3.2 mmol/L (3.5-5.1)
[2016-10-02 06:49] LABS: PHOSPHORUS 2.6 mg/dl (2.5-4.9)
[2016-10-02 06:50] LABS: COMPLETE YES; EOS % 1.6 %; IG% 2.7 %; LARGE PLATELETS 2+; LYMPH % 9.8 %; LYMPH ABS # 0.25 K/uL (1.2-3.4); MONO % 9.4 %; NEUT % 76.5 %; TOXIC GRANULATION 2+; VACUOLIZATION 1+
[2016-10-02] MEDS ORDERED: HEPARIN IV LOW DOSE NO BOLUS SCH (07:06)
[2016-10-02 07:45] LABS: PARTIAL THROMBOPLASTIN RATIO 1.4
[2016-10-02] MEDS: CEROVITE ADV FORMULA TAB PO SCH (08:38)
[2016-10-02] MEDS: ATORVASTATIN 40 MG TAB PO SCH (08:39)
[2016-10-02] MEDS: EZETIMIBE 10MG TAB PO SCH (08:39)
[2016-10-02] MEDS: HEPARIN 25,000 UNIT/500ML D5W 500 ML IV PRN (08:45)
--- NOTE | 2016-10-02 09:09 | Clinical Documentation Query ---
LIZZIE Agee : CLINICAL DOCUMENTATION QUERIES QUERY 1 OF 2 Please document the (likely/suspected) present on admission status for "sepsis" as this directly impacts DRG assignment and therefore severity of illness and risk of mortality. Thank you. In your clinical opinion is this patient being managed for: ( ) Sepsis, present on admission, progressing to septic shock due to gram negative bacteremia in the setting of pancytopenia due to chemotherapy ( ) Other explanation of clinical findings (Please Explain) ( ) Unable to determine (Please Define) ( ) Need to Discuss ( ) Not Agree The medical record reflects the following clinical findings, treatment, and risk factors. Clinical Indicators: Gram negative bacteremia from cultures drawn shortly after but day of admission. Treatment: IVF, IV antibiotics, IV vasopressors, IV corticosteroids, ICU standard of care, water quality manager consultation.Risk Factors: Neutropenia in the setting of chemotherapy QUERY 2 OF 2 CK-MB, CK-MB ratio, and troponin values noted to be elevated with peak troponin of 1.73 ng/ml, or nearly 40 times the upper limit of the normal reference range. In your clinical opinion is this patient being managed for: ( ) Type II NSTEMI ( ) Other explanation of clinical findings (Please Explain) ( ) Unable to determine (Please Define) ( ) Need to Discuss ( ) Not Agree The medical record reflects the following clinical findings, treatment, and risk factors. Clinical Indicators: Treatment: IV heparin, ICU standard of care, Lopressor, serial enzymes, EKG's, echocardiogram treatment of sepsis Risk Factors: Septic shock Please clarify and document your clinical opinion in the progress notes and discharge summary. Terms such as "probable", "suspected", "likely", "questionable", "possible", or "still to be ruled out" are acceptable. IF IN AGREEMENT, YOU MUST DOCUMENT ABOVE DIAGNOSTIC STATEMENT IN DAILY PROGRESS NOTES AND DISCHARGE SUMMARY. This document is not part of the patient's record. Thank You, Serg Guillory, RN [phone]
--- NOTE | 2016-10-02 09:10 | Clinical Documentation Query ---
DELIA Ascencio : CLINICAL DOCUMENTATION QUERIES QUERY 1 OF 2 Please document the (likely/suspected) present on admission status for "sepsis" as this directly impacts DRG assignment and therefore severity of illness and risk of mortality. Thank you. In your clinical opinion is this patient being managed for: ( x ) Sepsis, present on admission, progressing to septic shock due to gram negative bacteremia in the setting of pancytopenia due to chemotherapy ( ) Other explanation of clinical findings (Please Explain) ( ) Unable to determine (Please Define) ( ) Need to Discuss ( ) Not Agree The medical record reflects the following clinical findings, treatment, and risk factors. Clinical Indicators: Gram negative bacteremia from cultures drawn shortly after but day of admission. Treatment: IVF, IV antibiotics, IV vasopressors, IV corticosteroids, ICU standard of care, transfer driver consultation.Risk Factors: Neutropenia in the setting of chemotherapy QUERY 2 OF 2 CK-MB, CK-MB ratio, and troponin values noted to be elevated with peak troponin of 1.73 ng/ml, or nearly 40 times the upper limit of the normal reference range. In your clinical opinion is this patient being managed for: ( x ) Type II NSTEMI ( ) Other explanation of clinical findings (Please Explain) ( ) Unable to determine (Please Define) ( ) Need to Discuss ( ) Not Agree The medical record reflects the following clinical findings, treatment, and risk factors. Clinical Indicators: As above Treatment: IV heparin, ICU standard of care, Lopressor, serial enzymes, EKG's, echocardiogram treatment of sepsis Risk Factors: Septic shock Please clarify and document your clinical opinion in the progress notes and discharge summary. Terms such as "probable", "suspected", "likely", "questionable", "possible", or "still to be ruled out" are acceptable. IF IN AGREEMENT, YOU MUST DOCUMENT ABOVE DIAGNOSTIC STATEMENT IN DAILY PROGRESS NOTES AND DISCHARGE SUMMARY. This document is not part of the patient's record. Thank You, Serg Guillory, RADHIKA [phone]
--- NOTE | 2016-10-02 09:51 | Progress Note ---
Subjective Date of Service: Oct 02, 2016. Subjective pt awake, afebrile. working with OT. Initial blood cultures with pseudomonas, I to gent only. Is now on multiple abx, vanco, imipenem and tig. did receive one time dose gent also. creat much improved. repeat blood cultures pending. urine culture pending. ANC >1000, pancytopenia improving. afebrile over weekend. no overnight events. appears comfortable. Problem List Medical Problems: (1) Acute renal failure Status: Acute (2) Hyperkalemia Status: Acute (3) Hypotension Status: Acute (4) Severe neutropenia Status: Acute (5) Subtherapeutic international normalized ratio (INR) Status: Acute Objective Vital Signs Date Time Temp Pulse Resp B/P (MAP) Pulse Ox O2 Delivery O2 Flow Rate FiO2 10/02/16 07:30 36.3 94 16 121/77 (92) 93 Nasal Cannula 2.0 10/02/16 07:30 Nasal Cannula 2.0 10/02/16 06:17 97 128/95 10/02/16 05:59 36.8 10/02/16 04:04 93 Nasal Cannula 4.0 10/02/16 04:00 97 16 128/95 (106) 93 Nasal Cannula 2.0 10/02/16 03:00 92 29 126/80 (95) 94 Nasal Cannula 2.0 10/02/16 02:01 81 21 117/77 (90) 94 Nasal Cannula 2.0 10/02/16 02:00 83 21 93 Nasal Cannula 2.0 10/02/16 01:48 92 119/85 10/02/16 01:28 36.7 10/02/16 00:49 93 Nasal Cannula 4.0 10/02/16 00:00 92 17 119/85 (96) 94 Nasal Cannula 2.0 10/01/16 23:18 97 120/79 10/01/16 23:01 91 18 107/89 (95) 93 Nasal Cannula 2.0 10/01/16 23:00 94 18 94 Nasal Cannula 2.0 10/01/16 22:01 103 28 113/73 (86) 94 10/01/16 22:00 104 20 94 10/01/16 21:00 97 24 120/79 (93) 93 10/01/16 20:18 96 23 114/71 (85) 93 10/01/16 20:00 36.6 109 32 93 10/01/16 20:00 93 Nasal Cannula 4.0 10/01/16 19:00 94 32 117/78 (91) 94 10/01/16 18:00 36.6 96 24 117/78 (91) 94 Oxymask 2.0 10/01/16 17:26 106 10/01/16 16:00 36.6 96 24 114/78 (90) 94 Oxymask 2.0 10/01/16 16:00 Oxymask 2.0 10/01/16 14:00 36.4 99 21 117/78 (91) 93 Nasal Cannula 2.0 10/01/16 13:53 107 10/01/16 12:01 109 10/01/16 12:00 36.6 106 22 123/74 (90) 92 Nasal Cannula 2.0 10/01/16 12:00 Oxymask 2.0 Nasal Cannula 10/01/16 10:00 36.6 94 24 121/76 (91) 90 Nasal Cannula 2.0 Physical Exam Neck: supple Respiratory/Chest: normal breath sounds, no respiratory distress Neurologic/Psychiatric: alert, oriented x 3 Skin: normal color Laboratory Results Item Value Date Time Blood Culture - Preliminary Resulted 09/29/16 1750 Blood Pseudomonas Aeruginosa Blood Culture - Final Complete 09/29/16 1758 Blood Pseudomonas Aeruginosa Urine Culture - Preliminary Resulted 09/30/16 0711 Urine , Clean Catch PIN-POINT GROWTH PRESENT, REINCUBATING. Last 24 Hours Test 10/01/16 12:18 10/01/16 15:10 10/02/16 04:59 Bedside Glucose 112 mg/dl White Blood Count 1.06 K/uL 2.55 K/uL Red Blood Count 3.37 M/uL 3.63 M/uL Hemoglobin 10.8 g/dL 11.5 g/dL Hematocrit 30.9 % 33.3 % Mean Corpuscular Volume 91.7 fL 91.7 fL Mean Corpuscular Hemoglobin 32.0 pg 31.7 pg Mean Corpuscular Hemoglobin Concent 35.0 g/dl 34.5 g/dl RDW Standard Deviation 43.1 fL 43.2 fL RDW Coefficient of Variation 12.9 % 12.8 % Platelet Count 31 K/uL 31 K/uL Mean Platelet Volume 11.5 fL 11.9 fL Prothrombin Time 16.1 SECONDS 13.5 SECONDS Prothromb Time International Ratio 1.5 1.3 Sodium Level 134 mmol/L 135 mmol/L Potassium Level 3.4 mmol/L 3.2 mmol/L Chloride Level 100 mmol/L 102 mmol/L Carbon Dioxide Level 22 mmol/L 21 mmol/L Anion Gap 12.0 mmol/L 12.0 mmol/L Blood Urea Nitrogen 44 mg/dl 50 mg/dl Creatinine 1.50 mg/dl 1.30 mg/dl Est Creatinine Clear Calc Drug Dose 42.4 ml/min 45.2 ml/min Estimated GFR () 49.5 58.9 Estimated GFR (Non- 42.7 50.8 BUN/Creatinine Ratio 29.2 38.4 Random Glucose 112 mg/dl 133 mg/dl Calcium Level 7.3 mg/dl 7.5 mg/dl Magnesium Level 1.9 mg/dl 2.1 mg/dl Neutrophils (%) (Auto) 76.5 % Lymphocytes (%) (Auto) 9.8 % Monocytes (%) (Auto) 9.4 % Eosinophils (%) (Auto) 1.6 % Basophils (%) (Auto) 0.0 % Neutrophils # (Auto) 1.95 K/uL Lymphocytes # (Auto) 0.25 K/uL Monocytes # (Auto) 0.24 K/uL Eosinophils # (Auto) 0.04 K/uL Basophils # (Auto) 0.00 K/uL Immature Granulocyte % (Auto) 2.7 % Immature Granulocyte # (Auto) 0.07 K/uL Toxic Granulation 2+ Toxic Vacuolation 1+ Large Platelets 2+ Activated Partial Thromboplast Time 36.6 SECONDS Partial Thromboplastin Ratio 1.4 Phosphorus Level 2.6 mg/dl Assessment and Plan (1) Neutropenic fever Assessment & Plan: neutropenia resolved. afebrile >24h. will narrow abx to imipenem. stop vanco and tig. no more gent. follow urine culture and repeat blood cultures. will need 14 days from first negative, has levaquin allergy Continued [facility] stay due to: abnormal vital signs, multiple IV medications needed Discharge planning: uncertain
[2016-10-02] MEDS ORDERED: POTASSIUM CHLORIDE 20 MEQ TABCR PO ONE (10:00)
[2016-10-02] MEDS: LEVOFLOXACIN 750MG / D5W IV SCH (10:37)
--- NOTE | 2016-10-02 11:03 | DIAGNOSTIC IMAGING REPORT ---
CHEST ONE VIEW PORTABLE CLINICAL HISTORY: 81 years year-old Male presenting with f/u infiltrates, history of prostate cancer. COMPARISON STUDY: 10/01/2016, 09/30/2016, and 09/29/2016. TECHNIQUE: Single portable upright AP view of the chest was obtained. FINDINGS: Cardiomediastinal silhouette remains mildly prominent with a tortuous aorta. Pulmonary vasculature is stable to slightly less prominent. Calcified hilar and mediastinal lymph nodes best appreciated on most recent CT from July 2016. Multiple calcified granulomas noted. Bibasilar and perihilar opacities are stable to slightly decreased from prior. Minimal blunting of the left costophrenic angle may indicate a trace left effusion. No large right effusion. No pneumothorax. Sclerotic lesion in the anterolateral right fifth rib also better appreciated on recent CT. Previously reported left anterior fifth rib sclerotic lesion not visible on this radiograph. Mild gaseous distention of colon again noted. IMPRESSION: 1. Cardiomegaly with stable to slightly decreased pulmonary vascular congestion. 2. Stable to slightly decreased bilateral opacities, which may indicate mild pulmonary edema. Superimposed infection cannot be excluded. Electronically signed by: Ramesh Acuna 10/02/2016 7:16 AM Dictated Date/Time: 10/02/2016 7:01 AM
--- NOTE | 2016-10-02 13:36 | Critical Care Progress Note ---
Critical Care Progress Note Date of Service Oct 02, 2016. Attending Dr. Freedman Subjective No complaint, feels improved Objective Vitals: Maximum temperature 36.8, heart rate 95-140, respiratory rate 19-33, blood pressure 93-102 / 50s -60s, oxygen saturation 93% on 4 L oxygen max. 24 hour fluid balance +1.2 L. No bowel movement since admission Exam: Neuro: CAM assessment negative. Lungs: Bibasilar rales no rhonchi or wheezes. Heart: Regular rate, irregular rhythm. No murmurs. Abdomen: Very mildly distended, firm, nontender, active bowel sounds. Extremities: No significant edema. Assessment & Plan Assessment: 1. Neutropenic sepsis, gram-negative bacteremia status post chemotherapy for metastatic prostate cancer. 2. Septic shock, resolved 3. Atrial fibrillation with rapid ventricular response, treated with digoxin. He has had a mildly elevated troponin as well. This is likely secondary to demand ischemia. Echo with severe hypokinesis to akinesis of the inferior base and septal base, ejection fraction 50%. He has a history of coronary artery disease and is followed by Dr. Nelson as an outpatient. Atenolol has been restarted 4. Neutropenia, continues to improve. He received Neulasta the day after his chemotherapy. 5. Thrombocytopenia, hopefully stabilizing. 6. Acute hypoxemic respiratory failure secondary to acute lung injury from sepsis. 7. Acute kidney injury on chronic kidney disease, improving. Probable ATN. 8. Acute metabolic encephalopathy and delirium. Avoid Benzodiazepines 9. Constipation. 10. Start coumadin, continue heparin 11. History of right lower extremity DVT diagnosed in May of this year. 12. Metastatic prostate cancer, diagnosis in 2004 Plan: Neuro: Avoid benzodiazepines. Treat pain with acetaminophen and Ultram if he can by mouth. This is an outpatient medication for him. Pulmonary: Wean oxygen. Cardiovascular: Restart home atenolol GI: Proton pump inhibitor for prophylaxis, Colace and MiraLAX, nutritional supplements. Infectious disease: Pseudomonas bacteremia, downgraded to Levaquin. Reviewed Levaquin reported allergy, it was an adverse reaction Levaquin still best medication at this point. EKG reviewed QTc 453 we'll obtain daily EKGs. Renal: Gentle diuresis. Discontinue soda bicarbonate infusion. If he is not beginning to eat by later today, gentle IV fluids. Replete potassium. Heme: Restart Coumadin, will be cautious as patient concurrently on Levaquin. Continue heparin for DVT treatment Endocrine: He is on prednisone 10 mg as an outpatient restart home dosing I discussed the case with the hospitalist stable for downgraded out of the ICU. Consults & Procedures Consultants: Infectious disease Dr. Conley Procedures: None Data Medications: Current Inpatient Medications Medications (Trade) Dose Ordered Sig/Bisi Route Start Time Stop Time Status Last Admin Dose Admin Atorvastatin Calcium (Lipitor Tab) 80 mg DAILY PO 09/30/16 08:00 10/30/16 08:59 10/02/16 08:39 80 MG EZETIMIBE (Zetia Tab) 10 mg DAILY PO 09/30/16 08:00 10/30/16 08:59 10/02/16 08:39 10 MG Multivitamins/ Minerals (Multivitamin W/ Minerals Tab) 1 tab DAILY PO 09/30/16 08:00 10/30/16 08:59 10/02/16 08:38 1 TAB Acetaminophen (Tylenol Tab) 650 mg Q4H PRN PO 09/29/16 12:15 10/29/16 12:14 09/29/16 17:06 650 MG Al Hydrox/Mg Hydrox/Simethicone (Maalox Max Susp) 15 ml Q4H PRN PO 09/29/16 12:15 10/29/16 12:14 Magnesium Hydroxide (Milk Of Magnesia Susp) 30 ml Q6H PRN PO 09/29/16 12:15 10/29/16 12:14 Polyethylene (Miralax Powder Packet) 17 gm DAILY PRN PO 09/29/16 12:15 10/29/16 12:14 Bisacodyl (Dulcolax Supp) 10 mg DAILY PRN [place] 10/01/16 16:00 10/31/16 15:59 Acetaminophen (Ofirmev Iv) 1,000 mg Q6H PRN IV 10/01/16 17:30 10/31/16 17:29 10/01/16 20:13 1,000 MG Heparin Sodium/ Dextrose 500 ml @ 19 mls/hr Q24H PRN IV 10/02/16 07:45 11/01/16 07:44 10/02/16 08:45 19 MLS/HR Levofloxacin 750 mg/Prmx 150 ml @ 100 mls/hr Q24H IV 10/02/16 10:00 10/16/16 09:59 10/02/16 10:37 100 MLS/HR Warfarin Sodium (Coumadin Tab) 5 mg DAILY@1600 PO 10/02/16 16:00 11/01/16 15:59 Atenolol (Tenormin Tab) 12.5 mg QAM PO 10/02/16 10:00 11/01/16 09:59 10/02/16 11:09 12.5 MG Prednisone (PredniSONE TAB) 10 mg DAILY PO 10/03/16 09:00 11/02/16 08:59 Vital Signs: Date Time Temp Pulse Resp B/P (MAP) Pulse Ox O2 Delivery O2 Flow Rate FiO2 10/02/16 11:40 Nasal Cannula 2.0 10/02/16 11:30 36.7 96 16 112/76 (88) 94 Nasal Cannula 2.0 10/02/16 07:30 36.3 94 16 121/77 (92) 93 Nasal Cannula 2.0 10/02/16 07:30 Nasal Cannula 2.0 10/02/16 06:17 97 128/95 10/02/16 05:59 36.8 10/02/16 04:04 93 Nasal Cannula 4.0 10/02/16 04:00 97 16 128/95 (106) 93 Nasal Cannula 2.0 10/02/16 03:00 92 29 126/80 (95) 94 Nasal Cannula 2.0 10/02/16 02:01 81 21 117/77 (90) 94 Nasal Cannula 2.0 10/02/16 02:00 83 21 93 Nasal Cannula 2.0 10/02/16 01:48 92 119/85 10/02/16 01:28 36.7 10/02/16 00:49 93 Nasal Cannula 4.0 10/02/16 00:00 92 17 119/85 (96) 94 Nasal Cannula 2.0 10/01/16 23:18 97 120/79 10/01/16 23:01 91 18 107/89 (95) 93 Nasal Cannula 2.0 10/01/16 23:00 94 18 94 Nasal Cannula 2.0 10/01/16 22:01 103 28 113/73 (86) 94 10/01/16 22:00 104 20 94 10/01/16 21:00 97 24 120/79 (93) 93 10/01/16 20:18 96 23 114/71 (85) 93 10/01/16 20:00 36.6 109 32 93 10/01/16 20:00 93 Nasal Cannula 4.0 10/01/16 19:00 94 32 117/78 (91) 94 10/01/16 18:00 36.6 96 24 117/78 (91) 94 Oxymask 2.0 10/01/16 17:26 106 10/01/16 16:00 36.6 96 24 114/78 (90) 94 Oxymask 2.0 10/01/16 16:00 Oxymask 2.0 10/01/16 14:00 36.4 99 21 117/78 (91) 93 Nasal Cannula 2.0 10/01/16 13:53 107 Laboratory Results: Last 24 Hours Test 10/01/16 15:10 10/02/16 04:59 White Blood Count 1.06 K/uL 2.55 K/uL Red Blood Count 3.37 M/uL 3.63 M/uL Hemoglobin 10.8 g/dL 11.5 g/dL Hematocrit 30.9 % 33.3 % Mean Corpuscular Volume 91.7 fL 91.7 fL Mean Corpuscular Hemoglobin 32.0 pg 31.7 pg Mean Corpuscular Hemoglobin Concent 35.0 g/dl 34.5 g/dl RDW Standard Deviation 43.1 fL 43.2 fL RDW Coefficient of Variation 12.9 % 12.8 % Platelet Count 31 K/uL 31 K/uL Mean Platelet Volume 11.5 fL 11.9 fL Prothrombin Time 16.1 SECONDS 13.5 SECONDS Prothromb Time International Ratio 1.5 1.3 Sodium Level 134 mmol/L 135 mmol/L Potassium Level 3.4 mmol/L 3.2 mmol/L Chloride Level 100 mmol/L 102 mmol/L Carbon Dioxide Level 22 mmol/L 21 mmol/L Anion Gap 12.0 mmol/L 12.0 mmol/L Blood Urea Nitrogen 44 mg/dl 50 mg/dl Creatinine 1.50 mg/dl 1.30 mg/dl Est Creatinine Clear Calc Drug Dose 42.4 ml/min 45.2 ml/min Estimated GFR () 49.5 58.9 Estimated GFR (Non- 42.7 50.8 BUN/Creatinine Ratio 29.2 38.4 Random Glucose 112 mg/dl 133 mg/dl Calcium Level 7.3 mg/dl 7.5 mg/dl Magnesium Level 1.9 mg/dl 2.1 mg/dl Neutrophils (%) (Auto) 76.5 % Lymphocytes (%) (Auto) 9.8 % Monocytes (%) (Auto) 9.4 % Eosinophils (%) (Auto) 1.6 % Basophils (%) (Auto) 0.0 % Neutrophils # (Auto) 1.95 K/uL Lymphocytes # (Auto) 0.25 K/uL Monocytes # (Auto) 0.24 K/uL Eosinophils # (Auto) 0.04 K/uL Basophils # (Auto) 0.00 K/uL Immature Granulocyte % (Auto) 2.7 % Immature Granulocyte # (Auto) 0.07 K/uL Toxic Granulation 2+ Toxic Vacuolation 1+ Large Platelets 2+ Activated Partial Thromboplast Time 36.6 SECONDS Partial Thromboplastin Ratio 1.4 Phosphorus Level 2.6 mg/dl
[2016-10-02 15:20] LABS: PARTIAL THROMBOPLASTIN RATIO 1.9
[2016-10-02] MEDS: WARFARIN SOD 5 MG TAB PO SCH (16:06)
--- NOTE | 2016-10-02 16:43 | Family Medicine Progress Note ---
Progress Note Date of Service Oct 02, 2016. Subjective Pt evaluation today including: conversation w/ patient, physical exam PO Intake: good Voiding: jose catheter in place Patient says he feels much better then he did yesterday Having Has occasional chills, but denies any fevers Constitutional: + chills, No fever, No weakness Respiratory: + shortness of breath, No cough Cardiovascular: No chest pain, No edema, No palpitations Abdomen: No pain, No nausea, No vomiting Medications Current Inpatient Medications Medications (Trade) Dose Ordered Sig/Bisi Route Start Time Stop Time Status Last Admin Dose Admin Atorvastatin Calcium (Lipitor Tab) 80 mg DAILY PO 09/30/16 08:00 10/30/16 08:59 10/02/16 08:39 80 MG EZETIMIBE (Zetia Tab) 10 mg DAILY PO 09/30/16 08:00 10/30/16 08:59 10/02/16 08:39 10 MG Multivitamins/ Minerals (Multivitamin W/ Minerals Tab) 1 tab DAILY PO 09/30/16 08:00 10/30/16 08:59 10/02/16 08:38 1 TAB Acetaminophen (Tylenol Tab) 650 mg Q4H PRN PO 09/29/16 12:15 10/29/16 12:14 09/29/16 17:06 650 MG Al Hydrox/Mg Hydrox/Simethicone (Maalox Max Susp) 15 ml Q4H PRN PO 09/29/16 12:15 10/29/16 12:14 Magnesium Hydroxide (Milk Of Magnesia Susp) 30 ml Q6H PRN PO 09/29/16 12:15 10/29/16 12:14 Polyethylene (Miralax Powder Packet) 17 gm DAILY PRN PO 09/29/16 12:15 10/29/16 12:14 Bisacodyl (Dulcolax Supp) 10 mg DAILY PRN [place] 10/01/16 16:00 10/31/16 15:59 Acetaminophen (Ofirmev Iv) 1,000 mg Q6H PRN IV 10/01/16 17:30 10/31/16 17:29 10/01/16 20:13 1,000 MG Heparin Sodium/ Dextrose 500 ml @ 19 mls/hr Q24H PRN IV 10/02/16 07:45 11/01/16 07:44 10/02/16 08:45 19 MLS/HR Levofloxacin 750 mg/Prmx 150 ml @ 100 mls/hr Q24H IV 10/02/16 10:00 10/16/16 09:59 10/02/16 10:37 100 MLS/HR Warfarin Sodium (Coumadin Tab) 5 mg DAILY@1600 PO 10/02/16 16:00 11/01/16 15:59 10/02/16 16:06 5 MG Atenolol (Tenormin Tab) 12.5 mg QAM PO 10/02/16 10:00 11/01/16 09:59 10/02/16 11:09 12.5 MG Prednisone (PredniSONE TAB) 10 mg DAILY PO 10/03/16 09:00 11/02/16 08:59 Objective Physical Exam General Appearance: WD/WN, no apparent distress, + pertinent finding (nasal cannula in place) Respiratory/Chest: chest non-tender, lungs clear, no respiratory distress, no accessory muscle use, + rhonchi (at the bases) Cardiovascular: no edema, no murmur, + irregularly irregular Abdomen: normal bowel sounds, non tender, soft Neurologic/Psychiatric: no motor/sensory deficits, normal mood/affect, oriented x 3 Laboratory Results Results Past 24 Hours Test 10/02/16 04:59 10/02/16 14:55 Range/Units White Blood Count 2.55 4.8-10.8 K/uL Red Blood Count 3.63 4.7-6.1 M/uL Hemoglobin 11.5 14.0-18.0 g/dL Hematocrit 33.3 42-52 % Mean Corpuscular Volume 91.7 80-100 fL Mean Corpuscular Hemoglobin 31.7 25-34 pg Mean Corpuscular Hemoglobin Concent 34.5 32-36 g/dl Platelet Count 31 130-400 K/uL Mean Platelet Volume 11.9 7.4-10.4 fL Neutrophils (%) (Auto) 76.5 % Lymphocytes (%) (Auto) 9.8 % Monocytes (%) (Auto) 9.4 % Eosinophils (%) (Auto) 1.6 % Basophils (%) (Auto) 0.0 % Neutrophils # (Auto) 1.95 1.4-6.5 K/uL Lymphocytes # (Auto) 0.25 1.2-3.4 K/uL Monocytes # (Auto) 0.24 0.11-0.59 K/uL Eosinophils # (Auto) 0.04 0-0.5 K/uL Basophils # (Auto) 0.00 0-0.2 K/uL RDW Standard Deviation 43.2 36.4-46.3 fL RDW Coefficient of Variation 12.8 11.5-14.5 % Immature Granulocyte % (Auto) 2.7 % Immature Granulocyte # (Auto) 0.07 0.00-0.02 K/uL Toxic Granulation 2+ Toxic Vacuolation 1+ Large Platelets 2+ Prothrombin Time 13.5 9.0-12.0 SECONDS Prothromb Time International Ratio 1.3 0.9-1.1 Activated Partial Thromboplast Time 36.6 50.3 21.0-31.0 SECONDS Partial Thromboplastin Ratio 1.4 1.9 Sodium Level 135 136-145 mmol/L Potassium Level 3.2 3.5-5.1 mmol/L Chloride Level 102 98-107 mmol/L Carbon Dioxide Level 21 21-32 mmol/L Anion Gap 12.0 3-11 mmol/L Blood Urea Nitrogen 50 7-18 mg/dl Creatinine 1.30 0.60-1.40 mg/dl Est Creatinine Clear Calc Drug Dose 45.2 ml/min Estimated GFR () 58.9 Estimated GFR (Non- 50.8 BUN/Creatinine Ratio 38.4 10-20 Random Glucose 133 70-99 mg/dl Calcium Level 7.5 8.5-10.1 mg/dl Phosphorus Level 2.6 2.5-4.9 mg/dl Magnesium Level 2.1 1.8-2.4 mg/dl Microbiology Results 10/02/16 MRSA DNA Surveillance Screen - Final, Complete Specimen Negative for MRSA by DNA Probe Assessment and Plan 81 yo m w/ hx of Metastatic Prostate Cancer (2004) s/p chemo 1 wk [employer] p/w nausea , dec'd appetite , abdominal pain, admitted with Pancytopenia secondary to chemotherapy, septic shock, Acute on Chronic Kidney Injury, and confirmed gram negative bacteremia on blood cx Sepsis with septic shock, Gram negative bacteremia in setting of Pancytopenia secondary to Chemotherapy - Blood cx's x2 positive for pseudomonas - pansensitive --> patient switched to levofloxacin IV - follow repeat blood culture and urine culture - follow cbc Afib with RVR - atenolol 12.5 qam - patient on telemetry Pancytopenia - secondary to chemotherapy for Metastatic Prostate Ca - Per infectious Disease, consider G-CSF Hx of DVT on coumadin at home - restarted 5mg daily of coumadin - INR 1.3, continue to monitor CAD s/p stent,Chronic Diastolic HF - Echo (09/30): -Low-normal systolic function, Estimated EF 50% -Severe hypokinesis to akinesis of the inferior base and septal base -Type 1 diastolic dysfunction. -c/w Ezetimibe, Atorvastatin Metastatic Prostate Cancer - dx 2004 -s/p chemotherapy 1 wk [employer] - patient on 10mg prednisone DVT Proph - warfarin PTOT Code - FULL Resident Physician Supervision Note: I was present with PGY1 Dr. Koffi Flores during the history and exam. I discussed the case with the resident and agree with the findings and plan as documented in the note. Any exceptions or clarifications are listed here: none. Pt feels better today. Pt is off pressors. Prior to admission he states he had urinary frequency but no hesitancy or dysuria. He cont w/ abd pain in multiple locations. VSS afebrile gen -nontoxic, NAD mouth - mild mucositis heart - irregular, mildly tachy lungs - scant rales bases, no increased WOB abd - soft, tender high epigastric area, slightly in the RUQ, and also periumbilical ext - no edema admission blood cx's + for pseudomonas, sens to cipro/levaquin urine cx - diphtherioids repeat blood cx's neg ANC now >2000 WBC improved platelets 31 Cr 1.3 K 3.2 A/P: 1. septic shock 2nd to pseudomonas - source unclear. 2. pancytopenia 2nd to chemotherapy for prostate ca. 3. stage 4 prostate ca. 4. sepsis-associated ATN leading to acute kidney injury. 5. thrombocytopenia. 6. hypokalemia. 7. neutropenia - resolved. 8. new-onset a. fib. 9. +troponin - probably type 2 [place] / myocardial demand ischemia in setting of # 1. 10. acute/chronic systolic/diastolic CHF - improved. 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 agree with levaquin IV and at least 2 weeks of Rx. follow repeat blood cx's. cont BB for rate control for a. fib. replete K. daily CBC, BMP. recommend prostate exam to r/o prostatitis as cause of bacteremia. if this is not the source then GI/intra-abdominal source will need to be ruled out; potential culprits - gall bladder, kidney, etc. may need CT abd/pelvis. ok to transition to telemetry unit. updated Documented By: Gavin Luu MD Continued [facility] stay due to: multiple IV medications needed
[2016-10-02] MEDS ORDERED: MAGIC MOUTHWASH PO SCH (17:15)
[2016-10-02] MEDS: DEXAMETHASONE CONC SOLN 3.75 MG, NYSTATIN SUSP 30 ML, DiphenhydrAMINE HCL SYRUP 300 MG,... PO SCH ×5 (20:05)
[2016-10-03] VITALS (8 sets, daily range): BP systolic 91–140; BP diastolic 58–76; PULSE 78–105; TEMP 36.3–36.6; O2SAT 94–96
[2016-10-03] MEDS: DEXAMETHASONE CONC SOLN 3.75 MG, NYSTATIN SUSP 30 ML, DiphenhydrAMINE HCL SYRUP 300 MG,... PO SCH ×20 (05:48→20:26)
[2016-10-03 06:08] LABS: INR 1.6 (0.9-1.1); PARTIAL THROMBOPLASTIN RATIO 2.4; PROTHROMBIN TIME (PATIENT) 17.4 SECONDS (9.0-12.0)
[2016-10-03 06:14] LABS: CALCIUM 7.7 mg/dl (8.5-10.1); CREATININE 1.1 mg/dl (0.60-1.40); POTASSIUM 3.1 mmol/L (3.5-5.1)
[2016-10-03 06:19] LABS: BASO % 0.4 %; BASO ABS # 0.03 K/uL (0-0.2); COMPLETE YES; ECHINOCYTES 1+; GIANT PLATELETS 2+; HEMATOCRIT 33.7 % (42-52); IG% 3.2 %; LYMPH % 7.8 %; MEAN CELL VOLUME 93.4 fL (80-100); MEAN CORPUSCULAR HEMOGLOBIN 32.7 pg (25-34); MEAN PLATELET VOLUME 12.5 fL (7.4-10.4); MONO % 1.3 %; NEUT % 87.3 %; PLATELET COUNT 32 K/uL (130-400); PLT ESTIMATE SIGNIFIC DECREASED; RED BLOOD COUNT 3.61 M/uL (4.7-6.1); TOXIC GRANULATION 1+; VACUOLIZATION 1+; WHITE BLOOD COUNT 7.73 K/uL (4.8-10.8)
[2016-10-03] MEDS: ATORVASTATIN 40 MG TAB PO SCH (08:34)
[2016-10-03] MEDS: EZETIMIBE 10MG TAB PO SCH (08:34)
[2016-10-03] MEDS: CEROVITE ADV FORMULA TAB PO SCH (08:34)
[2016-10-03] MEDS: ACETAMINOPHEN 1000 MG/100 ML IV IV PRN (08:40)
[2016-10-03] MEDS ORDERED: VANCOMYCIN TROUGH ONE (09:30)
[2016-10-03] MEDS: HEPARIN 25,000 UNIT/500ML D5W 500 ML IV PRN (09:55)
[2016-10-03] MEDS: LEVOFLOXACIN 750MG / D5W IV SCH (10:14)
[2016-10-03] MEDS: POTASSIUM CHLORIDE 20 MEQ TABCR PO SCH ×3 (10:15→20:27)
--- NOTE | 2016-10-03 10:59 | Family Medicine Progress Note ---
Progress Note Date of Service Oct 03, 2016. Subjective Pt evaluation today including: conversation w/ patient, conversation w/ family , physical exam Pain: minimal PO Intake: good Voiding: no voiding problems Patient feeling well today decreased appetite. drinking well and had jose catheter removed this morning, still has not urinated Denies any fevers, chills or sweats Unable to wean off 2L of oxygen Had a few semi formed stools overnight Constitutional: No fever, No chills, No sweats Eyes: No worsening of vision Respiratory: + cough (dry), + shortness of breath, + dyspnea on exertion, No sputum Cardiovascular: No chest pain, No edema, No palpitations Abdomen: + diarrhea, No pain, No nausea, No vomiting, No constipation Musculoskeletal: No joint pain, No muscle pain, No swelling Male : No dysuria, No urinary frequency, No incontinence Medications Current Inpatient Medications Medications (Trade) Dose Ordered Sig/Bisi Route Start Time Stop Time Status Last Admin Dose Admin Atorvastatin Calcium (Lipitor Tab) 80 mg DAILY PO 09/30/16 08:00 10/30/16 08:59 10/03/16 08:34 80 MG EZETIMIBE (Zetia Tab) 10 mg DAILY PO 09/30/16 08:00 10/30/16 08:59 10/03/16 08:34 10 MG Multivitamins/ Minerals (Multivitamin W/ Minerals Tab) 1 tab DAILY PO 09/30/16 08:00 10/30/16 08:59 10/03/16 08:34 1 TAB Acetaminophen (Tylenol Tab) 650 mg Q4H PRN PO 09/29/16 12:15 10/29/16 12:14 09/29/16 17:06 650 MG Al Hydrox/Mg Hydrox/Simethicone (Maalox Max Susp) 15 ml Q4H PRN PO 09/29/16 12:15 10/29/16 12:14 Magnesium Hydroxide (Milk Of Magnesia Susp) 30 ml Q6H PRN PO 09/29/16 12:15 10/29/16 12:14 Polyethylene (Miralax Powder Packet) 17 gm DAILY PRN PO 09/29/16 12:15 10/29/16 12:14 Bisacodyl (Dulcolax Supp) 10 mg DAILY PRN [place] 10/01/16 16:00 10/31/16 15:59 Acetaminophen (Ofirmev Iv) 1,000 mg Q6H PRN IV 10/01/16 17:30 10/31/16 17:29 10/03/16 08:40 1,000 MG Heparin Sodium/ Dextrose 500 ml @ 19 mls/hr Q24H PRN IV 10/02/16 07:45 11/01/16 07:44 10/03/16 09:55 19 MLS/HR Levofloxacin 750 mg/Prmx 150 ml @ 100 mls/hr Q24H IV 10/02/16 10:00 10/16/16 09:59 10/03/16 10:14 100 MLS/HR Warfarin Sodium (Coumadin Tab) 5 mg DAILY@1600 PO 10/02/16 16:00 11/01/16 15:59 10/02/16 16:06 5 MG Atenolol (Tenormin Tab) 12.5 mg QAM PO 10/02/16 10:00 11/01/16 09:59 10/03/16 08:34 12.5 MG Prednisone (PredniSONE TAB) 10 mg DAILY PO 10/03/16 09:00 11/02/16 08:59 10/03/16 08:34 10 MG Dexamethasone/ Nystatin/ Diphenhydramine HCl/Sucrose/ Microcrystalline Cellulose/Barcode ACHS PO 10/02/16 21:00 11/01/16 20:59 10/03/16 10:17 5 ML Potassium Chloride (Klor-Con Tab) 40 meq TID PO 10/03/16 10:00 10/03/16 21:01 10/03/16 10:15 40 MEQ Objective Vital Signs Date Time Temp Pulse Resp B/P (MAP) Pulse Ox O2 Delivery O2 Flow Rate FiO2 10/03/16 07:30 Nasal Cannula 2.0 10/03/16 07:30 36.4 105 18 140/76 (97) 94 Nasal Cannula 2.0 10/03/16 04:00 95 Nasal Cannula 2.0 10/03/16 04:00 36.4 85 18 124/72 (89) 95 Nasal Cannula 2.0 10/02/16 23:59 36.4 95 17 127/73 (91) 95 Nasal Cannula 2.0 10/02/16 23:59 95 Nasal Cannula 2.0 10/02/16 20:00 36.4 88 23 104/67 (79) 94 Nasal Cannula 2.0 10/02/16 20:00 94 Nasal Cannula 2.0 10/02/16 13:01 106 17 100/63 (75) 94 10/02/16 13:00 100 18 94 10/02/16 12:01 94 29 100/69 (79) 93 10/02/16 12:00 102 30 95 10/02/16 11:40 Nasal Cannula 2.0 10/02/16 11:30 36.7 96 16 112/76 (88) 94 Nasal Cannula 2.0 10/02/16 11:01 95 18 112/76 (88) 94 10/02/16 11:00 98 24 94 Physical Exam General Appearance: WD/WN, no apparent distress, + pertinent finding (on 2L via nasal cannula) ENT: hearing grossly normal, pharynx normal Neck: supple, thyroid normal, no JVD, no carotid bruits, trachea midline Respiratory/Chest: no respiratory distress, no accessory muscle use, + rhonchi (at the bases) Cardiovascular: regular rate, rhythm, no edema, no gallop, no murmur Abdomen: normal bowel sounds, soft, + tenderness (in the suprapubic, RLQ and LLQ) Extremities: normal range of motion, non-tender, no calf tenderness, normal capillary refill Neurologic/Psychiatric: alert, normal mood/affect, oriented x 3 Skin: normal color, warm/dry, no rash Laboratory Results Results Past 24 Hours Test 10/02/16 14:55 10/03/16 05:40 Range/Units Activated Partial Thromboplast Time 50.3 61.6 21.0-31.0 SECONDS Partial Thromboplastin Ratio 1.9 2.4 White Blood Count 7.73 4.8-10.8 K/uL Red Blood Count 3.61 4.7-6.1 M/uL Hemoglobin 11.8 14.0-18.0 g/dL Hematocrit 33.7 42-52 % Mean Corpuscular Volume 93.4 80-100 fL Mean Corpuscular Hemoglobin 32.7 25-34 pg Mean Corpuscular Hemoglobin Concent 35.0 32-36 g/dl Platelet Count 32 130-400 K/uL Mean Platelet Volume 12.5 7.4-10.4 fL Neutrophils (%) (Auto) 87.3 % Lymphocytes (%) (Auto) 7.8 % Monocytes (%) (Auto) 1.3 % Eosinophils (%) (Auto) 0.0 % Basophils (%) (Auto) 0.4 % Neutrophils # (Auto) 6.75 1.4-6.5 K/uL Lymphocytes # (Auto) 0.60 1.2-3.4 K/uL Monocytes # (Auto) 0.10 0.11-0.59 K/uL Eosinophils # (Auto) 0.00 0-0.5 K/uL Basophils # (Auto) 0.03 0-0.2 K/uL RDW Standard Deviation 44.9 36.4-46.3 fL RDW Coefficient of Variation 13.1 11.5-14.5 % Immature Granulocyte % (Auto) 3.2 % Immature Granulocyte # (Auto) 0.25 0.00-0.02 K/uL Toxic Granulation 1+ Toxic Vacuolation 1+ Platelet Estimate SIGNIFIC DECREASED Giant Platelets 2+ Echinocytes 1+ Prothrombin Time 17.4 9.0-12.0 SECONDS Prothromb Time International Ratio 1.6 0.9-1.1 Sodium Level 138 136-145 mmol/L Potassium Level 3.1 3.5-5.1 mmol/L Chloride Level 106 98-107 mmol/L Carbon Dioxide Level 24 21-32 mmol/L Anion Gap 8.0 3-11 mmol/L Blood Urea Nitrogen 46 7-18 mg/dl Creatinine 1.10 0.60-1.40 mg/dl Est Creatinine Clear Calc Drug Dose 53.5 ml/min Estimated GFR () 72.1 Estimated GFR (Non- 62.2 BUN/Creatinine Ratio 42.0 10-20 Random Glucose 94 70-99 mg/dl Calcium Level 7.7 8.5-10.1 mg/dl Microbiology Results 10/02/16 MRSA DNA Surveillance Screen - Final, Complete Specimen Negative for MRSA by DNA Probe Assessment and Plan 81 yo m w/ hx of Metastatic Prostate Cancer (2004) s/p chemo 1 wk [employer] p/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 Patient tender in the lower abdomen. Still trying to find source of infection. Will do prostate exam this afternoon to check for possible prostatitis. If negative prostate exam then will do CT of abdomen to check for other intraabdominal sources Sepsis with septic shock, Gram negative bacteremia in setting of Pancytopenia secondary to Chemotherapy - Blood cx's x2 positive for pseudomonas - pansensitive --> patient on levofloxacin IV - Urine culture grew diptheroids (likely contaminant) - repeat blood culture negative to date - follow cbc - Prostate possible source? Intraabdominal possible source Afib with RVR - atenolol 12.5 qam - patient on telemetry Pancytopenia - secondary to chemotherapy for Metastatic Prostate Ca - Per infectious Disease, consider G-CSF Hx of DVT on coumadin at home - restarted 5mg daily of coumadin - INR 1.6, continue to monitor CAD s/p stent,Chronic Diastolic HF - Echo (09/30): -Low-normal systolic function, Estimated EF 50% -Severe hypokinesis to akinesis of the inferior base and septal base -Type 1 diastolic dysfunction. -c/w Ezetimibe, Atorvastatin Metastatic Prostate Cancer - dx 2004 -s/p chemotherapy 1 wk [employer]'s [employer] - patient on 10mg prednisone DVT Proph - warfarin PTOT- PT suggest home health, OT suggests patient can go home with Code - FULL Resident Physician Supervision Note: I was present with PGY1 Dr. Koffi Flores during the history and exam. I discussed the case with the resident and agree with the findings and plan as documented in the note. Any exceptions or clarifications are listed here: none. Pt w/ poor appetite. Tele with NSR overnight. Cont with LLQ pain. Some liquid type stools. No emesis. Denies cough/dyspnea. at bedside. VSS afebrile gen -nontoxic, NAD - but looks tired mouth - mild mucositis is improved; no thrush heart - RRR, s1, s2 lungs - CTA b/l abd - soft, tender LLQ, no peritoneal signs ext - no edema rectal - there was scant amount of gross blood on finger; prostate mildly enlarged; no nodules; no tenderness; no bogginess admission blood cx's + for pseudomonas, sens to cipro/levaquin urine cx - diphtherioids repeat blood cx's neg WBC/neutrophils normal platelets 32 Cr 1.1 K 3.1 A/P: 1. septic shock 2nd to pseudomonas - source unclear. NO evidence of prostatitis on examination today. 2. pancytopenia 2nd to chemotherapy for prostate ca - leukopenia/neutropenia resolved. 3. stage 4 prostate ca. 4. sepsis-associated ATN leading to acute kidney injury. Resolved. 5. thrombocytopenia. Due to #1? recent chemo? combination of factors? daily CBC. 6. hypokalemia. Ongoing. 7. neutropenia - resolved. 8. new-onset a. fib. Resolved. 9. +troponin - probably type 2 [place] / myocardial demand ischemia in setting of # 1. 10. acute/chronic systolic/diastolic CHF - improved/appears euvolemic. 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 12. LLQ abd pain. Source for septic shock still unknown. He continues with LLQ abd pain. Will obtain CT abd/pelvis with IV/PO contrast to r/o diverticulitis and other intra-abdominal process that could have been the cause for this. Replace K. Daily labs. Cont IV levaquin - minimum 2 weeks of Rx. Can ultimately transition to PO levaquin. updated at bedside Documented By: Gavin Luu MD Continued [facility] stay due to: multiple IV medications needed
[2016-10-03] MEDS ORDERED: OPTIRAY 320 IV PRN (14:30)
--- NOTE | 2016-10-03 17:09 | DIAGNOSTIC IMAGING REPORT ---
CT SCAN OF THE ABDOMEN AND PELVIS WITH IV CONTRAST CLINICAL HISTORY: Lower abdominal pain. History of prostate cancer. COMPARISON STUDY: Abdominal CT dated 08/14/2016. TECHNIQUE: Following the IV administration of 116 cc of Optiray 320, CT scan of the abdomen and pelvis is performed from the lung bases to the proximal femora. Images are reviewed in the axial, sagittal, and coronal planes. IV contrast was administered without complication. Automated dose control exposure was utilized. CT DOSE: 459.72 mGy.cm FINDINGS: Lung bases: The heart is time normal in size and without pericardial effusion. The coronary arteries are densely calcified. Numerous calcified granulomas are seen at the lung bases.There are small to moderate pleural effusions with bibasilar atelectasis. Liver: The contrast-enhanced liver is normal in size, contour, and attenuation. There is no intrahepatic biliary ductal dilatation. The hepatic veins and portal veins are patent. Gallbladder: The gallbladder is distended and otherwise normal in appearance. No pericholecystic inflammation is seen. Spleen: Normal in size and attenuation. There are numerous calcified splenic granulomas. Pancreas: Atrophic and grossly unremarkable. Adrenal glands: Unremarkable. Kidneys: The contrast enhanced kidneys demonstrate cortical atrophy and are without hydronephrosis. The kidneys enhance symmetrically. There is a 5.7 cm cyst arising from the lower pole of the left kidney. Additional subcentimeter cortical hypodensities also likely represent cysts but are too small for definitive characterization. Abdominal vasculature: The abdominal aorta is normal in course and caliber noting advanced atherosclerotic calcification. Bowel: There is no bowel obstruction. There is advanced colonic diverticulosis. There is a long segment of thick-walled and edematous: Involving prominently the descending and proximal sigmoid. There is surrounding inflammatory change and pericolic fluid. No evidence of abscess is seen. The appendix is well-visualized and normal. There is diverticulosis of the distal small bowel. Peritoneum: There is no intraperitoneal free air or abdominal ascites. Trace fluid is seen in the left paracolic gutter. There is a small fat-containing umbilical hernia. Lymphadenopathy: Retroperitoneal lymphadenopathy is again noted. This is similar appearance to 08/14/2016 examination. A left periaortic node on image #135 measures 2.2 x 2.2 cm. A more inferiorly located node on image #164 measures 1.8 x 2.0 cm. There is no iliac chain, pelvic sidewall, or mesenteric lymphadenopathy. Pelvic viscera: The prostate gland is diminutive and contains numerous brachytherapy beads. The bladder is normal as visualized. Skeletal structures: The skeletal structures are osteopenic. A large sclerotic lesion is partially visualized in the anterior right fifth rib. Minimal sclerotic change with a chronic fracture is also noted in the anterior left fifth rib. No additional osteoblastic lesions are identified. IMPRESSION: 1. There is a long segment of thick-walled and edematous left colon, predominantly involving the descending colon and the proximal sigmoid. There is associated pericolonic inflammation and trace fluid. Significant diverticular disease is seen in this region, and this could represent acute diverticulitis versus colitis. Colitis is slightly favored given the length of involvement. No intraperitoneal free air is seen and there is no evidence of abscess. 2. There has been no significant change in retroperitoneal lymphadenopathy when compared to the 08/14/2016 examination. This remains consistent with metastatic disease. 3. Sclerotic bone lesions are unchanged. No evidence of progressive osseous metastatic disease is identified. 4. Small to moderate pleural effusions with associated atelectasis. These are new from previous. 5. Additional changes as detailed above. Electronically signed by: Ramon Ruggiero M.D. 10/03/2016 5:08 PM Dictated Date/Time: 10/03/2016 4:58 PM
[2016-10-03] MEDS: WARFARIN SOD 5 MG TAB PO SCH (17:23)
[2016-10-03] MEDS: METRONIDAZOLE / NSS 500 MG in PREMIXED NSS 100 ML IV SCH (20:19)
[2016-10-04] VITALS (12 sets, daily range): BP systolic 104–139; BP diastolic 67–86; PULSE 90–104; TEMP 36.3–36.8; O2SAT 92–98
[2016-10-04] MEDS: METRONIDAZOLE / NSS 500 MG in PREMIXED NSS 100 ML IV SCH ×3 (03:58→18:09)
[2016-10-04] MEDS: DEXAMETHASONE CONC SOLN 3.75 MG, NYSTATIN SUSP 30 ML, DiphenhydrAMINE HCL SYRUP 300 MG,... PO SCH ×20 (07:00→19:54)
[2016-10-04 08:14] LABS: INR 2.7 (0.9-1.1); PROTHROMBIN TIME (PATIENT) 30.3 SECONDS (9.0-12.0)
[2016-10-04 08:19] LABS: BUN/CREATININE RATIO 29.1 (10-20); CREATININE 1.1 mg/dl (0.60-1.40); MAGNESIUM 2.5 mg/dl (1.8-2.4); POTASSIUM 4.2 mmol/L (3.5-5.1)
[2016-10-04 08:35] LABS: HEMATOCRIT 36.3 % (42-52); MEAN CORPUSCULAR HEMOGLOBIN 32.5 pg (25-34); MEAN CORPUSCULAR HGB CONC 34.2 g/dl (32-36); MEAN PLATELET VOLUME 12.8 fL (7.4-10.4); PLATELET COUNT 43 K/uL (130-400); RED BLOOD COUNT 3.82 M/uL (4.7-6.1); WHITE BLOOD COUNT 12.28 K/uL (4.8-10.8)
[2016-10-04 08:37] LABS: DOHLE BODIES 1+; ECHINOCYTES 1+; LYMPH ABS # 0.32 K/uL (1.2-3.4); LYMPHOCYTE % 2.6 %; MYELOCYTE % 0.9 %; NEUTROPHILS % 93.1 %; TOXIC GRANULATION 3+; VACUOLIZATION 1+
[2016-10-04 08:42] LABS: COMPLETE YES
[2016-10-04] MEDS: EZETIMIBE 10MG TAB PO SCH (08:48)
[2016-10-04] MEDS: ATORVASTATIN 40 MG TAB PO SCH (08:48)
[2016-10-04] MEDS: CEROVITE ADV FORMULA TAB PO SCH (08:48)
[2016-10-04] MEDS: ACETAMINOPHEN 1000 MG/100 ML IV IV PRN ×2 (08:53→22:29)
[2016-10-04] MEDS: LEVOFLOXACIN 750MG / D5W IV SCH (09:43)
--- NOTE | 2016-10-04 11:02 | Family Medicine Progress Note ---
Progress Note Date of Service Oct 04, 2016. Subjective Pt evaluation today including: conversation w/ patient, physical exam, conversation w/ databases software consultant, review of inpatient medication list Pain: none PO Intake: clear liquid diet Patient feeling better then yesterday Found to have colitis on CT of abdomen Tolerating clear liquid diet Two bm yesterday evening-->dark in colour w/out bright red blood No abdominal pain, nausea, vomiting, fevers, chills Had a 22 and 15 run of SVT overnight Constitutional: No fever, No chills, No sweats Respiratory: + cough, No sputum, No wheezing, No shortness of breath Cardiovascular: No chest pain, No edema, No palpitations Abdomen: + GI bleeding, No pain, No nausea, No vomiting, No diarrhea, No constipation Medications Current Inpatient Medications Medications (Trade) Dose Ordered Sig/Bisi Route Start Time Stop Time Status Last Admin Dose Admin Atorvastatin Calcium (Lipitor Tab) 80 mg DAILY PO 09/30/16 08:00 10/30/16 08:59 10/04/16 08:48 80 MG EZETIMIBE (Zetia Tab) 10 mg DAILY PO 09/30/16 08:00 10/30/16 08:59 10/04/16 08:48 10 MG Multivitamins/ Minerals (Multivitamin W/ Minerals Tab) 1 tab DAILY PO 09/30/16 08:00 10/30/16 08:59 10/04/16 08:48 1 TAB Acetaminophen (Tylenol Tab) 650 mg Q4H PRN PO 09/29/16 12:15 10/29/16 12:14 09/29/16 17:06 650 MG Al Hydrox/Mg Hydrox/Simethicone (Maalox Max Susp) 15 ml Q4H PRN PO 09/29/16 12:15 10/29/16 12:14 Magnesium Hydroxide (Milk Of Magnesia Susp) 30 ml Q6H PRN PO 09/29/16 12:15 10/29/16 12:14 Polyethylene (Miralax Powder Packet) 17 gm DAILY PRN PO 09/29/16 12:15 10/29/16 12:14 Bisacodyl (Dulcolax Supp) 10 mg DAILY PRN [place] 10/01/16 16:00 10/31/16 15:59 Acetaminophen (Ofirmev Iv) 1,000 mg Q6H PRN IV 10/01/16 17:30 10/31/16 17:29 10/04/16 08:53 1,000 MG Heparin Sodium/ Dextrose 500 ml @ 16 mls/hr Q24H PRN IV 10/02/16 07:45 11/01/16 07:44 10/03/16 09:55 19 MLS/HR Levofloxacin 750 mg/Prmx 150 ml @ 100 mls/hr Q24H IV 10/02/16 10:00 10/16/16 09:59 10/04/16 09:43 100 MLS/HR Warfarin Sodium (Coumadin Tab) 5 mg DAILY@1600 PO 10/02/16 16:00 11/01/16 15:59 10/03/16 17:23 5 MG Atenolol (Tenormin Tab) 12.5 mg QAM PO 10/02/16 10:00 11/01/16 09:59 Future Hold 10/03/16 08:34 12.5 MG Prednisone (PredniSONE TAB) 10 mg DAILY PO 10/03/16 09:00 11/02/16 08:59 10/04/16 08:48 10 MG Dexamethasone/ Nystatin/ Diphenhydramine HCl/Sucrose/ Microcrystalline Cellulose/Barcode ACHS PO 10/02/16 21:00 11/01/16 20:59 10/04/16 07:00 5 ML Ioversol (Optiray 320) 100 ml UD PRN IV 10/03/16 14:30 10/07/16 14:29 Metronidazole 500 mg/Prmx 100 ml @ 100 mls/hr Q8H IV 10/03/16 19:00 10/13/16 18:59 10/04/16 03:58 100 MLS/HR Objective Vital Signs Date Time Temp Pulse Resp B/P (MAP) Pulse Ox O2 Delivery O2 Flow Rate FiO2 10/04/16 07:35 96 Room Air 10/04/16 07:24 36.4 93 18 124/81 (95) 96 Nasal Cannula 1.5 10/04/16 04:00 Room Air 10/04/16 04:00 36.8 94 20 135/82 (99) 97 Room Air 10/04/16 00:35 36.8 90 22 133/75 (94) 96 Nasal Cannula 2.0 10/04/16 00:00 Room Air 10/03/16 20:16 36.4 91 22 114/76 (89) 95 Room Air 10/03/16 20:00 94 Nasal Cannula 1.0 10/03/16 16:00 96 Nasal Cannula 1.0 10/03/16 15:50 36.5 86 16 102/67 (79) 96 Nasal Cannula 1.0 10/03/16 12:45 36.3 89 20 91/58 (69) 96 Nasal Cannula 2.0 10/03/16 12:00 Nasal Cannula 2.0 10/03/16 11:14 36.6 78 20 102/64 (77) 94 Nasal Cannula 2.0 10/03/16 11:11 Nasal Cannula 2.0 Physical Exam General Appearance: WD/WN, no apparent distress Respiratory/Chest: lungs clear, no respiratory distress, no accessory muscle use Cardiovascular: regular rate, rhythm, no murmur Abdomen: no organomegaly, no pulsatile mass, + tenderness (suprapubic and LLQ) , + pertinent finding (bowel sounds audible but decreased) Extremities: no pedal edema, no calf tenderness, normal capillary refill Neurologic/Psychiatric: alert, normal mood/affect, oriented x 3 Laboratory Results Results Past 24 Hours Test 10/04/16 07:23 Range/Units White Blood Count 12.28 4.8-10.8 K/uL Red Blood Count 3.82 4.7-6.1 M/uL Hemoglobin 12.4 14.0-18.0 g/dL Hematocrit 36.3 42-52 % Mean Corpuscular Volume 95.0 80-100 fL Mean Corpuscular Hemoglobin 32.5 25-34 pg Mean Corpuscular Hemoglobin Concent 34.2 32-36 g/dl Platelet Count 43 130-400 K/uL Mean Platelet Volume 12.8 7.4-10.4 fL RDW Standard Deviation 47.4 36.4-46.3 fL RDW Coefficient of Variation 13.6 11.5-14.5 % Nucleated RBC Absolute Count (auto) 0.02 0-0 K/uL Neutrophils % (Manual) 93.1 % Lymphocytes % (Manual) 2.6 % Monocytes % (Manual) 1.7 % Myelocytes % 0.9 % Promyelocytes % 1.7 % Nucleated Red Blood Cells % 0.2 % Neutrophils # (Manual) 11.43 1.4-6.5 K/uL Total Absolute Neutrophils 11.43 1.4-6.5 K/uL Lymphocytes # (Manual) 0.32 1.2-3.4 K/uL Total Absolute Lymphocytes 0.32 1.2-3.4 K/uL Monocytes # (Manual) 0.21 0.11-0.59 K/uL Myelocytes # 0.11 0-0 K/uL Promyelocytes # 0.21 0-0 K/uL Blood Smear Review Toxic Granulation 3+ Toxic Vacuolation 1+ Dohle Bodies 1+ Echinocytes 1+ Prothrombin Time 30.3 9.0-12.0 SECONDS Prothromb Time International Ratio 2.7 0.9-1.1 Activated Partial Thromboplast Time 78.4 21.0-31.0 SECONDS Partial Thromboplastin Ratio 3.0 Sodium Level 139 136-145 mmol/L Potassium Level 4.2 3.5-5.1 mmol/L Chloride Level 107 98-107 mmol/L Carbon Dioxide Level 25 21-32 mmol/L Anion Gap 7.0 3-11 mmol/L Blood Urea Nitrogen 32 7-18 mg/dl Creatinine 1.10 0.60-1.40 mg/dl Est Creatinine Clear Calc Drug Dose 53.5 ml/min Estimated GFR () 72.1 Estimated GFR (Non- 62.2 BUN/Creatinine Ratio 29.1 10-20 Random Glucose 91 70-99 mg/dl Calcium Level 8.0 8.5-10.1 mg/dl Magnesium Level 2.5 1.8-2.4 mg/dl Assessment and Plan 81 yo m w/ 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 Patient tender in the lower abdomen. Prostate exam was unremarkable yesterday but CT scan of abdomen showed colitis in the descending colon and sigmoid colon. Patient with 2 prolonged episodes of VT overnight Sepsis with septic shock, Gram negative bacteremia in setting of Pancytopenia secondary to Chemotherapy - Blood cx's x2 positive for pseudomonas - pansensitive --> patient on levofloxacin IV - Urine culture grew diptheroids (likely contaminant) - repeat blood culture negative to date Colitis of descending colon - found on CT - likely ischaemic due to septic shock - start flagyl for anaerobic coverage - stop coumadin - clear liquid diet Afib with RVR - restarted atenolol - patient on telemetry - found to have 22 beat and 15 beat of VT overnight, spoke to cards, suggest ordering trop and restarting atenolol Pancytopenia - secondary to chemotherapy for Metastatic Prostate Ca - Per infectious Disease, consider G-CSF Hx of DVT on 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 Koffi Flores during the history and exam. I discussed the case with the resident and agree with the findings and plan as documented in the note. Any exceptions or clarifications are listed here: none. Pt feels better today. Abd pain resolved. Stools cont to be liquid but no gross blood. Tolerating clears; this does not cause abd pain. No cough; no sob. Tele - 2 runs of non-sustained VT. VSS afebrile gen -nontoxic, NAD - looks better mouth - mild mucositis nearly resolved heart - RRR, s1, s2 lungs - CTA b/l abd - soft, NONTENDER TODAY in all locations ext - no edema platelets 43 Cr 1.1 K normal WBC 12 A/P: 1. septic shock 2nd to pseudomonas - source - probably GI. NO evidence of prostatitis on examination and urine cx did not show pseudomonas (diptherioids) . ID following; they recommend 14 days of rx starting with day #1 on 10/01/16. Thus , #5/14 of levaquin. Cont flagyl to cover the colitis. 2. pancytopenia 2nd to chemotherapy for prostate ca - leukopenia/neutropenia resolved. Platelets improving. H/H stable. 3. stage 4 prostate ca s/p recent chemo. 4. sepsis-associated ATN leading to acute kidney injury. Resolved. 5. thrombocytopenia. Due to #1? recent chemo? combination of factors? daily CBC. IMPROVING. 6. hypokalemia - resolved. 7. neutropenia - resolved. 8. new-onset a. fib. Resolved. In NSR. 9. +troponin - probably type 2 NM / myocardial demand ischemia in setting of # 1. 10. acute/chronic systolic/diastolic CHF - compensated. 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 Now back on daily po prednisone. 12. LLQ abd pain - 2nd to colitis - resolved. 13. non-sustained V-tach x 2 runs overnight - NO SYMPTOMS. He does have wall motion abnormalities on recent echo and certainly ischemia could be contributing as he has known CAD. however, poor candidate for any invasive cardiac testing at this time. Monitor carefully. 14. h/o DVT - INR 2.7 today, was 1.6 yesterday; rapid INR rise. HOLD COUMADIN TODAY; repeat INR tomorrow am. d/c heparin drip. overall improved can likely advance diet tomorrow am can likely transition to PO levaquin soon daily CBC, BMP likely source for pseudomonas - GI (colitis, as seen on CT yesterday). updated at bedside continue telemetry Documented By: Gavin Luu MD Continued [facility] stay due to: multiple IV medications needed
--- NOTE | 2016-10-04 13:08 | Progress Note ---
Subjective Date of Service: Oct 04, 2016. Subjective Pt evaluation today including: conversation w/ patient, conversation w/ family , physical exam, chart review, lab review Patient is seen in follow-up visit. He has been transferred from the intensive care unit. His white blood cell count has recovered and this morning is 12 0.2. His cultures from the grew Pseudomonas. His repeat blood cultures from the 01 of October are negative to date. He remains on IV Levaquin renally dose. He is also on Flagyl empirically and prednisone. He has been afebrile. On my examination today he does have minimal abdominal pain but states overall this is improving. He is also is complaining of loose stool but states overall it is improving. C diff is pending. He did undergo a CT scan of the abdomen and pelvis yesterday which showed some left-sided colitis. It is unclear if this is related to a GI translocation an complication with chemotherapy or if there is infectious colitis such as C diff. I he has not submitted as specimen as of yet. He did have some mucositis which has resolved. He is tolerating antibiotics well. He is eating but only on clear liquids at this time. He denies any nausea or vomiting. He has no chest pain cough shortness breath. He has had his Burdick removed but is still having difficulty with urination. All remaining review of systems are reviewed and are unremarkable except for as noted above. Problem List Medical Problems: (1) Acute renal failure Status: Acute (2) Hyperkalemia Status: Acute (3) Hypotension Status: Acute (4) Severe neutropenia Status: Acute (5) Subtherapeutic international normalized ratio (INR) Status: Acute Objective Vital Signs Date Time Temp Pulse Resp B/P (MAP) Pulse Ox O2 Delivery O2 Flow Rate FiO2 10/04/16 11:52 98 Room Air 10/04/16 11:50 36.3 91 18 132/82 (99) 98 Room Air 10/04/16 10:19 104 96 10/04/16 07:35 96 Room Air 10/04/16 07:24 36.4 93 18 124/81 (95) 96 Nasal Cannula 1.5 10/04/16 04:00 Room Air 10/04/16 04:00 36.8 94 20 135/82 (99) 97 Room Air 10/04/16 00:35 36.8 90 22 133/75 (94) 96 Nasal Cannula 2.0 10/04/16 00:00 Room Air 10/03/16 20:16 36.4 91 22 114/76 (89) 95 Room Air 10/03/16 20:00 94 Nasal Cannula 1.0 10/03/16 16:00 96 Nasal Cannula 1.0 10/03/16 15:50 36.5 86 16 102/67 (79) 96 Nasal Cannula 1.0 Physical Exam General Appearance: WD/WN, no apparent distress Eyes: normal inspection, EOMI Neck: supple Respiratory/Chest: lungs clear, normal breath sounds, no respiratory distress Cardiovascular: regular rate, rhythm, no edema Abdomen: non tender, soft Extremities: non-tender, normal inspection, no pedal edema Neurologic/Psychiatric: alert, oriented x 3 Skin: normal color Laboratory Results Item Value Date Time Blood Culture - Preliminary Resulted 09/29/16 1750 Blood Pseudomonas Aeruginosa Blood Culture - Final Complete 09/29/16 1758 Blood Pseudomonas Aeruginosa Blood Culture - Preliminary Resulted 10/01/16 0844 Blood NO GROWTH TO DATE. Blood Culture - Preliminary Resulted 10/01/16 0900 Blood NO GROWTH TO DATE. Last 24 Hours Test 10/04/16 07:23 10/04/16 12:28 White Blood Count 12.28 K/uL Red Blood Count 3.82 M/uL Hemoglobin 12.4 g/dL Hematocrit 36.3 % Mean Corpuscular Volume 95.0 fL Mean Corpuscular Hemoglobin 32.5 pg Mean Corpuscular Hemoglobin Concent 34.2 g/dl Platelet Count 43 K/uL Mean Platelet Volume 12.8 fL RDW Standard Deviation 47.4 fL RDW Coefficient of Variation 13.6 % Nucleated RBC Absolute Count (auto) 0.02 K/uL Neutrophils % (Manual) 93.1 % Lymphocytes % (Manual) 2.6 % Monocytes % (Manual) 1.7 % Myelocytes % 0.9 % Promyelocytes % 1.7 % Nucleated Red Blood Cells % 0.2 % Neutrophils # (Manual) 11.43 K/uL Total Absolute Neutrophils 11.43 K/uL Lymphocytes # (Manual) 0.32 K/uL Total Absolute Lymphocytes 0.32 K/uL Monocytes # (Manual) 0.21 K/uL Myelocytes # 0.11 K/uL Promyelocytes # 0.21 K/uL Blood Smear Review Toxic Granulation 3+ Toxic Vacuolation 1+ Dohle Bodies 1+ Echinocytes 1+ Prothrombin Time 30.3 SECONDS Prothromb Time International Ratio 2.7 Activated Partial Thromboplast Time 78.4 SECONDS Partial Thromboplastin Ratio 3.0 Sodium Level 139 mmol/L Potassium Level 4.2 mmol/L Chloride Level 107 mmol/L Carbon Dioxide Level 25 mmol/L Anion Gap 7.0 mmol/L Blood Urea Nitrogen 32 mg/dl Creatinine 1.10 mg/dl Est Creatinine Clear Calc Drug Dose 53.5 ml/min Estimated GFR () 72.1 Estimated GFR (Non- 62.2 BUN/Creatinine Ratio 29.1 Random Glucose 91 mg/dl Calcium Level 8.0 mg/dl Magnesium Level 2.5 mg/dl Troponin I 0.229 ng/ml Assessment and Plan (1) Pseudomonas septicemia Assessment & Plan: At repeat blood cultures have been negative. He will need 14 days of Levaquin from his 1st negative culture which is dated 10/01. This can be transitioned to oral Levaquin when he is able to tolerate p.o.. It is unclear if this is secondary to urinary tract infection or translocation from the GI system. My guess is that it is secondary to GI translocation as he did have mucositis and has inflammation on the CT scan which would make this more likely an urinary tract infection as he did not have significant urinary symptoms and did have a negative UA. However he was profoundly neutropenic and may have had a negative UA because of that. In any event his treatment course will be the same. He will be stable for discharge on oral Levaquin when medically stable. Thank you. (2) Neutropenic fever Assessment & Plan: Resolved Continued [facility] stay due to: multiple IV medications needed Discharge planning: uncertain
[2016-10-04] MEDS: HEPARIN 25,000 UNIT/500ML D5W 500 ML IV PRN (13:38)
[2016-10-04 15:13] LABS: PARTIAL THROMBOPLASTIN RATIO 2.5
[2016-10-04] MEDS: METRONIDAZOLE 0.75% TOPICAL GEL 45 GM TUBE TOP SCH (16:00)
[2016-10-05] VITALS (9 sets, daily range): BP systolic 123–147; BP diastolic 76–88; PULSE 79–101; TEMP 36.3–37; O2SAT 94–97
[2016-10-05] MEDS: METRONIDAZOLE / NSS 500 MG in PREMIXED NSS 100 ML IV SCH ×2 (03:11→11:00)
[2016-10-05 07:06] LABS: HEMATOCRIT 36.3 % (42-52); MEAN CORPUSCULAR HEMOGLOBIN 33.3 pg (25-34); MEAN CORPUSCULAR HGB CONC 34.7 g/dl (32-36); RED BLOOD COUNT 3.78 M/uL (4.7-6.1); WHITE BLOOD COUNT 15.54 K/uL (4.8-10.8)
[2016-10-05 07:10] LABS: MEAN PLATELET VOLUME 11.5 fL (7.4-10.4); PLATELET COUNT 55 K/uL (130-400)
[2016-10-05 07:31] LABS: BASO % 0.5 %; BASO ABS # 0.07 K/uL (0-0.2); COMPLETE YES; ECHINOCYTES 2+; IG% 6.6 %; LYMPH % 7.1 %; LYMPH ABS # 1.11 K/uL (1.2-3.4); MONO % 5.3 %; NEUT % 80.5 %; TOXIC GRANULATION 1+
[2016-10-05] MEDS: EZETIMIBE 10MG TAB PO SCH (07:49)
[2016-10-05] MEDS: CEROVITE ADV FORMULA TAB PO SCH (07:49)
[2016-10-05] MEDS: METRONIDAZOLE 0.75% TOPICAL GEL 45 GM TUBE TOP SCH (07:49)
[2016-10-05] MEDS: ATORVASTATIN 40 MG TAB PO SCH (07:49)
[2016-10-05] MEDS: DEXAMETHASONE CONC SOLN 3.75 MG, NYSTATIN SUSP 30 ML, DiphenhydrAMINE HCL SYRUP 300 MG,... PO SCH ×20 (07:52→20:45)
[2016-10-05 08:57] LABS: PROTHROMBIN TIME (PATIENT) 44.1 SECONDS (9.0-12.0)
[2016-10-05 09:04] LABS: INR 3.9 (0.9-1.1)
[2016-10-05] MEDS: LEVOFLOXACIN 750MG / D5W IV SCH (09:21)
--- NOTE | 2016-10-05 15:10 | Family Medicine Progress Note ---
Progress Note Date of Service Oct 05, 2016. Subjective Pt evaluation today including: conversation w/ patient, physical exam, chart review, conversation w/ organizational effectiveness consultant, review of inpatient medication list Pain: none PO Intake: tolerating clear liquid diet Voiding: no voiding problems Patient feel much better today Had a long walk last night Nose swelling and redness have improved Had a loose bm last night that was dark in colour, no bright red blood Tolerating clear liquid diet well No nausea, vomiting, abdominal pain Constitutional: No fever, No chills, No sweats Respiratory: No cough, No wheezing, No shortness of breath Cardiovascular: No chest pain, No edema, No palpitations Abdomen: + diarrhea, No pain, No nausea, No vomiting, No constipation Musculoskeletal: No joint pain, No muscle pain Male : No dysuria, No urinary frequency, No incontinence, No slowing stream, No hematuria Heme: No abnormal bleeding/bruising, No clotting problems, No night sweats Skin: No rash, No itch, No new/changing skin lesions Medications Current Inpatient Medications Medications (Trade) Dose Ordered Sig/Bisi Route Start Time Stop Time Status Last Admin Dose Admin Atorvastatin Calcium (Lipitor Tab) 80 mg DAILY PO 09/30/16 08:00 10/30/16 08:59 10/05/16 07:49 80 MG EZETIMIBE (Zetia Tab) 10 mg DAILY PO 09/30/16 08:00 10/30/16 08:59 10/05/16 07:49 10 MG Multivitamins/ Minerals (Multivitamin W/ Minerals Tab) 1 tab DAILY PO 09/30/16 08:00 10/30/16 08:59 10/05/16 07:49 1 TAB Acetaminophen (Tylenol Tab) 650 mg Q4H PRN PO 09/29/16 12:15 10/29/16 12:14 09/29/16 17:06 650 MG Al Hydrox/Mg Hydrox/Simethicone (Maalox Max Susp) 15 ml Q4H PRN PO 09/29/16 12:15 10/29/16 12:14 Magnesium Hydroxide (Milk Of Magnesia Susp) 30 ml Q6H PRN PO 09/29/16 12:15 10/29/16 12:14 Polyethylene (Miralax Powder Packet) 17 gm DAILY PRN PO 09/29/16 12:15 10/29/16 12:14 Bisacodyl (Dulcolax Supp) 10 mg DAILY PRN CA 10/01/16 16:00 10/31/16 15:59 Acetaminophen (Ofirmev Iv) 1,000 mg Q6H PRN IV 10/01/16 17:30 10/31/16 17:29 10/04/16 22:29 1,000 MG Levofloxacin 750 mg/Prmx 150 ml @ 100 mls/hr Q24H IV 10/02/16 10:00 10/16/16 09:59 10/05/16 09:21 100 MLS/HR Warfarin Sodium (Coumadin Tab) 5 mg DAILY@1600 PO 10/02/16 16:00 11/01/16 15:59 Future Hold 10/03/16 17:23 5 MG Atenolol (Tenormin Tab) 12.5 mg QAM PO 10/02/16 10:00 11/01/16 09:59 Future hold 10/05/16 07:49 12.5 MG Prednisone (PredniSONE TAB) 10 mg DAILY PO 10/03/16 09:00 11/02/16 08:59 10/05/16 07:49 10 MG Dexamethasone/ Nystatin/ Diphenhydramine HCl/Sucrose/ Microcrystalline Cellulose/Barcode ACHS PO 10/02/16 21:00 11/01/16 20:59 10/05/16 11:10 5 ML Ioversol (Optiray 320) 100 ml UD PRN IV 10/03/16 14:30 10/07/16 14:29 Metronidazole 500 mg/Prmx 100 ml @ 100 mls/hr Q8H IV 10/03/16 19:00 10/13/16 18:59 10/05/16 11:00 100 MLS/HR Metronidazole HCl (Metrogel Topical Gel) 1 appln DAILY TOP 10/04/16 16:00 10/14/16 15:59 10/05/16 07:49 1 APPLN Objective Vital Signs Date Time Temp Pulse Resp B/P (MAP) Pulse Ox O2 Delivery O2 Flow Rate FiO2 10/05/16 12:30 94 Room Air 10/05/16 11:13 36.3 92 20 123/78 (93) 97 Room Air 10/05/16 08:01 94 Room Air 10/05/16 07:44 36.6 101 20 123/77 (92) 94 Room Air 10/05/16 04:00 Room Air 10/05/16 03:19 37.0 99 18 147/88 (107) 94 10/05/16 00:00 Room Air 10/04/16 23:46 36.4 92 18 139/86 (103) 98 Room Air 135/78 (97) 10/04/16 20:00 94 Room Air 10/04/16 19:04 36.7 96 19 105/71 (82) 94 Room Air 10/04/16 16:00 92 Room Air 10/04/16 15:16 36.5 93 18 104/67 (79) 92 Room Air Physical Exam General Appearance: WD/WN, no apparent distress ENT: hearing grossly normal, pharynx normal Neck: supple, no JVD, no carotid bruits, trachea midline Respiratory/Chest: lungs clear, no respiratory distress, no accessory muscle use Cardiovascular: no edema, no murmur, + irregularly irregular Abdomen: normal bowel sounds, non tender, soft Extremities: non-tender, no pedal edema, normal capillary refill Neurologic/Psychiatric: alert, normal mood/affect, oriented x 3 Laboratory Results Results Past 24 Hours Test 10/05/16 06:44 10/05/16 08:13 Range/Units White Blood Count 15.54 4.8-10.8 K/uL Red Blood Count 3.78 4.7-6.1 M/uL Hemoglobin 12.6 14.0-18.0 g/dL Hematocrit 36.3 42-52 % Mean Corpuscular Volume 96.0 80-100 fL Mean Corpuscular Hemoglobin 33.3 25-34 pg Mean Corpuscular Hemoglobin Concent 34.7 32-36 g/dl Platelet Count 55 130-400 K/uL Mean Platelet Volume 11.5 7.4-10.4 fL Neutrophils (%) (Auto) 80.5 % Lymphocytes (%) (Auto) 7.1 % Monocytes (%) (Auto) 5.3 % Eosinophils (%) (Auto) 0.0 % Basophils (%) (Auto) 0.5 % Neutrophils # (Auto) 12.51 1.4-6.5 K/uL Lymphocytes # (Auto) 1.11 1.2-3.4 K/uL Monocytes # (Auto) 0.83 0.11-0.59 K/uL Eosinophils # (Auto) 0.00 0-0.5 K/uL Basophils # (Auto) 0.07 0-0.2 K/uL RDW Standard Deviation 47.7 36.4-46.3 fL RDW Coefficient of Variation 13.7 11.5-14.5 % Immature Granulocyte % (Auto) 6.6 % Immature Granulocyte # (Auto) 1.02 0.00-0.02 K/uL Toxic Granulation 1+ Echinocytes 2+ Prostate Specific Antigen 40.400 0.000-4.000 ng/ml Prothrombin Time 44.1 9.0-12.0 SECONDS Prothromb Time International Ratio 3.9 0.9-1.1 Assessment and Plan 81 yo m w/ hx 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 Patient was also found to have colitis of descending and sigmoid colon Sepsis with septic shock, Gram negative bacteremia in setting of Pancytopenia secondary to Chemotherapy - Blood cx's x2 positive for pseudomonas - patient transitioned to PO levaquin - repeat blood culture negative Colitis of descending colon - found on CT - start flagyl for anaerobic coverage - stop coumadin - advance diet to full liquid diet Afib with RVR - restarted atenolol - patient on telemetry - burst of afib overnight otherwise NSR Pancytopenia - secondary to chemotherapy for Metastatic Prostate Ca - Per infectious Disease, consider G-CSF Hx of DVT on coumadin at home - coumadin held - INR 3.9 today, continue to monitor - hgb stable and no active signs of bleeding CAD s/p stent,Chronic Diastolic HF - Echo (09/30): -Low-normal systolic function, Estimated EF 50% -Severe hypokinesis to akinesis of the inferior base and septal base -Type 1 diastolic dysfunction. 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 Koffi Flores during the history and exam. I discussed the case with the resident and agree with the findings and plan as documented in the note. Any exceptions or clarifications are listed here: none. Pt feels good. Abd pain resolved. Tolerating diet. No nausea/emesis. Tele - mainly NSR, occasional run of a. fib. VSS afebrile gen -nontoxic, NAD - looks better mouth - mild mucositis nearly resolved heart - RRR, s1, s2 lungs - CTA b/l abd - soft, NT, ND, BS+ ext - no edema platelets 55 PSA 40 A/P: 1. septic shock 2nd to pseudomonas - source - probably GI. NO evidence of prostatitis on examination and urine cx did not show pseudomonas (diptherioids) . ID following; they recommend 14 days of rx starting with day #1 on 10/01/16. Thus , #6/14 of levaquin. Cont flagyl to cover the colitis. Change to po abx today. 2. pancytopenia 2nd to chemotherapy for prostate ca - leukopenia/neutropenia resolved. Platelets improving. H/H stable. 3. stage 4 prostate ca s/p recent chemo. 4. sepsis-associated ATN leading to acute kidney injury. Resolved. 5. thrombocytopenia. Due to #1? recent chemo? combination of factors? daily CBC. IMPROVING. 6. hypokalemia - resolved. 7. neutropenia - resolved. 8. new-onset a. fib. Resolved. In NSR. ON coumadin. 9. +troponin - probably type 2 OH / myocardial demand ischemia in setting of # 1. 10. acute/chronic systolic/diastolic CHF - compensated. 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 Now back on daily po prednisone. 12. LLQ abd pain - 2nd to colitis - resolved. 13. non-sustained V-tach x 2 runs overnight - NO SYMPTOMS. He does have wall motion abnormalities on recent echo and certainly ischemia could be contributing as he has known CAD. however, poor candidate for any invasive cardiac testing at this time. Monitor carefully. 14. h/o DVT - INR >3.5 today; cont to HOLD COUMADIN TODAY; repeat INR tomorrow am. updated at bedside continue telemetry dc tomorrow to home with home health/PT/OT?? Documented By: Gavin Luu MD Continued [facility] stay due to: home environment unsafe for pt
[2016-10-05] MEDS: METRONIDAZOLE 500 MG TAB PO SCH (20:43)
[2016-10-05] MEDS: ACETAMINOPHEN 325 MG TAB PO PRN (23:48)
[2016-10-06] VITALS (7 sets, daily range): BP systolic 116–155; BP diastolic 74–82; PULSE 75–102; TEMP 36.2–36.9; O2SAT 93–98
[2016-10-06] MEDS: DEXAMETHASONE CONC SOLN 3.75 MG, NYSTATIN SUSP 30 ML, DiphenhydrAMINE HCL SYRUP 300 MG,... PO SCH ×10 (07:00→11:00)
[2016-10-06 08:48] LABS: HEMATOCRIT 37.8 % (42-52); MEAN CELL VOLUME 97.9 fL (80-100); MEAN CORPUSCULAR HEMOGLOBIN 32.6 pg (25-34); MEAN CORPUSCULAR HGB CONC 33.3 g/dl (32-36); MEAN PLATELET VOLUME 11.2 fL (7.4-10.4); PLATELET COUNT 85 K/uL (130-400); RED BLOOD COUNT 3.86 M/uL (4.7-6.1); WHITE BLOOD COUNT 17.25 K/uL (4.8-10.8)
[2016-10-06 08:54] LABS: PROTHROMBIN TIME (PATIENT) 46.8 SECONDS (9.0-12.0)
[2016-10-06 08:55] LABS: INR 4.1 (0.9-1.1)
[2016-10-06 09:11] LABS: COMPLETE YES; ECHINOCYTES 1+; LYMPH ABS # 1.35 K/uL (1.2-3.4); LYMPHOCYTE % 7.8 %; META ABS # 0.16 K/uL (0-0); METAMYELOCYTE % 0.9 %; MYELOCYTE % 3.5 %; NEUTROPHILS % 85.2 %; PLT ESTIMATE DECREASED; TOXIC GRANULATION 1+
[2016-10-06 09:34] LABS: BUN/CREATININE RATIO 15.8 (10-20); CALCIUM 7.8 mg/dl (8.5-10.1); CREATININE 1.1 mg/dl (0.60-1.40); POTASSIUM 3.6 mmol/L (3.5-5.1)
[2016-10-06] MEDS: EZETIMIBE 10MG TAB PO SCH (09:42)
[2016-10-06] MEDS: ATORVASTATIN 40 MG TAB PO SCH (09:42)
[2016-10-06] MEDS: METRONIDAZOLE 500 MG TAB PO SCH (09:42)
[2016-10-06] MEDS: CEROVITE ADV FORMULA TAB PO SCH (09:42)
[2016-10-06] MEDS: METRONIDAZOLE 0.75% TOPICAL GEL 45 GM TUBE TOP SCH (09:49)
[2016-10-06] MEDS ORDERED: LEVOFLOXACIN 750 MG TAB PO SCH (11:00)
[2016-10-06] MEDS ORDERED: LVQ750 PO (14:47)
[2016-10-06] MEDS ORDERED: MTR500 PO (14:47)
--- NOTE | 2016-10-06 14:53 | Discharge Instructions ---
Discharge Instructions Date of Service Oct 06, 2016. Admission Reason for Admission: Pancytopenia Due To Antineoplastic Chemo Discharge Discharge Diagnosis / Problem: Pseudomonas Bacteremia and Colitis Discharge Goals Goal(s): Improve function, Improve disease control, Diagnostic testing, Therapeutic intervention Activity Recommendations Activity Limitations: per Instructions/Follow-up section . Instructions / Follow-Up Instructions / Follow-Up You were found to have pseudomonas in your blood. We treated you with IV antibiotics. You will be going home with oral antibiotics. We have held your Warfarin as your most recent INR was 4.1. We will give you a prescription so you can go to the lab and get your INR checked on Sunday. Please follow up with Dr. Lara next week on Sunday or Sunday. You will also need to follow up with Dr. Betancourt next week. We are in the process of making these appointments. If you have any fevers, chills, vomiting or bloody diarrhea please come back to the emergency department. Current Hospital Diet Patient's current hospital diet: Regular Diet, AHA Diet (Heart Healthy) Discharge Diet Recommended Diet: Regular Diet, AHA Diet (Heart Healthy) Pending Studies Studies pending at discharge: no Medical Emergencies . Who to Call and When: Medical Emergencies: If at any time you feel your situation is an emergency, please call 911 immediately. . Non-Emergent Contact Non-Emergency issues call your: Primary Care Provider, Oncologist . . "Provider Documentation" section prepared by Koffi Flores. . VTE Core Measure Inpt VTE Proph given/why not?: Warfarin (Coumadin)
[2016-10-06] MEDS ORDERED: MTRG45 TOP (15:41)
--- NOTE | 2016-10-06 18:22 | Discharge Summary ---
Discharge Summary Date of Service Oct 06, 2016. (Koffi Flores MD) Discharge Summary Admission Date: Sep 29, 2016 at 12:20 Discharge Date: Oct 06, 2016 Discharge Disposition: Home with services Principal Diagnosis: Pseudomonas bacteremia Problems/Secondary Diagnoses: Colitis Immunizations: Have You Had Influenza Vaccine: No History of Tetanus Vaccine?: utd Tetanus Immunization Date: Nov 18, 2009 History of Pneumococcal: Yes History of Hepatitis B Vaccine: No Consultations: Critical care Infectious Disease (Koffi Flores MD) Problems/Secondary Diagnoses: septic shock 2nd to pseudomonas bacteremia acute hypoxic respiratory failure acute kidney failure - resolved atrial fibrillation supratherapeutic INR stage 4 prostate cancer pancytopenia 2nd to chemotherapy for prostate cancer severe neutropenia - resolved mucositis - resolving chronic prednisone use +troponin - likely myocardial demand ischemia CAD acute/chronic diastolic CHF Procedures: echocardiogram: * -- Conclusions -- * 1. Normal left ventricular size with low-normal systolic function. Estimated EF 50%. Severe hypokinesis to akinesis of the inferior base and septal base. No left ventricular hypertrophy. Type 1 diastolic dysfunction. * 2. There is mild mitral regurgitation. * 3. Technically difficult study, enhanced with IV Definity. * 4. Compared to prior study on 12/19/2010, LV systolic function is no longer hyperdynamic, but rather low normal. (Gavin Luu MD) Medication Reconciliation New Medications: Levofloxacin (Levofloxacin) 750 Mg Tab 750 MG PO DAILY@11 for 7 Days, #7 TAB Metronidazole (Metronidazole) 500 Mg Tab 500 MG PO BID for 7 Days, #14 TAB Metronidazole HCl (Metronidazole) 135 Appln/45 Gm Gel 1 APPLN TOP DAILY for 14 Days, #10 GM Continued Medications: Atenolol (Tenormin) 25 Mg Tab 12.5 MG PO DAILY, TAB Atorvastatin (Lipitor) 80 Mg Tab 80 MG PO DAILY, 0 Refills Calcium/Vitamin D (Os-Colton 500 Plus D) Tab 1 TABLET PO BID, TAB Denosumab (Xgeva) 120 Mg/1.7 Ml Inj 120 MG IM Q4WK Ezetimibe (Zetia) 10 Mg Tab 10 MG PO DAILY, 0 Refills Leuprolide Acetate (Lupron Depot) 7.5 Mg Inj 7.5 MG IM Q3 MONTHS Multivitamins/Minerals (Mvi With Minerals) Tab 1 TABLET PO DAILY, TAB Nitroglycerin (Nitrostat) 0.4 Mg Tab 0.4 MG UT UD PRN for Chest Pain, BTL PLACE ONE TABLET UNDER THE TONGUE EVERY 5 MINUTES FOR UP TO 3 DOSES NEEDED FOR CHEST PAIN. Prednisone Tab (Prednisone) 10 Mg Tab 10 MG PO DAILY Prochlorperazine Maleate (Prochlorperazine Maleate) 10 Mg Tab 10 MG PO Q8 PRN for Nausea Tramadol HCl (Tramadol HCl) 50 Mg Tab 50 MG PO Q6 PRN for Pain Discontinued Medications: Celecoxib (Celebrex) 100 Mg Cap 200 MG PO DAILY TWO 100MG CAPSULES Warfarin Sod (Jantoven) 5 Mg Tab 2.5 MG PO 5XWK, TAB Warfarin Sod (Jantoven) 5 Mg Tab 5 MG PO 2XWK, TAB M/F Discharge Exam Patient tolerating regular diet well Would like to go home today Having regular bowel movement, remain dark in colour No nausea, vomiting, ab pain Review of Systems: Constitutional: No fever, No chills Eyes: No worsening of vision ENT: No hearing loss, No unusual epistaxis, No trouble swallowing Respiratory: No cough, No sputum, No wheezing, No shortness of breath Cardiovascular: No chest pain, No claudication, No palpitations Abdomen: No pain, No nausea, No vomiting, No diarrhea, No constipation Neurologic: No paralysis, No numbness/tingling Hematologic / Lymphatic: No abnormal bleeding/bruising, No clotting problems Integumentary: No rash, No itch, No new/changing skin lesions Physical Exam: General Appearance: WD/WN, no apparent distress Eyes: normal inspection, sclerae normal ENT: hearing grossly normal, pharynx normal Neck: supple, no adenopathy, no JVD, no carotid bruits, trachea midline Respiratory/Chest: lungs clear, no respiratory distress, no accessory muscle use Cardiovascular: regular rate, rhythm, no JVD, no murmur, normal peripheral pulses Abdomen / GI: normal bowel sounds, non tender, soft, no organomegaly, no pulsatile mass Extremities: normal capillary refill, no pedal edema, non-tender Neurologic/Psychiatric: alert, normal mood/affect, oriented x 3 Skin: + pertinent finding (rosacea on nose and scattered ecchymosis on arms bilaterally) (Koffi Flores MD) Hospital Course 81 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 Patient was also found to have colitis of descending and sigmoid colon Sepsis with septic shock, Gram negative bacteremia in setting of Pancytopenia secondary to Chemotherapy - Was in the ICU on pressors and BiPAP for 3 days - Blood cx's x2 positive for pseudomonas - patient transitioned to PO levaquin on discharge for 1 week - repeat blood culture negative Colitis of descending colon - found on CT - discharged with flagyl PO for 1 week Afib with RVR - atenolol Pancytopenia - secondary to chemotherapy for Metastatic Prostate Ca - On discharge his WCC of 17, hgb of 12.6 and plt of 85. Hx of DVT on coumadin - INR 4.1 on discharge, coumadin held, will repeat on Sunday and Dr. Flores will phone him for warfarin dosage CAD s/p stent,Chronic Diastolic HF - Echo (09/30): -Low-normal systolic function, Estimated EF 50% -Severe hypokinesis to akinesis of the inferior base and septal base -Type 1 diastolic dysfunction. -c/w Ezetimibe, Atorvastatin Metastatic Prostate Cancer - dx 2004 -s/p chemotherapy 1 wk - patient on 10mg prednisone - follow with [facility] - on lupron - PSA done was 40 in hospital, rising Rosacea - topical metronidazole gel DISCHARGED on 10/06/2016 with home health Total Time Spent: Less than 30 minutes This includes examination of the patient, discharge planning, medication reconciliation, and communication with other providers. (Koffi Flores .MD) Resident Physician Supervision Note: I was present with PGY2 Dr. Koffi Flores during the discharge history and exam. I discussed the case with the resident and agree with the findings and plan as documented in the discharge summary. Any exceptions or clarifications are listed here: none. 81yo male with stage 4 prostate cancer, CAD, a. fib -- who presented with septic shock, severe pancytopenia with neutropenia, and acute kidney failure with positive troponin. He was admitted to ICU and required pressors for his shock and BIPAP for his respiratory failure. Blood cultures ultimately grew pseudomonas. The source was not readily identifiable; urine culture was negative and prostate exam was NOT suggestive of prostatitis. Due to left-sided abdominal pain he ultimately underwent CT abd/pelvis demonstrating evidence of colitis. It was difficult to determine if the colitis was secondary to the shock (ie ischemic) OR was the colitis, in fact, the direct cause of his sepsis with shock. Either way his repeat blood cultures remained negative, he improved clinically with IV antibiotic therapy, and all GI symptoms resolved as well. The patient's neutropenia and thrombocytopenia improved with treatment of his infection & supportive care. Discharge platelet count was greater than 75. ANC was normal at time of discharge. The patient's acute respiratory failure was 2nd to acute/chronic diastolic CHF in the setting of his shock. His pulmonary status was stable at discharge with normal O2 sats in room air. He will complete a course of levaquin and flagyl following discharge. INR on day of discharge was 4.1 and thus coumadin was held. He will return for repeat INR in 48 hours following discharge. PSA was 40 during this hospital stay; follow-up with Dr. Justo Betancourt will be arranged. Lastly, the patient has a new wall motion abnormality on echo. This finding in the setting of his +troponin as well as known CAD history is concerning. However, this is a difficult situation given his prostate cancer, low platelets , etc. 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 discharge exam - gen - nad mouth - mucositis nearly resolved heart - RRR lungs - CTA b/l abd - soft, NT, ND, BS+ ext - no edema Total time spent on discharge activities - 45 minutes Documented By: Gavin Luu MD Total Time Spent: Greater than 30 minutes (Gavin Luu MD) Discharge Instructions Please refer to the electronic Patient Visit Report (Discharge Instructions) for additional information. (Koffi Flores MD) Additional Copies To Itz Betancourt D.O.; Sylvia Lara MD
[2016-10-11] MEDS ORDERED: WARF5TAB7 PO (11:52)
[2016-10-18] MEDS ORDERED: WARF5TAB7 PO (11:47)
[2016-11-01] MEDS ORDERED: LNX125 PO (11:53)
[2016-12-07] MEDS ORDERED: [UNRECOGNIZED DRUG - CODE] PO (09:59)
[2016-12-07] MEDS ORDERED: CYCL1CAP19 PO (09:59)
== END 2016-10-06 16:45 | disposition home health service (06) | DRG 871 ==
LOC: EDBD 09:37 → C.EDA 09:41 → UNDOADMIN 12:20 → C.4E 12:20 → ENRESERV 12:37 → C.4E 16:52 → C.2T 16:52 → ENRESERV 21:00 → C.MSICU 21:12 → C.2T 21:12 → C.MSICU 10-01 07:03 → C.2T 10-03 12:39
PROVIDERS: ADMIT Internal Medicine; ATTEND Internal Medicine
DX: A41.52 Sepsis due to Pseudomonas (principal); G93.41 Metabolic encephalopathy; I50.43 Acute on chronic combined systolic (congestive) and diastolic (congestive) heart failure; N17.0 Acute kidney failure with tubular necrosis; J96.01 Acute respiratory failure with hypoxia; D61.810 Antineoplastic chemotherapy induced pancytopenia; I21.4 Non-ST elevation (NSTEMI) myocardial infarction; E87.2 Acidosis; I13.0 Hypertensive heart and chronic kidney disease with heart failure and stage 1 through stage 4 chronic kidney disease, or unspecified chronic kidney disease; I47.1 Supraventricular tachycardia; K52.9 Noninfective gastroenteritis and colitis, unspecified; L71.9 Rosacea, unspecified; I25.10 Atherosclerotic heart disease of native coronary artery without angina pectoris; N18.3 Chronic kidney disease, stage 3 (moderate); I25.2 Old myocardial infarction; E87.5 Hyperkalemia; Z95.5 Presence of coronary angioplasty implant and graft; M19.90 Unspecified osteoarthritis, unspecified site; M50.30 Other cervical disc degeneration, unspecified cervical region; E87.6 Hypokalemia; Z79.52 Long term (current) use of systemic steroids; Z80.9 Family history of malignant neoplasm, unspecified; Z82.49 Family history of ischemic heart disease and other diseases of the circulatory system; Z87.891 Personal history of nicotine dependence; Z88.8 Allergy status to other drugs, medicaments and biological substances; Z88.0 Allergy status to penicillin; K59.00 Constipation, unspecified; Z79.01 Long term (current) use of anticoagulants; Z86.718 Personal history of other venous thrombosis and embolism; K57.90 Diverticulosis of intestine, part unspecified, without perforation or abscess without bleeding; D69.6 Thrombocytopenia, unspecified; C61 Malignant neoplasm of prostate

== ENCOUNTER → 2016-10-08 | Outpatient (CLI) | payer OTHER, BC ==
[~2016-10-08] MED LIST changes: +CMP/10 PO; +CYCL1CAP19 PO; +LNX125 PO; +LVQ750 PO; +MTR500 PO; +MTRG45 TOP; -PRED-301 PO; +PRED10TA PO; +ULT50 PO; +[UNRECOGNIZED DRUG - CODE] PO
[2016-10-08 11:01] LABS: PROTHROMBIN TIME (PATIENT) 69.5 SECONDS (9.0-12.0)
== END | disposition home or self-care (01) ==
LOC: C.LAB 10:05
PROVIDERS: ATTEND Student in an Organized Health Care Education/Training Program
DX: I82.409 Acute embolism and thrombosis of unspecified deep veins of unspecified lower extremity (principal)

== ENCOUNTER → 2016-10-30 | Outpatient (CLI) | payer BC ==
[~2016-10-30] MED LIST changes: +ENOX80IN SQ; -LVQ750 PO; -MTR500 PO
--- NOTE | 2016-10-30 15:32 | DIAGNOSTIC IMAGING REPORT ---
CHEST 2 VIEWS ROUTINE CLINICAL HISTORY: R06.09 Dyspnea on [id number] dyspnea COMPARISON STUDY: 10/02/2016 FINDINGS: Improved aeration both lung bases. Minimal miliary calcified granulomas throughout both hemithoraces. Sclerotic changes primarily of the right fifth rib are again noted. Small areas of sclerosis are stable. Diaphragms are smooth. IMPRESSION: Mild improvement in aeration of the lung bases. Unchanging sclerotic bone lesions. The above report was generated using voice recognition software. It may contain grammatical, syntax or spelling errors. Electronically signed by: Prudencio Pickens M.D. 10/30/2016 3:30 PM Dictated Date/Time: 10/30/2016 3:29 PM
== END | disposition home or self-care (01) ==
LOC: C.RAD1850 15:02
PROVIDERS: ATTEND Physician Assistant
DX: R06.09 Other forms of dyspnea (principal); M89.9 Disorder of bone, unspecified; I48.91 Unspecified atrial fibrillation

== ENCOUNTER → 2016-11-06 | Outpatient (CLI) | payer BC ==
[2016-11-06 10:47] LABS: CHOLESTEROL/HDL RATIO 3.8
== END | disposition home or self-care (01) ==
LOC: C.LAB1850 08:57
PROVIDERS: ATTEND Internal Medicine Cardiovascular Disease
DX: E78.5 Hyperlipidemia, unspecified (principal)

== ENCOUNTER → 2016-12-22 | Outpatient (CLI) | payer BC ==
[~2016-12-22] MED LIST changes: +OPTIRAY 320 IV PRN; -[UNRECOGNIZED DRUG - CODE] PO
--- NOTE | 2016-12-22 14:44 | DIAGNOSTIC IMAGING REPORT ---
ULTRASOUND VENOUS DOPPLER ULTRASOUND THE RIGHT LOWER EXTREMITY CLINICAL HISTORY: Right leg swelling. Prostate carcinoma COMPARISON STUDY: No previous studies for comparison. FINDINGS: There is extensive acute intraluminal thrombus involving the common femoral vein, superficial femoral vein, popliteal vein, posterior tibial vein, peroneal vein, and anterior tibial vein. IMPRESSION: Extensive right lower extremity DVT extending from the calf veins to the common femoral vein. The common femoral vein thrombus measures 13 mm in diameter. Electronically signed by: Chandana Rojo M.D. 12/22/2016 2:43 PM Dictated Date/Time: 12/22/2016 2:40 PM
--- NOTE | 2016-12-22 15:26 | DIAGNOSTIC IMAGING REPORT ---
CT SCAN OF THE ABDOMEN AND PELVIS WITH IV CONTRAST CLINICAL HISTORY: Prostate cancer. COMPARISON STUDY: Prior abdominal CT scans, most recently dated 10/03/2016. TECHNIQUE: Following the IV administration of 93 cc of Optiray 320, CT scan of the abdomen and pelvis is performed from the lung bases to the proximal femora. Images are reviewed in the axial, sagittal, and coronal planes. IV contrast was administered without complication. Automated dose control exposure was utilized. CT DOSE: 691.25 mGycm FINDINGS: Lung bases: The heart is time normal in size and without pericardial effusion. The coronary arteries are densely calcified. Numerous calcified granulomas are seen at the lung bases. Pleural effusions have resolved from previous. No airspace consolidation is identified.. Liver: The contrast-enhanced liver is normal in size, contour, and attenuation. There is no intrahepatic biliary ductal dilatation. The hepatic veins and portal veins are patent. Gallbladder: The gallbladder is normal as visualized. Spleen: Normal in size and attenuation. There are numerous calcified splenic granulomas. Pancreas: Pancreas is atrophic. The pancreas duct is normal in caliber. A 1.5 cm ovoid water attenuation lesion in the pancreatic head is seen on image #121. 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 Adrenal glands: Unremarkable. Kidneys: The contrast enhanced kidneys demonstrate cortical atrophy and are without hydronephrosis. The kidneys enhance symmetrically. There is a 6.1 cm cyst arising from the lower pole of the left kidney. Additional smaller cysts and too small to characterize cortical hypodensities are present in both kidneys and similar to previous. Abdominal vasculature: The abdominal aorta is normal in course and caliber noting advanced atherosclerotic calcification. Deep venous thrombosis is identified in the right common femoral vein. This is best seen on axial image #413. Bowel: There is no bowel obstruction. There is advanced colonic diverticulosis without CT evidence of acute diverticulitis. The appendix is well-visualized and normal. There is diverticulosis of the distal small bowel. Peritoneum: There is no intraperitoneal free air or abdominal ascites. Trace fluid is seen in the left paracolic gutter. There is a small fat-containing umbilical hernia. Lymphadenopathy: Retroperitoneal lymphadenopathy is again noted. This is similar appearance to the 10/03/2016 examination. A left periaortic node on image #132 measures 2.1 x 1.9 cm. A more inferiorly located node on image #156 measures 1.6 x 1.9 cm. A left iliac chain node on image #288 is unchanged measuring up to 1.6 cm. Mildly enlarged retrocrural lymph nodes are unchanged and measure up to 10 mm as seen on image #89. No pelvic sidewall or inguinal lymphadenopathy is seen. Pelvic viscera: The prostate gland is diminutive and contains numerous brachytherapy beads. The bladder is decompressed and grossly unremarkable. Foci of subcutaneous gas are present in the left gluteal soft tissues, likely related to subcutaneous injection. Skeletal structures: The skeletal structures are osteopenic. No lytic or blastic lesions are identified. The patient's known right fifth rib lesion is not included on today's examination. IMPRESSION: 1. Deep venous thrombosis is identified in the right common femoral vein. 2. There has been no significant change in retroperitoneal and left iliac chain lymphadenopathy when compared to the 10/03/2016 examination. This remains consistent with metastatic disease. 3. No progressive osseous metastatic disease is identified. The patient's known right fifth rib lesion is not included on today's examination. 4. Pleural effusions have resolved from previous. 5. A 1.6 cm cystic lesion is seen in the pancreatic head. 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 Attention at follow-up is recommended. 6. Additional changes as detailed above. Electronically signed by: Ramon Ruggiero M.D. 12/22/2016 3:25 PM Dictated Date/Time: 12/22/2016 3:12 PM
== END | disposition home or self-care (01) ==
LOC: C.CTS 14:02
PROVIDERS: ATTEND Internal Medicine Hematology & Oncology
DX: C61 Malignant neoplasm of prostate (principal); I82.411 Acute embolism and thrombosis of right femoral vein; R59.0 Localized enlarged lymph nodes; K86.9 Disease of pancreas, unspecified

== ENCOUNTER → 2017-02-26 | Outpatient (CLI) | payer BC ==
[~2017-02-26] MED LIST changes: -CMP/10 PO; -MTRG45 TOP; -OPTIRAY 320 IV PRN; -WARF5TAB7 PO
--- NOTE | 2017-02-26 13:20 | DIAGNOSTIC IMAGING REPORT ---
ULTRASOUND ABDOMEN COMPLETE CLINICAL HISTORY: Prostate cancer. COMPARISON STUDY: Abdominal CT dated 12/22/2016. TECHNIQUE: Real-time, grayscale, and color flow sonography of the abdomen was performed. Images are reviewed in the transverse and longitudinal planes. FINDINGS: Liver: The liver is normal in size and echotexture. There is no intrahepatic biliary ductal dilatation. The main portal vein is patent. Gallbladder: Biliary sludge is identified. The gallbladder is mildly distended. No shadowing gallstones are identified. There is no gallbladder wall thickening or pericholecystic fluid. A sonographic Moralez's sign is reportedly absent. The common bile duct measures up to 0.5 cm in diameter. Pancreas: Visualized portions of the pancreatic head and body are normal in appearance. The splenic vein is patent. Spleen: The spleen is normal in size and echotexture, measuring 9.6 cm in length. There are numerous calcified splenic granulomas. Kidneys: The kidneys are atrophic. There is no hydronephrosis. The right kidney measures 9.7 cm in length and the left kidney measures 9.4 cm in length. No shadowing calculi are identified. A 6.2 cm cyst arises from the left lower pole. Abdominal vasculature: Visualized portions of the abdominal aorta are normal in caliber noting atherosclerotic plaque and irregularity. Bladder: Decompressed and not well evaluated. Ascites: None. IMPRESSION: 1. No acute sonographic abnormality is identified. 2. Biliary sludge is noted. There are no shadowing gallstones identified, and no sonographic evidence of acute cholecystitis. Electronically signed by: Ramon Ruggiero M.D. 02/26/2017 1:19 PM Dictated Date/Time: 02/26/2017 1:17 PM
--- NOTE | 2017-02-26 17:00 | ECHOCARDIOGRAM REPORT ---
*NOTICE TO RECEIVING [employer] This information is strictly Confidential and protected under [place] law. [place] law prohibits you from making any further disclosure of this information unless further disclosure is expressly permitted by the written consent of the person to whom it pertains or is authorized by law. A general authorization for the release of medical or other information is not sufficient for this purpose. Hospital accepts no responsibility if the information is made available to any other person, INCLUDING THE PATIENT. Interpretation Summary * Name: KI MONROE JR Study Date: 02/26/2017 01:14 PM BP: 124/80 mmHg * Patient Location: [facility] HR: 61 * : 1935 (M/d/yyyy) Gender: Male Height: 70 in * Age: 81 yrs Ethnicity: CA Weight: 170 lb * Ordering Physician: Itz Betancourt * Referring Physician: Itz Betancourt PCruzito Reagan * Performed By: Petra Hernandez RDCS * * Reason For Study: EVALUATE LVEF, PROSTATE CA * BSA: 1.9 m2 * -- Conclusions -- * 1. Normal LV size, sigmoid septum otherwise normal LV wall thickness. * 2. Normla LV systolic function. LVEF 65-70%. No regional wall motion. * 3. RV not well visualized but size and function appears grossly normal. * 4. Diastolic dysfunction. * 5. Mild mitral regurgitation * 6. Normal estimated PA and RA pressures. * 7. Compared to prior study on 09/30/2016: LV function appears improved. Procedure Details * A complete two-dimensional transthoracic echocardiogram was performed (2D, M-mode, Doppler and color flow Doppler). Left Ventricle * The left ventricle is grossly normal size. * The basal septum is thickened and angulated consistent with sigmoid septum. * There is normal left ventricular wall thickness. * Ejection Fraction = 65-70%. Right Ventricle * The right ventricle is not well visualized. * The right ventricle is grossly normal size. * The right ventricular systolic function is qualitatively normal. Atria * The left atrium is mildly dilated. * Right atrium not well visualized. * There is no evidence of atrial septal defect, but resolution does not allow assessment for a patent foramen ovale. Mitral Valve * There is mild mitral annular calcification. * There is no mitral valve stenosis. * There is mild mitral regurgitation. Tricuspid Valve * The tricuspid valve is not well visualized. * There is trace tricuspid regurgitation. Aortic Valve * The aortic valve opens well. * Aortic valve sclerosis mild, without significant aortic valvular stenosis. * The aortic valve is trileaflet. * No hemodynamically significant valvular aortic stenosis. * There is no significant aortic regurgitation. Pulmonic Valve * The pulmonary valve is inadequately visualized, but the Doppler data is adequate for interpretation. * Pulmonic stenosis is absent. * There is no significant pulmonary regurgitation. Great Vessels * The aortic root and proximal ascending aorta are normal sized. Pericardium/Pleural * There is no pericardial effusion. Great Vessels * Normal inferior vena cava size and collapsability with sniff indicates a normal right atrial pressure of 3 mmHg * There is no evidence of pulmonary hypertension. The PA systolic pressure is less than 36 mmHg. Left Ventricular Diastolic Function * Diastolic dysfunction. MMode 2D Measurements and Calculations IVSd 1.4 cm IVSs 2.1 cm LVIDd 3.8 cm LVIDs 2.6 cm LVPWd 1.1 cm LVPWs 1.8 cm IVS/LVPW 1.3 FS 31.3 % EDV(Teich) 63.9 ml ESV(Teich) 25.7 ml EF(Teich) 59.8 % EDV(cubed) 57.1 ml ESV(cubed) 18.5 ml EF(cubed) 67.5 % % IVS thick 49.3 % % LVPW thick 73.4 % LV mass(C)d 159.6 grams LV mass(C)dI 82.0 grams/m\S\2 LV mass(C)s 217.6 grams LV mass(C)sI 111.7 grams/m\S\2 SV(Teich) 38.2 ml SI(Teich) 19.6 ml/m\S\2 SV(cubed) 38.5 ml SI(cubed) 19.8 ml/m\S\2 Ao root diam 3.4 cm Ao root area 9.0 cm\S\2 LA dimension 3.5 cm LA/Ao 1.0 LVAd ap4 20.5 cm\S\2 LVLd ap4 7.3 cm EDV(MOD-sp4) 48.6 ml EDV(sp4-el) 48.9 ml LVAs ap4 12.0 cm\S\2 LVLs ap4 5.8 cm ESV(MOD-sp4) 22.4 ml ESV(sp4-el) 21.1 ml EF(MOD-sp4) 54.0 % EF(sp4-el) 56.8 % LVAd ap2 19.4 cm\S\2 LVLd ap2 7.3 cm EDV(MOD-sp2) 42.6 ml EDV(sp2-el) 43.7 ml LVAs ap2 11.9 cm\S\2 LVLs ap2 6.4 cm ESV(MOD-sp2) 20.4 ml ESV(sp2-el) 19.0 ml EF(MOD-sp2) 52.0 % EF(sp2-el) 56.6 % LVLd %diff -0.27 % EDV(MOD-bp) 44.9 ml LVLs %diff 8.5 % ESV(MOD-bp) 22.1 ml EF(MOD-bp) 50.8 % SV(MOD-sp4) 26.2 ml SI(MOD-sp4) 13.5 ml/m\S\2 SV(MOD-sp2) 22.2 ml SI(MOD-sp2) 11.4 ml/m\S\2 SV(MOD-bp) 22.8 ml SI(MOD-bp) 11.7 ml/m\S\2 SV(sp4-el) 27.8 ml SI(sp4-el) 14.3 ml/m\S\2 SV(sp2-el) 24.7 ml SI(sp2-el) 12.7 ml/m\S\2 Doppler Measurements and Calculations Ao V2 max 120.4 cm/sec Ao max PG 5.8 mmHg Ao max PG (full) -0.17 mmHg LV V1 max PG 6.0 mmHg LV V1 max 122.1 cm/sec TR max eduar 244.4 cm/sec
== END | disposition home or self-care (01) ==
LOC: C.ULTR 12:18
PROVIDERS: ATTEND Internal Medicine Hematology & Oncology
DX: C61 Malignant neoplasm of prostate (principal)

== ENCOUNTER → 2017-04-20 | Outpatient (CLI) | payer BC ==
--- NOTE | 2017-04-20 13:45 | DIAGNOSTIC IMAGING REPORT ---
TWO VIEW CHEST CLINICAL HISTORY: Prostate cancer. FINDINGS: PA and lateral chest radiographs are compared to study performed the same day 10/30/2016 and correlated with chest CT dated 08/14/2016. The PA view is degraded by patient rotation. There are calcified mediastinal and hilar lymph nodes. The heart is enlarged and there is atherosclerotic calcification of the thoracic aorta. The pulmonary vasculature is noncongested. Chronic interstitial thickening is noted. There is no evidence of airspace consolidation or pleural effusion. Numerous calcified granulomas and foci of parenchymal scarring are similar to previous. No pneumothorax is seen. The skeletal structures are osteopenic. The bony thorax is grossly intact. A large osteoblastic lesions again seen within the right anterior fifth rib. IMPRESSION: 1. Cardiomegaly with no acute cardiopulmonary abnormality. 2. A large sclerotic lesion is again seen within the right anterior fifth rib. 3. Numerous calcified granulomas, foci of parenchymal scarring, and calcified mediastinal/hilar lymph nodes are similar to previous. Electronically signed by: Ramon Ruggiero M.D. 04/20/2017 1:44 PM Dictated Date/Time: 04/20/2017 1:42 PM
--- NOTE | 2017-04-20 13:45 | DIAGNOSTIC IMAGING REPORT ---
L PELVIS/UNILATERAL HIP 2-3VIEWS CLINICAL HISTORY: HIP PAIN pain COMPARISON: None. DISCUSSION: Generalized degenerative change of the hips bilaterally. No well-defined acute bony abnormality. Radioactive seeds within the prosthetic bed. Moderate degenerative change sacroiliac joints. There is no evidence for soft tissue swelling. IMPRESSION: Generalized degenerative change. Osteopenia. No acute bony abnormality. The above report was generated using voice recognition software. It may contain grammatical, syntax or spelling errors. Electronically signed by: Prudencio Pickens M.D. 04/20/2017 1:44 PM Dictated Date/Time: 04/20/2017 1:43 PM
--- NOTE | 2017-04-20 13:48 | DIAGNOSTIC IMAGING REPORT ---
LEFT FEMUR 3 VIEWS CLINICAL HISTORY: Prostate cancer. Left hip pain. No reported history of trauma. FINDINGS: AP, frog-leg, and lateral views of the left femur are correlated with nuclear bone scan dated 08/14/2016. The skeletal structures are osteopenic. There is no radiographic evidence of left femoral fracture. The left hemipelvis appears intact. No osteoblastic lesion is identified in the left femur. Moderate to advanced arthritic change and joint space narrowing is present in the left hip. The overlying soft tissues are within normal limits. There is atherosclerotic calcification of the femoral artery. Brachytherapy seeds are noted in the prostate gland. The left knee joint is intact as imaged. IMPRESSION: 1. No acute bony abnormality or osteoblastic lesion is identified in the left femur. 2. Osteopenia with moderate to advanced arthritic change of the left hip as above. Electronically signed by: Ramon Ruggiero M.D. 04/20/2017 1:47 PM Dictated Date/Time: 04/20/2017 1:46 PM
== END | disposition home or self-care (01) ==
LOC: C.RAD 13:06
PROVIDERS: ATTEND Internal Medicine Hematology & Oncology
DX: C61 Malignant neoplasm of prostate (principal); M89.8X5 Other specified disorders of bone, thigh; I51.7 Cardiomegaly; M89.9 Disorder of bone, unspecified; R91.8 Other nonspecific abnormal finding of lung field; M85.852 Other specified disorders of bone density and structure, left thigh

== ENCOUNTER → 2017-04-24 | Outpatient (CLI) | payer BC ==
[~2017-04-24] MED LIST changes: -CYCL1CAP19 PO; +OPTIRAY 320 IV PRN; +OXYC-57 PO
--- NOTE | 2017-04-24 14:21 | DIAGNOSTIC IMAGING REPORT ---
CT SCAN OF THE ABDOMEN AND PELVIS WITH IV CONTRAST CLINICAL HISTORY: Prostate cancer. COMPARISON STUDY: Prior abdominal CT scans, most recently dated 12/22/2016. TECHNIQUE: Following the IV administration of 94 cc of Optiray 320, CT scan of the abdomen and pelvis is performed from the lung bases to the proximal femora. Images are reviewed in the axial, sagittal, and coronal planes. IV contrast was administered without complication. Automated dose control exposure was utilized. CT DOSE: 530.56 mGycm FINDINGS: Lung bases: The heart is time normal in size and without pericardial effusion. The coronary arteries are densely calcified. Numerous calcified granulomas are seen at the lung bases. There is no airspace consolidation or pleural effusion. Liver: The contrast-enhanced liver is normal in size, contour, and attenuation. There is no intrahepatic biliary ductal dilatation. The hepatic veins and portal veins are patent. Gallbladder: The gallbladder is normal as visualized. Spleen: Spleen is normal in size and attenuation. There are numerous calcified splenic granulomas. Pancreas: The pancreas is atrophic. The pancreas duct is normal in caliber. A 1.5 cm ovoid water attenuation lesion in the pancreatic head is seen on image #127. 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 Adrenal glands: Unremarkable. Kidneys: The contrast enhanced kidneys demonstrate cortical atrophy and are without hydronephrosis. The kidneys enhance symmetrically. There is a 6.1 cm cyst arising from the lower pole of the left kidney. Additional smaller cysts and too small to characterize cortical hypodensities are present in both kidneys and similar to previous. Abdominal vasculature: The abdominal aorta is normal in course and caliber noting advanced atherosclerotic calcification. Bowel: There is no bowel obstruction. There is advanced colonic diverticulosis without CT evidence of acute diverticulitis. The appendix is well-visualized and normal. There is diverticulosis of the distal small bowel. Peritoneum: There is no intraperitoneal free air or abdominal ascites. Trace fluid is seen in the left paracolic gutter. There is a small fat-containing umbilical hernia. Lymphadenopathy: Retroperitoneal lymphadenopathy is similar appearance to the 12/22/2016 examination. A left periaortic node on image #132 measures 2.8 x 2.0 cm (previously measured 2.1 x 1.9 cm). A more inferiorly located node on image #159 measures 1.8 x 1.5 cm (previously measured 1.6 x 1.9 cm.) A left iliac chain node on image #295 is unchanged measuring up to 1.5 cm. mildly enlarged retrocrural lymph nodes are unchanged and measure up to 1.3 cm as seen on image #89. No pelvic sidewall or inguinal lymphadenopathy is seen. Pelvic viscera: The prostate gland is diminutive and contains numerous brachytherapy beads. The bladder is decompressed and grossly unremarkable. Skeletal structures: The skeletal structures are osteopenic. No new lytic or blastic lesions are identified. A sclerotic lesion is again seen in the left sixth rib. The patient's known right fifth rib lesion is not included on today's examination. IMPRESSION: 1. There has been no significant change in retroperitoneal, retrocrural, and left iliac chain lymphadenopathy when compared to the 12/22/2016 examination. This remains consistent with metastatic disease. 2. No progressive osseous metastatic disease is identified. 3. A 1.6 cm cystic lesion is seen in the pancreatic head. This is unchanged and remains typical in appearance for a sidebranch IPMN. Continued attention at follow-up is recommended. 4. Advanced colonic diverticulosis without CT evidence of acute diverticulitis. 5. Additional changes as detailed above. Electronically signed by: Ramon Ruggiero M.D. 04/24/2017 2:20 PM Dictated Date/Time: 04/24/2017 2:10 PM
== END | disposition home or self-care (01) ==
LOC: C.CTS 13:51
PROVIDERS: ATTEND Internal Medicine Hematology & Oncology
DX: C61 Malignant neoplasm of prostate (principal); R59.0 Localized enlarged lymph nodes; K86.89 Other specified diseases of pancreas; K57.30 Diverticulosis of large intestine without perforation or abscess without bleeding

== ENCOUNTER 2017-04-25 08:22 | Day surgery (SDC) | payer BC ==
[2017-04-23 10:59] VITALS: BMI 22.0
[~2017-04-25] VITALS: Ht 177.8 cm; Wt 70.5 kg
[~2017-04-25 08:22] MED LIST changes: +CLINDAMYCIN 600 MG/54 ML D5W IV SCH; +FENTANYL CITRATE INJ 50 MCG/1 ML 2 ML VIAL ONE; +LACTATED RINGER'S 1000ML 1,000 ML IV SCH; +LIDOCAINE HCL 2% 2 ML VIAL (20MG/ML) ONE; +MIDAZOLAM HCL 1 MG/ML 2ML VIAL ONE; -OPTIRAY 320 IV PRN; -OXYC-57 PO; +PROPOFOL IV EMULSION 10 MG/ML 20 ML VIAL IV ONE; +SODIUM CHLORIDE 0.9% 1000ML 1,000 ML IV SCH
[2017-04-25 08:35] VITALS: BP 143/93; PULSE 102; TEMP 36.6; O2SAT 97; Ht 177.8 cm; Wt 70.5 kg
[2017-04-25] MEDS ORDERED: LIDOCAINE HCL 1% 20 ML VIAL ONE (10:38)
[2017-04-25] MEDS ORDERED: BUPIVACAINE/EPINEPHRINE 0.5% MPF 1:200,000 30 ML VIAL ONE (10:39)
--- NOTE | 2017-04-25 11:00 | History and Physical ---
History & Physical Date Apr 25, 2017. Chief Complaint Prostate cancer History of Present Illness The patient is a 81 year old male prostate cancer in need of a port insertion. Vitals Vital Signs Past 12 Hours Date Time Temp Pulse Resp B/P (MAP) Pulse Ox O2 Delivery O2 Flow Rate FiO2 04/25/17 08:35 36.6 102 18 143/93 (110) 97 Room Air Allergies Coded Allergies: Amoxicillin (Verified Allergy, Intermediate, HIVES, 04/25/17) unverified; has had them since with no problem Cephalexin (Verified Allergy, Intermediate, HIVES, 04/25/17) has had recent allergy testing; unverified Valacyclovir (Verified Allergy, Unknown, Unknown rxn, 04/25/17) Levofloxacin (Verified Adverse Reaction, Intermediate, RED VEIN, FLUSHED, 04/25/17) INFUSION RELATED Azithromycin (Verified Adverse Reaction, Mild, Nausea/Vomiting, 04/25/17) unverified; has taken since without porblems Home Medications Scheduled Atenolol (Tenormin), 12.5 MG PO QAM Atorvastatin (Lipitor), 80 MG PO DAILY Calcium/Vitamin D (Os-Colton 500 Plus D), 1 TABLET PO BID Denosumab (Xgeva), 120 MG IM Q4WK Digoxin (Digoxin), 125 MCG PO QAM Enoxaparin (Lovenox), 70 MG SQ Q24H Ezetimibe (Zetia), 10 MG PO DAILY Leuprolide Acetate (Lupron Depot), 7.5 MG IM Q3 MONTHS Multivitamins/Minerals (Mvi With Minerals), 1 TABLET PO QAM Prednisone Tab (Prednisone), 10 MG PO DAILY Scheduled PRN Nitroglycerin (Nitrostat), 0.4 MG UT UD PRN for Chest Pain Tramadol HCl (Tramadol HCl), 50 MG PO Q6 PRN for Pain Problem List Medical Problems: (1) Arthritis pain of shoulder (2) CAD (coronary artery disease) (3) Chronic diastolic (congestive) heart failure (4) Neutropenic fever (5) Pancytopenia due to antineoplastic chemotherapy (6) Prostate cancer (7) Pseudomonas septicemia Surgical / Medical History Hx Cardiac Surgery: Yes (STENTS) Hx Cancer Surgery: Yes (brachy therapy - prostate) Hx Thoracic Surgery: No (DENIED) Hx Orthopedic: No (DENIED) Hx Urinary Tract Surgery: No Past Medical/Surgical History: ASHD, Cancer Family History Cancer Heart disease Hypertension Social History Smoking Status: Former Smoker Hx Tobacco Use In Past Year?: No Hx Alcohol Use - Type & Amnt: No Hx Substance Use -Type & Amnt: No Review of Systems Constitutional: No chills, No diaphoresis, No fever, No malaise, No weakness, No weight gain, No weight loss, No sweats, No fatigue, No problem reported Respiratory: No cough, No cyanosis, No GOMEZ, No hemoptysis, No orthopnea, No PND , No short of breath, No sputum production, No stridor, No wheezing, No dyspnea , No problem reported Cardiovascular: No chest pain, No chest tightness, No chest pressure, No palpitations, No syncope, No diaphoresis, No edema, No intermittent claudication , No orthopnea, No cyanosis, No mumur, No lightheadedness, No paroxysmal nocturnal dyspnea, No problem reported Gastrointestinal: No abdominal pain, No constipation, No diarrhea, No nausea, No vomiting, No anorexia, No appetite changes, No belching, No flatulence, No food intolerance, No hematemesis, No hemorrhoids, No hematochezia, No stool changes, No heartburn, No indigestion, No dysphagia, No rectal bleeding, No problem reported Musculoskeletal: No back pain, No gout, No joint pain, No joint swelling, No muscle pain, No muscle stiffness, No muscle weakness, No neck pain, No problem reported Neurologic: No dizziness, No weakness, No headache, No lethargy, No numbness, No paresthesia, No pre-existing deficit, No seizures, No tics, No tingling, No tremors, No vertigo, No memory loss, No LOC, No problem reported Psychiatric: No anxiety, No alcohol abuse, No auditory hallucinations, No depression, No drug abuse, No homicidal ideation, No mood changes, No suicidal ideation, No visual hallucinations, No problem reported Physical Exam Constitutional: General Apperance: heathly-appearing, well-nourished, well-developed Level of Distress: NAD Ambulation: ambulating normally Psychiatric: Mental Status: active & alert, normal mood, normal affect Orientation: oriented except where noted, to time, to place, to person Memory: recent memory normal, remote memory normal Lungs: Auscultation: breath sounds normal Cardiovascular: Heart Auscultation: RRR Peripheral Pulses: Brachial Pulses: normal on the left, normal on the right Radial Pulse: normal on the left, normal on the right Femoral Pulse: normal on the left, normal on the right Abdomen: Inspection & Palpation: soft Musculoskeletal: normal Extremities: Upper Right: no cyanosis, no edema, no varicosities, no palpable cord, no clubbing, no ulcers, no mottling Upper Left: no cyanosis, no edema, no varicosities, no palpable cord, no clubbing, no ulcers, no mottling Lower Right: no cyanosis, no edema, no varicosities, no palpable cord, no clubbing, no ulcers, no mottling Lower Left: no cyanosis, no edema, no varicosities, no palpable cord, no clubbing, no ulcers, no mottling Neurologic: Gait & Station: normal gait, normal station Cranial Nerves: grossly intact Sensation: grossly intact Assessment and Plan Imp: Prostate cancer Plan: Patient for infusaport insertion. I have discussed the risks options and benefits of the procedure with the patient. The patient understands the risks options and benefits and agrees to the procedure.
[2017-04-25] MEDS ORDERED: LIDOCAINE HCL 1% 20 ML VIAL INJ ONE (11:35)
[2017-04-25] MEDS ORDERED: BUPIVACAINE/EPINEPHRINE 0.5% MPF 1:200,000 30 ML VIAL INJ ONE (11:35)
--- NOTE | 2017-04-25 11:54 | [facility] Post Operative Brief Note ---
Immediate Operative Summary Operative Date Apr 25, 2017. Pre-Operative Diagnosis prostate cancer Post-Operative Diagnosis prostate cancer Procedure(s) Performed Insertion Of Infusaport, Right Internal Jugular Approach, Ultrasound Localization Of Right Internal Jugular Vein, Fluoroscopy For Positioning Surgeon Dr. Olvera Obstetrics And Gynecology Professor Surgeon(s) none Estimated Blood Loss 10 ml Findings Consistent with Post-Op Diagnosis Specimens none Drains None Anesthesia Type MAC Complication(s) none Disposition Disposition:
[2017-04-25] MEDS ORDERED: PROPOFOL IV EMULSION 10 MG/ML 20 ML VIAL IV ONE (11:56)
[2017-04-25] MEDS ORDERED: OXYC-57 PO (11:56)
--- NOTE | 2017-04-25 11:58 | Discharge Instructions ---
Discharge Instructions Date of Service Apr 25, 2017. Visit Reason for Visit: Prostate Cancer Discharge Discharge Diagnosis / Problem: Prostate cancer Discharge Goals Goal(s): Therapeutic intervention Activity Recommendations Activity Limitations: per Instructions/Follow-up section Shower/Bathe: tomorrow Anesthesia . Post Anesthesia Instructions: If you have had General Anesthesia or IV Sedation: * Do not drive today. * Resume driving when surgeon permits. * Do not make important decisions or sign legal documents today. * Call surgeon for: 1. Temperature elevations greater than 101 degrees F. 2. Uncontrollable pain. 3. Excessive bleeding. 4. Persistent nausea and vomiting. 5. Medication intolerance (nausea, vomiting or rash). * For nausea and vomiting use only clear liquids such as: tea, soda, bouillon until nausea subsides, then gradually increase diet as tolerated. * If you have any concerns or questions, call your surgeon's office. If physician is unavailable and it is an emergency, call 911 or go to the nearest emergency room. . Instructions / Follow-Up Instructions / Follow-Up Call [phone] to schedule a follow up appointment if one not already scheduled. SPECIAL CARE INSTRUCTIONS: Medications: * Continue to take your medications as directed. If you have been given a prescription for Plavix, please fill it immediately and take as directed. Incision Care: * Your puncture site may have some bruising and minor swelling for about one week. * You will have a small dressing covering your puncture site. You may remove the dressing after 24 hours and shower. You may let the warm soapy water run over it, but be sure to dry the puncture site well and keep it dry. * DO NOT IMMERSE THE INCISION IN A TUB/POOL/etc. UNTIL HEALED. * Puncture sites should be kept covered with a band-aid until it begins to heal. Restrictions: * Depending on whether you leg or arm was punctured to access the arteries, you will be required to lay flat, hold your arm still, or both, for about 4 hours after the procedure to prevent bleeding. * Limit your activity for the first 48 hours. You may walk and go up and down steps. Avoid excessive bending or movement at the puncture site. Possible Complications: * Excessive Swelling - after blood flow is improved you may notice increased swelling in the lower legs. This is a normal response. This usually depends on the amount of blockages in the leg, how long they have been there prior to your procedure and how much blood flow was restored. Elevating your legs will help to improve this. Please notify our office ([phone] ) if the swelling does not go away after lying in bed overnight. * Infection/Drainage/Bleeding - Drainage or bleeding from the puncture site should be minimal. If you have excessive bleeding or drainage, call our office ([phone]) right away. * Pain - You may experience some mild pain or soreness at your puncture site. If your pain does not improve, please contact our office ([phone]). Call your doctor and seek emergent treatment if you develop: * Temperature above 101 degrees * Any fever or chills * Any redness or purulent drainage from the puncture site * Any new dusky/blue colored toes or feet with coolness or sharp or aching pain. SKIN IRRITATION: * You may experience some redness and/or swelling in the area where radiation was administered. If any skin irritation occurs, please contact your family physician. FOLLOW UP VISIT: Keep any scheduled doctor appointments. Diet Recommendations Recommended Home Diet: resume previous diet Procedures Procedures Performed: Insertion Of Infusaport, Right Internal Jugular Approach, Ultrasound Localization Of Right Internal Jugular Vein, Fluoroscopy For Positioning Pending Studies Studies pending at discharge: no Medical Emergencies . Who to Call and When: Medical Emergencies: If at any time you feel your situation is an emergency, please call 911 immediately. . Non-Emergent Contact Non-Emergency issues call your: Surgeon . . "Provider Documentation" section prepared by Glen Olvera. .
[2017-04-25] MEDS ORDERED: PROMETHAZINE HCL INJ 6.25 MG in SODIUM CHLORIDE 0.9% 50ML 50 ML IV PRN (12:00)
[2017-04-25] MEDS ORDERED: ATROPINE SULFATE 0.1 MG/ML 5ML SYR IV PRN (12:00)
[2017-04-25] MEDS ORDERED: ONDANSETRON INJ 2 MG/ML 2 ML VIAL IV PRN (12:00)
[2017-04-25] MEDS ORDERED: EpHEDrine SULFATE INJ 50 MG/ML AMP IV PRN (12:00)
[2017-04-25] MEDS ORDERED: FENTANYL CITRATE INJ 50 MCG/1 ML 2 ML VIAL IV PRN (12:00)
[2017-04-25 12:19] VITALS: BP 117/65; PULSE 88; TEMP 36.4; O2SAT 100
[2017-04-25 12:30] VITALS: BP 140/70; PULSE 85; TEMP 36.4; O2SAT 97
--- NOTE | 2017-04-25 12:32 | Anesthesiology Progress Note ---
Anesthesia Post Op Note Date & Time Apr 25, 2017 at 12:32 Vital Signs Pain Intensity: 0 Vital Signs Past 12 Hours Date Time Temp Pulse Resp B/P (MAP) Pulse Ox O2 Delivery O2 Flow Rate FiO2 04/25/17 12:19 36.4 88 18 117/65 100 Room Air 04/25/17 08:35 36.6 102 18 143/93 (110) 97 Room Air Notes Mental Status: alert / awake / arousable, participated in evaluation Pt Amnestic to Procedure: Yes Nausea / Vomiting: adequately controlled Pain: adequately controlled Airway Patency, RR, SpO2: stable & adequate BP & HR: stable & adequate Hydration State: stable & adequate Anesthetic Complications: no major complications apparent
--- NOTE | 2017-04-25 14:07 | [facility] Operative Report ---
Operative Report Operative Date Apr 25, 2017. Pre-Operative Diagnosis prostate cancer Post-Operative Diagnosis prostate cancer Procedure(s) Performed Insertion Of Infusaport, Right Internal Jugular Approach, Ultrasound Localization Of Right Internal Jugular Vein, Fluoroscopy For Positioning Surgeon Dr. Olvera Manager Heavy Equipment Surgeon(s) none Estimated Blood Loss 10 ml Findings Tip in mid SVC Specimens none Anesthesia MAC Complication(s) None Disposition Description of Procedure Patient was takent to the angio suite and placed in the supine position. The right side of the neck and chest wall were prepped and draped in a sterile manner. Local anesthesia was then administered to the appropriate areas of the neck and chest wall. A transverse incision was then made approximately 3 fingerbreadths below the clavicle on the right side. An inferior pocket was then made using the electrocautery. Adequate hemostasis was then obtained. Ultrasound was then used to locate the right internal jugular vein. The vein compressed easily, had no filing defects, and was patent. The vein was then punctured under direct ultrasound imaging. A guidewire was then passed centrally under fluoroscopic imaging. The infusaport catheter was passed from the incision on the chest wall to the puncture site on the neck. The peel away sheath was inserted. The catheter was then inserted through the sheath to a central position in the mid superior vena cava. The peel away sheath was then removed. The catheter was then trimmed the appropriate length and placed on the port. The catheter was then secured with the catheter clamp. The puncture was then closed using a 4-0 Vicryl subcuticular suture. The incision was then closed using 3-0 Vicryl suture for the subcutaneous tissue and 4-0 Vicryl for the skin edge using a subcuticular stitch. Dermabond was using for the dressing. The patient left the operation room in satisfactory condition and tolerated the procedure well. All needle and sponge counts were correct at the end of the procedure. I attest to the content of the Intraoperative Record and any orders documented therein. Any exceptions are noted below.
== END 2017-04-25 13:14 | disposition home or self-care (01) ==
LOC: C.ACU 08:22
PROVIDERS: ATTEND Surgery Vascular Surgery
DX: C61 Malignant neoplasm of prostate (principal); I25.10 Atherosclerotic heart disease of native coronary artery without angina pectoris; I10 Essential (primary) hypertension; Z88.0 Allergy status to penicillin; Z88.1 Allergy status to other antibiotic agents; Z79.899 Other long term (current) drug therapy; Z80.9 Family history of malignant neoplasm, unspecified; Z82.49 Family history of ischemic heart disease and other diseases of the circulatory system; Z87.891 Personal history of nicotine dependence; Z98.49 Cataract extraction status, unspecified eye

== ENCOUNTER → 2017-06-25 | Outpatient (CLI) | payer BC ==
[~2017-06-25] MED LIST changes: -CLINDAMYCIN 600 MG/54 ML D5W IV SCH; -FENTANYL CITRATE INJ 50 MCG/1 ML 2 ML VIAL ONE; +GADAVIST IV PRN; -LACTATED RINGER'S 1000ML 1,000 ML IV SCH; -LIDOCAINE HCL 2% 2 ML VIAL (20MG/ML) ONE; -MIDAZOLAM HCL 1 MG/ML 2ML VIAL ONE; +OXYC-57 PO; -PROPOFOL IV EMULSION 10 MG/ML 20 ML VIAL IV ONE; -SODIUM CHLORIDE 0.9% 1000ML 1,000 ML IV SCH
--- NOTE | 2017-06-26 07:57 | DIAGNOSTIC IMAGING REPORT ---
MRI OF THE PELVIS WITH AND WITHOUT CONTRAST CLINICAL HISTORY: Left hip pain. History of prostate cancer. COMPARISON STUDY: CT of the abdomen and pelvis April 24, 2017, bone scan January 20, 2016 and PET/CT May 25, 2014. TECHNIQUE: Utilizing a 1.5 Agnieszka magnet and dedicated coil, multiplanar, multiecho imaging of the pelvis and hips was performed pre and postcontrast administration. Injection of 7.5 cc of Gadavist IV was uneventful. FINDINGS: Sacroiliac joints and symphysis pubis are intact. A mildly enlarged left external iliac node shown on axial image 16 of 38 has mildly increased in size since CT of April 24, 2017. This node now measures 2.6 x 1.8 cm. It previously measured 2.1 x 1.1 cm. There is severe left hip joint space narrowing with subchondral cystic change within the left femoral head. There is moderate marrow signal abnormality with the left femoral head which extends into the intertrochanteric region. A displaced fracture is not identified. There is mild adjacent soft tissue edema. There is a small left joint effusion. No suspicious osseous lesions are identified. There is trace fluid along the anterolateral aspects of both iliac bones. Note is made of sigmoid diverticulosis without evidence for acute diverticulitis. There is no evidence for avascular necrosis. IMPRESSION: 1. Severe osteoarthritis of the left hip with near complete loss of the joint space, subchondral cystic change and edema within left femoral head which is related to severe osteoarthritis. Edema extending into the intertrochanteric region and femoral neck is also likely related to osteoarthritis. A nondisplaced insufficiency fracture is considered less likely but would be difficult to completely exclude on this exam. If persistent symptoms, a short-term follow-up exam might be considered. Small left hip joint effusion with mild edema within the adjacent soft tissues. 2. No suspicious osseous lesions within the pelvis or hips. 3. Mild interval enlargement of a left external iliac lymph node since CT of April 24, 2017. This may reflect disease progression. Electronically signed by: Trell Moseley M.D. 06/26/2017 7:56 AM Dictated Date/Time: 06/25/2017 3:34 PM
== END | disposition home or self-care (01) ==
LOC: C.MRI 13:30
PROVIDERS: ATTEND Internal Medicine Hematology & Oncology
DX: C61 Malignant neoplasm of prostate (principal); M16.12 Unilateral primary osteoarthritis, left hip

== ENCOUNTER → 2017-10-18 | Outpatient (CLI) | payer BC ==
[~2017-10-18] MED LIST changes: -GADAVIST IV PRN; +OPDIVO INJ; -OXYC-57 PO; +[UNRECOGNIZED DRUG - OTHER] INJ
--- NOTE | 2017-10-18 10:55 | DIAGNOSTIC IMAGING REPORT ---
CHEST 2 VIEWS ROUTINE CLINICAL HISTORY: 82 years-old Male presenting with preoperative examination. TECHNIQUE: PA and lateral views of the chest were obtained. COMPARISON: 04/20/[address] from 09/05/2017. FINDINGS: Right internal jugular Mediport terminates in the SVC. Atherosclerosis of the aortic arch. Prominence and mild tortuosity of the descending thoracic aorta. Cardiac silhouette top normal in size. Extensive calcified mediastinal and hilar lymph nodes noted. Numerous calcified granulomata. Vague density in the right apex in comparison to the left as seen on CT. No new focal opacity. No pleural effusion or pneumothorax. Sclerosis of the right fifth rib. Foci of abnormal sclerosis in the anterior right third and fourth and left anterior fourth through sixth ribs not as well appreciated. Upper abdomen normal. IMPRESSION: 1. No new focal infiltrate. Persistent vague right apical infiltrate. 2. Evidence of advanced prior granulomatous infection. 3. 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 Additional sclerotic rib lesions better appreciated on most recent chest CT. Electronically signed by: Ramesh Acuna M.D. 10/18/2017 10:54 AM Dictated Date/Time: 10/18/2017 10:50 AM
[2017-10-18 11:46] LABS: EOS % 0.3 %; EOS ABS # 0.02 K/uL (0-0.5); HEMATOCRIT 37.7 % (42-52); HEMOGLOBIN 12.6 g/dL (14.0-18.0); IG# 0.02 K/uL (0.00-0.02); LYMPH % 13.2 %; LYMPH ABS # 0.76 K/uL (1.2-3.4); MEAN CORPUSCULAR HEMOGLOBIN 35.1 pg (25-34); MEAN CORPUSCULAR HGB CONC 33.4 g/dl (32-36); MEAN PLATELET VOLUME 9.5 fL (7.4-10.4); MONO ABS # 0.46 K/uL (0.11-0.59); NEUT % 78.2 %; NEUT ABS # 4.51 K/uL (1.4-6.5); PLATELET COUNT 136 K/uL (130-400); RED CELL DISTRIBUTION WIDTH CV 14.3 % (11.5-14.5); RED CELL DISTRIBUTION WIDTH SD 55.2 fL (36.4-46.3); WHITE BLOOD COUNT 5.77 K/uL (4.8-10.8)
[2017-10-18 12:08] LABS: PTT PATIENT 30.3 SECONDS (21.0-31.0)
[2017-10-18 12:34] LABS: HEMOGLOBIN A1C 5.3 % (4.5-5.6)
== END | disposition home or self-care (01) ==
LOC: C.CPL 09:48
PROVIDERS: ATTEND Orthopaedic Surgery
DX: Z01.818 Encounter for other preprocedural examination (principal)

== ENCOUNTER → 2017-10-23 | Outpatient (CLI) | payer BC ==
[~2017-10-23] MED LIST changes: -[UNRECOGNIZED DRUG - OTHER] INJ
[2017-10-23 13:30] LABS: BASO % 0.4 %; BASO ABS # 0.02 K/uL (0-0.2); EOS % 0.7 %; EOS ABS # 0.03 K/uL (0-0.5); HEMATOCRIT 37.3 % (42-52); HEMOGLOBIN 12.5 g/dL (14.0-18.0); IG# 0.01 K/uL (0.00-0.02); LYMPH % 26.2 %; LYMPH ABS # 1.19 K/uL (1.2-3.4); MEAN CORPUSCULAR HEMOGLOBIN 34.5 pg (25-34); MEAN CORPUSCULAR HGB CONC 33.5 g/dl (32-36); MEAN PLATELET VOLUME 9.2 fL (7.4-10.4); MONO % 8.6 %; MONO ABS # 0.39 K/uL (0.11-0.59); NEUT % 63.9 %; PLATELET COUNT 125 K/uL (130-400); RED CELL DISTRIBUTION WIDTH CV 14.3 % (11.5-14.5); RED CELL DISTRIBUTION WIDTH SD 53.8 fL (36.4-46.3); WHITE BLOOD COUNT 4.54 K/uL (4.8-10.8)
[2017-10-23 14:13] LABS: ALBUMIN 3.4 gm/dl (3.4-5.0); ALKALINE PHOSPHATASE 50 U/L (45-117); ALT/SGPT 28 U/L (12-78); AST/SGOT 34 U/L (15-37); BLOOD UREA NITROGEN 20 mg/dl (7-18); CALCIUM 8.9 mg/dl (8.5-10.1); CARBON DIOXIDE 24 mmol/L (21-32); CREATININE 1.34 mg/dl (0.60-1.40); GLUCOSE 118 mg/dl (70-99); POTASSIUM 4.1 mmol/L (3.5-5.1); SODIUM 138 mmol/L (136-145); TOTAL PROTEIN 6.5 gm/dl (6.4-8.2)
== END | disposition home or self-care (01) ==
LOC: C.LABSPEC 13:19
PROVIDERS: ATTEND Internal Medicine Hematology & Oncology
DX: C61 Malignant neoplasm of prostate (principal)

== ENCOUNTER → 2017-10-25 | Outpatient (CLI) | payer BC ==
[~2017-10-25] MED LIST changes: +OPTIRAY 320 IV PRN
--- NOTE | 2017-10-25 13:20 | DIAGNOSTIC IMAGING REPORT ---
(CHEST) THORAX WITHOUT CT DOSE: 485.09 mGy.cm HISTORY: Prostate carcinoma 10/23/17 1315 EstGFR(NON Ron 48.6 TECHNIQUE: Multiaxial CT images of the chest were performed without contrast. A dose lowering technique was utilized adhering to the principles of ALARA. COMPARISON: None. FINDINGS: Generally stable exam compared to the prior study. Right axillary adenopathy is perhaps slightly progressive by 1 to 2 mm. Mediastinal and hilar adenopathy is stable. Fibrotic changes right pulmonary apex are stable to perhaps slightly increased in consolidative change. No significant associated nodular density. Blastic metastatic change is stable. Upper abdominal adenopathy appears stable to slightly progressive in the periaortic and celiac axis regions. Potential developing left renal hydronephrosis. IMPRESSION: 1. Stable to minimally progressive adenopathy within the right axillary and upper abdominal region. 2. Developing left hydronephrosis. 3. Slightly progressive fibrotic change right pulmonary apex. 4. Stable musculoskeletal metastatic change. The above report was generated using voice recognition software. It may contain grammatical, syntax or spelling errors. Electronically signed by: Prudencio Pickens M.D. 10/25/2017 1:19 PM Dictated Date/Time: 10/25/2017 1:05 PM
--- NOTE | 2017-10-25 13:32 | DIAGNOSTIC IMAGING REPORT ---
ABDOMEN AND PELVIS CT WITH ORAL CONTRAST CT DOSE: HISTORY: Prostate cancer. TECHNIQUE: Multiaxial CT images of the abdomen and pelvis were performed following the use of oral contrast. A dose lowering technique was utilized adhering to the principles of ALARA. COMPARISON STUDY: Abdomen and pelvis CT 09/05/2017. FINDINGS: Scattered punctate calcified granulomas seen within the lung bases. No pneumoperitoneum. No pneumatosis. The left sixth rib lesion is partially visualized. There are total of 3 sclerotic lesions seen within the right sacrum and pelvis. These have increased in size. Dominant lesion within the right anterior iliac bone on image 55 measures 9 mm, previously measuring 5 mm. The unenhanced liver, gallbladder,, and adrenal glands are unremarkable. Stable 1 cm hypodense lesion within the right kidney. Interval development of moderate left-sided hydroureteronephrosis to the level of the ureterovesical junction. There are no obstructing ureteral stones. The bladder is decompressed and not well visualized. Multiple brachytherapy seeds seen within the prostate gland. No change in the left lower pole renal cyst. Stable 1.5 cm cystic lesion at the pancreatic head. No significant change in the retroperitoneal and bilateral iliac lymphadenopathy. Colonic diverticulosis. No bowel wall thickening or obstruction. Normal appendix. IMPRESSION: 1. Slight progression of the sclerotic metastatic lesions seen within the right hemipelvis and sacrum. 2. No significant change in the retroperitoneal and bilateral iliac lymphadenopathy. 3. Interval development of moderate left hydroureteronephrosis to the level of the ureterovesical junction. No obstructing stones identified. This raises the possibility of an occult obstructing lesion. Urology consultation recommended. 4. Additional findings as described above. Electronically signed by: Yinka Chang M.D. 10/25/2017 1:31 PM Dictated Date/Time: 10/25/2017 1:15 PM
== END | disposition home or self-care (01) ==
LOC: C.CTS 12:51
PROVIDERS: ATTEND Internal Medicine Hematology & Oncology
DX: C61 Malignant neoplasm of prostate (principal); C79.51 Secondary malignant neoplasm of bone; N13.30 Unspecified hydronephrosis

== ENCOUNTER → 2017-11-01 | Outpatient (CLI) | payer BC ==
[~2017-11-01] MED LIST changes: -OPTIRAY 320 IV PRN
== END | disposition home or self-care (01) ==
LOC: C.LABSPEC 09:58
PROVIDERS: ATTEND Urology
DX: Z01.818 Encounter for other preprocedural examination (principal)

== ENCOUNTER 2017-11-05 09:48 | Day surgery (SDC) | payer BC ==
[~2017-11-05] VITALS: Ht 177.8 cm; Wt 63.6 kg
[~2017-11-05 09:48] MED LIST changes: +CIPROFLOXACIN / D5W 400 MG IV SCH; +LACTATED RINGER'S 1000ML 1,000 ML IV SCH; -OPDIVO INJ
[2017-11-05 10:23] VITALS: BP 126/94; PULSE 105; TEMP 37.1; O2SAT 97; Ht 177.8 cm; Wt 63.6 kg
[2017-11-05] MEDS ORDERED: FENTANYL CITRATE INJ 50 MCG/1 ML 2 ML VIAL IV PRN (11:30)
[2017-11-05] MEDS ORDERED: ATROPINE SULFATE 0.1 MG/ML 5ML SYR IV PRN (11:30)
[2017-11-05] MEDS ORDERED: ONDANSETRON INJ 2 MG/ML 2 ML VIAL IV PRN (11:30)
[2017-11-05] MEDS ORDERED: LIDOCAINE HCL 2% 2 ML VIAL (20MG/ML) ONE (12:21)
[2017-11-05] MEDS ORDERED: FENTANYL CITRATE INJ 50 MCG/1 ML 2 ML VIAL ONE (12:21)
[2017-11-05] MEDS ORDERED: PROPOFOL IV EMULSION 10 MG/ML 20 ML VIAL ONE ×3 (12:21→13:38)
[2017-11-05] MEDS ORDERED: MIDAZOLAM HCL 1 MG/ML 2ML VIAL ONE (12:21)
--- NOTE | 2017-11-05 12:33 | History & Physical Bridge Note ---
H&P Re-Evaluation Bridge Note: I have examined the patient, reviewed the History & Physical and in the interval since the performance of the History & Physical I have noted the following changes of clinical significance: No changes noted
[2017-11-05] MEDS ORDERED: Cysto-Conray II 17.2% 250ML BOTTLE ONE (12:45)
[2017-11-05] MEDS ORDERED: METHYLENE BLUE 0.5% 10 ML VIAL ONE (13:53)
--- NOTE | 2017-11-05 14:07 | [facility] Operative Report ---
Operative Report Operative Date Nov 05, 2017. Pre-Operative Diagnosis Left hydronephrosis Post-Operative Diagnosis Left hydronephrosis Procedure(s) Performed Cystoscopy with attempted stent placement Surgeon Dr. Burk Sales Engineering Manager Surgeon(s) none Estimated Blood Loss 1mL Findings Cystoscopic exam revealed a normal anterior urethra prostatic fossa was obstructing bladder showed prostate tumor growing into the bladder covering the left trigone Specimens none per surgeon Drains None Anesthesia Type MAC Complication(s) none Disposition yes Indications 82-year-old white male with metastatic prostate cancer found to have hydronephrosis on CT scan being brought in for stent placement Description of Procedure After the induction of an adequate level of intravenous sedation appropriate timeout patient was placed in the dorsolithotomy position. Lower abdomen and genitalia were prepped with Hibiclens draped in a sterile fashion. Using a 22 Italian cystoscope routine cystoscopic exam was performed with the above-noted findings with 30 and 70 lenses. I was unable to visualize the left ureteral orifice. Patient was given methylene blue but no dye was ever seen effluxing from the left or right side. I tried to find the left ureteral orifice by gently probing with a 0.038 guidewire up and down the trigone but was unable to find the orifice. After multiple attempts at probing the left trigone the procedure was aborted. Patient will need to go and have a nephrostomy tube placed. Patient's bladder was drained at the end of the case all needle sponge and instrument counts were correct at the end of the case patient tolerated the procedure well was taken to recovery in stable condition I attest to the content of the Intraoperative Record and any orders documented therein. Any exceptions are noted below.
--- NOTE | 2017-11-05 14:09 | Discharge Instructions ---
Discharge Instructions Date of Service Nov 05, 2017. Visit Reason for Visit: Left Hydronephrosis Discharge Discharge Diagnosis / Problem: Left hydronephrosis Discharge Goals Goal(s): Therapeutic intervention Activity Recommendations Activity Limitations: per Instructions/Follow-up section Exercise/Sports Limitations: as tolerated, rest today May Resume Sexual Activity: when tolerated Shower/Bathe: no limitations Driving or Machine Use: resume 1 day after discharge Anesthesia . Post Anesthesia Instructions: If you have had General Anesthesia or IV Sedation: * Do not drive today. * Resume driving when surgeon permits. * Do not make important decisions or sign legal documents today. * Call surgeon for: 1. Temperature elevations greater than 101 degrees F. 2. Uncontrollable pain. 3. Excessive bleeding. 4. Persistent nausea and vomiting. 5. Medication intolerance (nausea, vomiting or rash). * For nausea and vomiting use only clear liquids such as: tea, soda, bouillon until nausea subsides, then gradually increase diet as tolerated. * If you have any concerns or questions, call your surgeon's office. If physician is unavailable and it is an emergency, call 911 or go to the nearest emergency room. . Diet Recommendations Recommended Home Diet: resume previous diet Procedures Procedures Performed: Cystoscopy with attempted stent placement Pending Studies Studies pending at discharge: no Medical Emergencies . Who to Call and When: Medical Emergencies: If at any time you feel your situation is an emergency, please call 911 immediately. . Non-Emergent Contact Non-Emergency issues call your: Urologist Call Non-Emergent contact if: temperature is above 101.5, your pain is not controlled . . "Provider Documentation" section prepared by Jesse Burk. .
[2017-11-05] MEDS ORDERED: TRAMADOL/ACETAMINOPHEN 37.5/325MG TAB PO PRN (14:15)
[2017-11-05 14:40] VITALS: BP 133/78; PULSE 94; TEMP 36.4; O2SAT 95
--- NOTE | 2017-11-05 14:45 | Anesthesiology Progress Note ---
Anesthesia Post Op Note Date & Time Nov 05, 2017 at 14:45 Vital Signs Pain Intensity: 0 Vital Signs Past 12 Hours Date Time Temp Pulse Resp B/P (MAP) Pulse Ox O2 Delivery O2 Flow Rate FiO2 11/05/17 14:25 36.4 11/05/17 14:20 96 16 118/81 94 Room Air 11/05/17 14:10 101 16 121/76 99 Room Air 11/05/17 14:04 36.8 103 16 123/77 99 Oxymask 10 11/05/17 10:23 37.1 105 20 126/94 (105) 97 Room Air Notes Mental Status: alert / awake / arousable, participated in evaluation Pt Amnestic to Procedure: Yes Nausea / Vomiting: adequately controlled Pain: adequately controlled Airway Patency, RR, SpO2: stable & adequate BP & HR: stable & adequate Hydration State: stable & adequate Anesthetic Complications: no major complications apparent
[2017-11-05 15:10] VITALS: BP 122/81; PULSE 93; O2SAT 95
[2017-11-05 15:25] VITALS: BP 100/62; PULSE 113; TEMP 36.8; O2SAT 97
== END 2017-11-05 15:36 | disposition home or self-care (01) ==
LOC: C.ACU 09:48
PROVIDERS: ATTEND Urology
DX: N13.30 Unspecified hydronephrosis (principal); I10 Essential (primary) hypertension; I25.10 Atherosclerotic heart disease of native coronary artery without angina pectoris; I48.91 Unspecified atrial fibrillation; E78.5 Hyperlipidemia, unspecified; Z87.891 Personal history of nicotine dependence; Z85.46 Personal history of malignant neoplasm of prostate; Z79.899 Other long term (current) drug therapy; I25.2 Old myocardial infarction; Z88.0 Allergy status to penicillin; Z88.1 Allergy status to other antibiotic agents

== ENCOUNTER → 2017-11-21 | Outpatient (CLI) | payer OTHER, BC ==
[~2017-11-21] MED LIST changes: -CIPROFLOXACIN / D5W 400 MG IV SCH; -LACTATED RINGER'S 1000ML 1,000 ML IV SCH
[2017-11-21 14:45] LABS: BASO % 0.2 %; BASO ABS # 0.01 K/uL (0-0.2); EOS % 0.6 %; EOS ABS # 0.03 K/uL (0-0.5); HEMATOCRIT 33.8 % (42-52); HEMOGLOBIN 11.2 g/dL (14.0-18.0); IG# 0.01 K/uL (0.00-0.02); LYMPH % 25.2 %; LYMPH ABS # 1.23 K/uL (1.2-3.4); MEAN CELL VOLUME 103.4 fL (80-100); MEAN CORPUSCULAR HEMOGLOBIN 34.3 pg (25-34); MEAN CORPUSCULAR HGB CONC 33.1 g/dl (32-36); MEAN PLATELET VOLUME 9.3 fL (7.4-10.4); MONO % 7.6 %; MONO ABS # 0.37 K/uL (0.11-0.59); NEUT % 66.2 %; NEUT ABS # 3.24 K/uL (1.4-6.5); PLATELET COUNT 114 K/uL (130-400); RED CELL DISTRIBUTION WIDTH CV 14.6 % (11.5-14.5); RED CELL DISTRIBUTION WIDTH SD 54.6 fL (36.4-46.3); WHITE BLOOD COUNT 4.89 K/uL (4.8-10.8)
[2017-11-21 15:14] LABS: ALBUMIN 3.1 gm/dl (3.4-5.0); ALT/SGPT 22 U/L (12-78); AST/SGOT 33 U/L (15-37); BLOOD UREA NITROGEN 20 mg/dl (7-18); CALCIUM 8.9 mg/dl (8.5-10.1); CARBON DIOXIDE 25 mmol/L (21-32); GLUCOSE 106 mg/dl (70-99); POTASSIUM 3.9 mmol/L (3.5-5.1); SODIUM 138 mmol/L (136-145)
[2017-11-21 15:23] LABS: ALKALINE PHOSPHATASE 52 U/L (45-117); TOTAL PROTEIN 6.3 gm/dl (6.4-8.2)
== END | disposition home or self-care (01) ==
LOC: C.LABSPEC 14:05
PROVIDERS: ATTEND Nurse Practitioner Family
DX: C61 Malignant neoplasm of prostate (principal)